=== PATIENT | male | born 1955 | race Caucasian/White ===

== ENCOUNTER 2021-06-12 08:31 | Outpatient (CLI) | payer OTHER, SELFPAY ==
--- NOTE | ~2021-06-12 | PE_ITS ---
EXAMINATION: PET skull to mid thigh DATE: 06/12/2021 13:13 INDICATION: Esophageal cancer TECHNIQUE: Blood glucose level was 117 mg/dL. 10.095 mCi of 18-fluorodeoxyglucose (18-FDG) was admini stered i.v. Low dose computed tomography (CT) images were acquired from the base of the brain to the proximal thighs for attenuation correction and anatomic localization. Positron emission tomography (P ET) images were acquired in the same distribution beginning 71 minutes after injection. Images includ ing fused PET/CT images were reconstructed in axial, coronal, and sagittal planes. Automated exposure control technique was employed. The dose-length product was 957.80mGy-cm. COMPARISON: None FINDINGS: Head/neck: There is symmetric increased activity in the oral cavity, laryngeal muscles and ocular muscles withou t CT correlate, likely physiologic. No pathologically enlarged cervical lymphadenopathy or suspicious foci of increased FDG uptake in the visualized head or neck. Chest: Dual lead pacemaker seen with tips at the right atrial appendage and at the apex of the right ventric le. 3 small nodules at the apical segment of the right upper lobe measuring up to 5 mm in maximal luis meter without discernible FDG activity. No other larger or FDG avid nodules identified. No pneumonia, poor edema or other pulmonary infiltrates. No pleural effusion. Heart size is normal. No pericardial effusion. Thoracic aorta is normal in caliber. FDG avid wall thickening at the distal esophagus with maximal SUV of 7.9 and extending into the cardia of the stomach with maximal SUV is 9.5. No patholog ically enlarged or FDG avid thoracic lymphadenopathy. Abdomen/pelvis/proximal thighs: There is a subtle approximately 2 cm hypodense mass at the posterior dome of the liver with increased FDG uptake with maximal SUV of 4.1 relative to the maximal SUV in the surrounding liver of 3.0. No o ther definitive hepatic lesions identified. In addition to the previous noted increased FDG uptake at the esophagus and cardia of the stomach, there is slightly more inferior conglomeration of likely me tastatic FDG avid lymph node which abut and are difficult to distinguish from the adjacent aorta and the cephalad margin of the pancreas. The conglomeration measures approximately 3.8 cm in diameter and which are 2 centers of increased FDG uptake with maximal SUV of 7.3 and 6.0. Physiologic renal accum ulation and excretion of FDG activity in the kidneys, bladder and along portions of ureters. The gal lbladder, pancreas, spleen and bilateral adrenal glands are normal. Moderate uptake scattered through out the bowels without radiologic correlate, also likely physiologic. There is an approximately 2.3 x 1.2 cm FDG avid aortocaval lymph node which abuts and is difficult to distinguish from the aorta jus t below level of the renal arteries with maximal SUV of 4.7. No other abnormal foci of increased FDG uptake or other pathologically enlarged lymphadenopathy in the abdomen, pelvis or proximal thighs. Musculoskeletal: Small amount of likely extravasated activity at the site of injection at the dorsum of the right hand . Increased uptake overlying the bilateral greater trochanters consistent with mild trochanteric burs itis. Mild diffuse likely physiologic increased uptake along some of the muscle at the bilateral fore arms. Severe lower lumbar spondylosis. Osteonecrosis at the bilateral femoral heads more advanced on the right where there is small region of collapse of the articular cortex. No suspicious lytic, blast ic or FDG avid bone lesions. IMPRESSION: 1. Prominent FDG avid wall thickening at the distal esophagus extending to the cardia of the stomach consistent with provided history of esophageal cancer. 2. Increased uptake in a conglomeration of lymph nodes anterior to the liberty of the diaphragm and more caudal aortocaval lymph node consistent with
[2021-06-12 09:46] LABS: Glucose Point of Care 117 mg/dl (65-105)
== END 2021-06-12 08:32 | disposition home or self-care (01) ==
PROVIDERS: PCP Internal Medicine; Visit Provider Internal Medicine Hematology & Oncology
DX: C15.5 Malignant neoplasm of lower third of esophagus (principal)
CPT/HCPCS: 78815; A9552

== ENCOUNTER 2021-07-04 08:27 | Outpatient (CLI) | payer OTHER, SELFPAY ==
--- NOTE | 2021-07-04 | ECHO_ITS ---
Patient Info Name: Jordi Segura Age: 65 years : 1955 Gender: Male Ht: 72 in Wt: 195 lbs BSA: 2.13 m2 HR: 73 bpm BP: 114 / 73 mmHg Technical Quality: Fair Exam Date: 07/04/2021 9:17 AM Exam Location: [facility] Patient Status: Outpatient Admit Date: 07/04/2021 Staff Ordering Physician: Dean Marx MD Supervisor [employer]: Bayron Aguayo RDCS, RT Attending Provider: Dean Marx MD Referring Physician: Francisco J WARNER; Exam Type: CA echo doppler color flow Study Info Indications C77.0 - Secondary and unspecified malignant neoplasm of lymph nodes of head, face and neck Complete two-dimensional, color flow and Doppler transthoracic echocardiogram is performed. Strain analysis performed. Summary 1. Complete two-dimensional, color flow and Doppler transthoracic echocardiogram is performed. 2. Left ventricular systolic function is preserved, estimated at 50-55%. 3. Left ventricular chamber dimension is normal. 4. The left ventricular diastolic function is grade I diastolic dysfunction. 5. E/e' 7 is not elevated. 6. Global longitudinal strain is slightly abnormal at -16.9%. 7. There is trace tricuspid valve regurgitation. 8. No pulmonary hypertension, estimated pulmonary arterial systolic pressure is 32 mmHg. 9. There is trace pulmonic regurgitation. 10. Normal inferior vena cava with >50% collapse upon inspiration consistent with elevated right atrial pressure, 10 mmHg. Left Ventricle E/e' 7 is not elevated. Global longitudinal strain is slightly abnormal at -16.9%. Left ventricular systolic function is preserved, estimated at 50-55%. Left ventricular chamber dimension is normal. The left ventricular diastolic function is grade I diastolic dysfunction. Right Ventricle Right ventricular systolic function is normal and with normal TAPSE 2.0 cm. Right ventricular chamber dimension is normal. Left Atria Left atrial chamber dimension is normal. Right Atria Right atrial chamber dimension is normal. Aortic Valve The aortic valve is trileaflet. There is no aortic valve stenosis. There is no aortic valve regurgitation. Pulmonic Valve There is trace pulmonic regurgitation. Mitral Valve There is no mitral valve stenosis. There is no mitral valve regurgitation. Tricuspid Valve There is trace tricuspid valve regurgitation. No pulmonary hypertension, estimated pulmonary arterial systolic pressure is 32 mmHg. Pericardium/Pleural There is no pericardial effusion. Inferior Vena Cava Normal inferior vena cava with >50% collapse upon inspiration consistent with elevated right atrial pressure, 10 mmHg. Aorta The aortic root size at the sinus of Valsalva is normal. Left Ventricular Outflow Tract Name Value Normal LVOT 2D LVOT Diameter 2.1 cm LVOT Doppler LVOT Peak Gradient 3 mmHg LVOT Mean Gradient 1 mmHg LVOT VTI 16 cm LVOT VTI/AV VTI Ratio 0.7 LVOT Stroke Volume 57 ml LVOT CO 3.8 l/min
== END 2021-07-04 08:28 | disposition home or self-care (01) ==
PROVIDERS: PCP Internal Medicine; Visit Provider Internal Medicine Hematology & Oncology
DX: C15.5 Malignant neoplasm of lower third of esophagus (principal); C77.0 Secondary and unspecified malignant neoplasm of lymph nodes of head, face and neck
CPT/HCPCS: 93306

== ENCOUNTER 2021-10-03 09:22 | Outpatient (CLI) | payer MEDICARE, OTHER, SELFPAY ==
--- NOTE | ~2021-10-03 | CT_ITS ---
EXAMINATION: CT chest abdomen pelvis w con DATE: 10/03/2021 09:47 INDICATION: Cancer of distal third of esophagus TECHNIQUE: Computed tomography (CT) of the chest, abdomen, and pelvis was performed with 100 CC Omnip aque 300 intravenous contrast. Automated exposure control and iterative reconstruction technique were employed. Exam dose: 678.92 mGy-cm total exam DLP. COMPARISON: None FINDINGS: CHEST CT: Right Port-A-Cath catheter Probable small scar in the posterior right upper lobe (series 4 image 30). Occasional scattered pulmonary nodular densities measuring approximately 2.5 mm or less, likely benig n. No pulmonary infiltrate or consolidation. Left-sided transvenous pacemaker device with leads in right atrium and right ventricle. Normal heart size. No pericardial effusion. No thoracic aortic aneurysm or dissection. No hilar or mediastinal mass lesion or lymphadenopathy. There is nonspecific circumferential soft tissue thickening of the distal esophagus. Residual or recu rrent esophageal neoplasm cannot be confirmed or excluded on this examination. Gastrostomy tube in the stomach. ABDOMEN/PELVIS CT: There are multiple scattered approximately 8 mm and smaller hypoattenuating lesions of the liver, too small to definitively characterize but most likely cysts and/or hemangiomas. There is edema of the gallbladder wall, measuring up to 7 mm thickness. This suggests possible acute cholecystitis. No bile duct dilatation. No pancreatic mass lesion, calcification or ductal dilatation. There is mild peripancreatic fat stran ding which may indicate acute uncomplicated pancreatitis. Normal morphology of the adrenal glands. No renal mass lesion or urinary tract calculus or hydroureteronephrosis. Normal caliber of the abdominal aorta. No intraperitoneal or retroperitoneal or pelvic mass lesion or adenopathy or ascites. There is high density or enhancing lobular mass along the right posterior bladder wall, suspicious fo r urothelial carcinoma of the urinary bladder or less likely prostate cancer. Cystoscopic correlation and biopsy are recommended. There is prostate enlargement. There is moderately prominent diffuse thickening of the urinary bladde r wall, which is likely due to bladder outlet obstruction associated with prostate enlargement. There is mild free fluid in the dependent lower pelvis. There is atherosclerotic calcification but normal caliber of the abdominal aorta and iliac arteries. No intraperitoneal or retroperitoneal or pelvic mass lesion or adenopathy. Normal appendix. There are scattered small bowel air-fluid levels but no abnormal dilatation of small or large bowel or apparent bowel obstruction. No bowel wall thickening is noted. Diffuse idiopathic skeletal stripe hyperostosis of the thoracic spine. Moderately severe degenerative disc disease and mild retrolisthesis at L5-S1 and moderate degenerativ e disease at L4-5. No suspicious osteolytic or osteoblastic lesions. IMPRESSION: Nonspecific circumferential soft tissue thickening of the distal esophagus; residual or recurrent esophageal neoplasm cannot be confirmed or excluded on this examination. Consider direct vi sualization and biopsy as clinically appropriate Probable small posterior right upper lobe scar Left-sided dual-lead pacemaker Multiple 8 mm or smaller hepatic lesions, too small to definitively characterize Prominent thickening/edema of the gallbladder wall, which may indicate acute cholecystitis Mild peripancreatic fat infiltration; cannot exclude mild acute interstitial pancreatitis Right posterior bladder wall 1.7 cm mass, suspicious for urothelial carcinoma; consider cystoscopy an d biopsy Minimal ascites Reviewed, dictated and finalized at [facility]. Reviewed, dictated and finalized
== END 2021-10-03 09:23 | disposition home or self-care (01) ==
PROVIDERS: PCP Internal Medicine; Visit Provider Internal Medicine Hematology & Oncology
DX: C15.5 Malignant neoplasm of lower third of esophagus (principal); Z95.0 Presence of cardiac pacemaker
CPT/HCPCS: 71260; 74177; Q9967

== ENCOUNTER 2021-10-08 09:35 | Outpatient (CLI) | payer MEDICARE, OTHER, SELFPAY ==
--- NOTE | 2021-10-08 | ECHO_ITS ---
Patient Info Name: Jordi Segura Age: 65 years : 1955 Gender: Male Ht: 72 in Wt: 187 lbs BSA: 2.08 m2 HR: 110 bpm BP: 171 / 79 mmHg Technical Quality: Fair Exam Date: 10/08/2021 10:28 AM Exam Location: [facility] Patient Status: Outpatient Admit Date: 10/08/2021 Staff Ordering Physician: Dean Marx MD [employer] Engineer: Bayron Aguayo RDCS, RT Attending Provider: Dean Marx MD Referring Physician: Francisco J WARNER; Exam Type: CA echo doppler color flow Study Info Indications C80.1 - Malignant (primary) neoplasm, unspecified Complete two-dimensional, color flow and Doppler transthoracic echocardiogram is performed. Strain analysis performed. Summary 1. Complete two-dimensional, color flow and Doppler transthoracic echocardiogram is performed. 2. Left ventricular chamber dimension is normal. 3. Left ventricular systolic function is normal, estimated at 50-55%. 4. Left ventricular septal wall motion is abnormal with septal motion related to bundle branch block. 5. The left ventricular diastolic function is normal. 6. E/e' 6 is not elevated. 7. Global longitudinal strain is abnormal at -9.6%. 8. There is mild mitral valve regurgitation. 9. No pulmonary hypertension, estimated pulmonary arterial systolic pressure is 22 mmHg. Left Ventricle E/e' 6 is not elevated. Global longitudinal strain is abnormal at -9.6%. Left ventricular chamber dimension is normal. Left ventricular systolic function is normal, estimated at 50-55%. Left ventricular septal wall motion is abnormal with septal motion related to bundle branch block. The left ventricular diastolic function is normal. Right Ventricle Right ventricular chamber dimension is normal. Right ventricular systolic function is normal. Left Atria Left atrial chamber dimension is normal. Right Atria Right atrial chamber dimension is normal. Aortic Valve The aortic valve is trileaflet. There is no aortic valve stenosis. There is no aortic valve regurgitation. Pulmonic Valve There is no pulmonic regurgitation. Mitral Valve There is no mitral valve stenosis. There is mild mitral valve regurgitation. Tricuspid Valve There is no tricuspid valve regurgitation. No pulmonary hypertension, estimated pulmonary arterial systolic pressure is 22 mmHg. Pericardium/Pleural There is no pericardial effusion. Inferior Vena Cava Normal inferior vena cava with >50% collapse upon inspiration consistent with normal right atrial pressure, 5 mmHg. Aorta The aortic root size at the sinus of Valsalva is normal. Left Ventricular Outflow Tract Name Value Normal LVOT 2D LVOT Diameter 2.2 cm LVOT Doppler LVOT Peak Gradient 2 mmHg LVOT Mean Gradient 1 mmHg LVOT VTI 11 cm LVOT VTI/AV VTI Ratio 0.8 LVOT Stroke Volume 42 ml LVOT CO 2.3 l/min LVOT CI 1.1 l/min/m2 Mitral Valve
== END 2021-10-08 09:36 | disposition home or self-care (01) ==
LOC: ANHCARD 09:37
PROVIDERS: PCP Internal Medicine; Visit Provider Internal Medicine Hematology & Oncology
DX: C15.5 Malignant neoplasm of lower third of esophagus (principal); Z51.11 Encounter for antineoplastic chemotherapy
CPT/HCPCS: 93306

== ENCOUNTER 2021-11-19 06:47 | Outpatient (RCR) | payer MEDICARE, OTHER, SELFPAY ==
[2021-11-19] MEDS: SODIUM CHLORIDE 0.9% IV 250 ML 30 ML IV CONT (07:35)
[2021-11-19 07:51] VITALS: BP 96/46; PULSE 74; RESP 20; TEMP 36.4; O2SAT 97
[2021-11-19 07:55] VITALS: TEMP 36.4
[2021-11-19] MEDS: ACETAMINOPHEN 325 MG TABLET 650 MG PO (07:55)
[2021-11-19] MEDS: diphenhydrAMINE HCl CAP 25 MG CAPSULE PO (07:57)
[2021-11-19 08:00] VITALS: BP 107/61; PULSE 74; RESP 22; TEMP 36.3; O2SAT 96
[2021-11-19 08:15] VITALS: BP 99/53; PULSE 71; RESP 20; TEMP 36.3; O2SAT 94
[2021-11-19 09:10] VITALS: BP 101/54; PULSE 70; RESP 22; TEMP 36.3; O2SAT 92
[2021-11-19 10:10] VITALS: BP 98/60; PULSE 72; RESP 22; TEMP 36.6; O2SAT 96
== END 2022-02-17 23:59 | disposition home or self-care (01) ==
LOC: ANHCPCTRAN 06:47
PROVIDERS: PCP Internal Medicine; Visit Provider Internal Medicine Hematology & Oncology
DX: C15.5 Malignant neoplasm of lower third of esophagus (principal); D64.9 Anemia, unspecified
CPT/HCPCS: 36430; 86850; 86900; 86901; 86920; A9270; J1642; J7050; P9016

== ENCOUNTER 2021-11-23 09:11 | Inpatient (IN) | payer MEDICARE, OTHER, SELFPAY ==
[2021-11-23] VITALS (13 sets, daily range): BP systolic 106–140; BP diastolic 49–68; PULSE 73–90; RESP 18–26; TEMP 36.4–38; O2SAT 91–98; BMI 23.1
--- NOTE | ~2021-11-23 | XR_ITS ---
EXAMINATION: XR chest 1V portable DATE: 12/04/2021 05:11 INDICATION: Shortness of breath. Desaturations. TECHNIQUE: frontal view of the chest was obtained. COMPARISON: Chest radiograph dated 12/02/21 FINDINGS: No significant change in diffuse bilateral airspace and interstitial opacities throughout both lungs relatively sparing the apices and subpleural lungs. No pleural effusion or pneumothorax. The cardiome diastinal silhouette is normal. Dual lead pacemaker seen with leads projecting over the expected loca tions of the right atrium and right ventricle. Right subclavian central venous port catheter with dis yane tip at the caudal superior vena cava. IMPRESSION: 1. Unchanged diffuse bilateral lung disease which could represent pulmonary edema or pneumonia. Reviewed, dictated and finalized at location [facility]. IMPRESSION: 1. Unchanged diffuse bilateral lung disease which could represent pulmonary graciela ma or pneumonia.
--- NOTE | ~2021-11-23 | US_ITS ---
EXAMINATION: US venous doppler [facility] DATE: 12/07/2021 12:19 INDICATION: Lower limb edema. TECHNIQUE: Grayscale ultrasound images without and with compression and Doppler ultrasound images of the bilateral lower extremity veins were obtained. COMPARISON: None. FINDINGS: The visualized portions of right common femoral vein, profunda (deep) femoral vein, femoral vein, pop liteal vein, peroneal veins, posterior tibial veins, and greater saphenous vein outflow are patent. The visualized portions of left common femoral vein, profunda femoral vein, femoral vein, popliteal v ein, peroneal veins, posterior tibial veins, and greater saphenous vein outflow are patent. IMPRESSION: 1. No deep venous thrombosis. Reviewed, dictated and finalized at location [facility].
--- NOTE | ~2021-11-23 | XR_ITS ---
EXAMINATION: XR chest 1V portable DATE: 11/24/2021 09:12 INDICATION: Hypoxia. TECHNIQUE: A single frontal view of the chest was obtained. COMPARISON: Chest single view 11/23/2021, chest CT 11/23/2021 FINDINGS: There are airspace and interstitial opacities involving all lung zones bilaterally and no p leural effusion or pneumothorax. The heart size is normal. There is a left chest wall pacer with lead s in the right atrium and right ventricle. There is a right subclavian port with tip at superior cavo atrial junction. A gastrostomy tube is noted. IMPRESSION: 1. Diffuse lung disease with mild improvement in right upper lobe, consistent with pulmonary edema ve rsus pneumonia. Reviewed, dictated and finalized at location A. IMPRESSION: 1. Diffuse lung disease with mild improvement in right upper lobe, consistent w ith pulmonary edema versus pneumonia.
--- NOTE | ~2021-11-23 | XR_ITS ---
XR chest 1V portable DATE: 11/29/2021 06:40 INDICATION: Respiratory failure TECHNIQUE: Portable AP chest on 11/29/2021 at 0518 hours COMPARISON: 11/28/2021 portable AP chest at 0520 hours FINDINGS: Diffuse bilateral pulmonary infiltrates persist relatively unchanged since 12/09/2019. There is prominence of minor fissure suggesting subpleural edema. Pippa B-lines are noted, consistent wit h interstitial edema. Heart size is within normal limits. Left-sided dual-lead pacemaker with leads overlying right atrium and right ventricle. Right Port-A-Cath catheter tip is situated near the superior cavoatrial junction. IMPRESSION: No change since 12/08/2021 Reviewed, dictated and finalized at location A. IMPRESSION: No change since 12/08/2021
--- NOTE | ~2021-11-23 | XR_ITS ---
EXAMINATION: XR chest 1V portable DATE: 11/28/2021 05:33 INDICATION: Respiratory failure. TECHNIQUE: A single frontal view of the chest was obtained. COMPARISON: Chest single view 11/27/2021 FINDINGS: There are airspace and interstitial opacities throughout the lungs bilaterally. No pleural effusion or pneumothorax. The heart size is normal. There is a left chest wall pacer with leads in th e right atrium and right ventricle. There is a right subclavian port with tip at superior cavoatrial junction. A gastrostomy tube is noted. IMPRESSION: 1. Stable diffuse lung disease, consistent with pulmonary edema versus pneumonia versus acute respira tory distress syndrome (ARDS). Reviewed, dictated and finalized at location A. IMPRESSION: 1. Stable diffuse lung disease, consistent with pulmonary edema versus pneumoni a versus acute respiratory distress syndrome (ARDS).
--- NOTE | ~2021-11-23 | XR_ITS ---
EXAMINATION: XR chest 1V portable DATE: 11/23/2021 10:23 INDICATION: Shortness of breath. TECHNIQUE: A single frontal view of the chest was obtained. COMPARISON: Chest CT 10/03/2021 FINDINGS: There are airspace opacities in all lung zones bilaterally. No pleural effusion or pneumoth orax. The heart size is normal. There is a left chest wall pacer with leads in the right atrium and r ight ventricle. There is a right subclavian port with tip at superior cavoatrial junction. IMPRESSION: 1. Diffuse lung disease, consistent with pulmonary edema versus pneumonia. Reviewed, dictated and finalized at location A.
--- NOTE | ~2021-11-23 | XR_ITS ---
EXAMINATION: XR chest 2V DATE: 11/25/2021 12:53 INDICATION: Shortness of breath. TECHNIQUE: Frontal and lateral views of the chest were obtained on 3 radiographs. COMPARISON: Chest single view 11/24/2021, chest CT 11/23/2021 FINDINGS: There are airspace opacities involving all lung zones bilaterally. There are small pleural effusions. No pneumothorax. The heart size is normal. There is a left chest wall pacer with leads in the right atrium and right ventricle. There is a right subclavian port with tip at superior cavoatria l junction. A gastrostomy tube is noted. IMPRESSION: 1. Diffuse lung disease with worsening in right lower lung zone, consistent with pulmonary edema vers us pneumonia. Reviewed, dictated and finalized at location A. IMPRESSION: 1. Diffuse lung disease with worsening in right lower lung zone, consistent wit h pulmonary edema versus pneumonia.
--- NOTE | ~2021-11-23 | XR_ITS ---
XR chest 1V portable DATE: 11/30/2021 05:53 INDICATION: Respiratory failure TECHNIQUE: Portable AP chest on 11/30/2021 at 0503 hours COMPARISON: Portable AP chest on 11/30/2019 04/26/2017 FINDINGS: Bilateral primarily central and lower lung zone infiltrates, mildly improved since 2. Heart size appears within normal range. Aortic arch calcification. No pleural effusion or pneumothora x is evident. Left-sided dual-lead pacemaker device with leads overlying right atrium and right ventricle. Right Port-A-Cath catheter, distal tip situated near superior cavoatrial junction. Gastrostomy tube b alloon overlies the left upper quadrant. IMPRESSION: Bilateral central and lower lung zone infiltrates, mildly improved since 11/30/1999 Reviewed, dictated and finalized at location A.
--- NOTE | ~2021-11-23 | XR_ITS ---
EXAMINATION: XR chest 1V portable DATE: 12/07/2021 05:53 INDICATION: Hypoxia. TECHNIQUE: A single frontal view of the chest was obtained. COMPARISON: Chest single view 12/04/2021, chest CT 11/23/2021 FINDINGS: There are airspace opacities in all right lung zones, worst in the mid and lower lung zones . There are airspace opacities in left mid and lower lung zones. No pleural effusion or pneumothorax. The heart size is normal. There is a left chest wall pacer with leads in the right atrium and right ventricle. There is a right subclavian port with tip at superior cavoatrial junction. A gastrostomy t ube is noted. IMPRESSION: 1. Unchanged diffuse lung disease, consistent with pneumonia versus drug reaction. Reviewed, dictated and finalized at location A. IMPRESSION: 1. Unchanged diffuse lung disease, consistent with pneumonia versus drug reacti on.
--- NOTE | ~2021-11-23 | CT_ITS ---
EXAMINATION: CTA chest PE protocol DATE: 11/23/2021 11:20 INDICATION: Shortness of breath. Esophageal cancer. TECHNIQUE: Computed tomography angiography (CTA) of the chest was performed with 100 mL Omnipaque-350 intravenous contrast timed to evaluate the pulmonary arteries. Coronal maximum intensity projection 3D-reconstructions were created by the technologist. Automated exposure control and iterative reconst ruction technique were employed. The dose-length product was 501.19 mGy-cm. COMPARISON: Chest CT 10/03/2021, PET/CT 06/12/21 FINDINGS: There is mild emphysema. There are groundglass opacities, septal thickening, and crazy pavi ng involving all lobes. There is a 4 mm nodule in right lower lobe without change from 06/12/21, likel y benign. There are small pleural effusions. The heart size is normal. No pericardial effusion. There is a left chest pacer with leads in right atrium and right ventricle. There is no pulmonary embolus. There is a gastrostomy tube in expected position. There is a right subclavian port with tip at super ior cavoatrial junction. There is mild thoracic spondylosis. IMPRESSION: 1. No pulmonary embolus. 2. Diffuse lung disease, consistent with moderate pulmonary edema without or with superimposed pneumo chuy. 3. Small pleural effusions. Reviewed, dictated and finalized at location A. IMPRESSION: 1. No pulmonary embolus. 2. Diffuse lung disease, consistent with moderate pulmonary edema without or wi th superimposed pneumonia. 3. Small pleural effusions.
--- NOTE | ~2021-11-23 | XR_ITS ---
EXAMINATION: XR chest 1V portable DATE: 11/27/2021 11:59 INDICATION: Lung disease status post bronchoscopy. TECHNIQUE: A single frontal view of the chest was obtained. COMPARISON: Chest single view at 8:42 AM FINDINGS: There are airspace and interstitial opacities throughout the lungs bilaterally. No pleural effusion or pneumothorax. The heart size is normal. There is a left chest wall pacer with leads in th e right atrium and right ventricle. There is a right subclavian port with tip at superior cavoatrial junction. IMPRESSION: 1. Diffuse lung disease with mild worsening in right lower lung zone, consistent with pulmonary edema versus pneumonia. Reviewed, dictated and finalized at location A. IMPRESSION: 1. Diffuse lung disease with mild worsening in right lower lung zone, consisten t with pulmonary edema versus pneumonia.
--- NOTE | ~2021-11-23 | XR_ITS ---
EXAMINATION: XR chest 1V portable DATE: 11/27/2021 09:07 INDICATION: Pneumonia. TECHNIQUE: A single frontal view of the chest was obtained. COMPARISON: Chest 2 views 11/25/2021, chest CT 11/23/2021 FINDINGS: There are diffuse airspace and interstitial opacities in all lung zones bilaterally. No ple ural effusion or pneumothorax. The heart size is normal. There is a left chest wall pacer with leads in the right atrium and right ventricle. A gastrostomy tube is noted. There is a right subclavian por t with tip at superior cavoatrial junction. IMPRESSION: 1. Stable diffuse lung disease, consistent with pulmonary edema versus pneumonia. Reviewed, dictated and finalized at location A. IMPRESSION: 1. Stable diffuse lung disease, consistent with pulmonary edema versus pneumoni a.
--- NOTE | ~2021-11-23 | XR_ITS ---
EXAMINATION: XR chest 1V portable DATE: 12/01/2021 05:54 INDICATION: Respiratory failure TECHNIQUE: frontal view of the chest was obtained. COMPARISON: 11/30/21 FINDINGS: Groundglass opacities and increased interstitial pattern in the bilateral mid and lower lung zones. N o pleural effusion or pneumothorax. The cardiomediastinal silhouette is normal. Right internal jugula r central venous port catheter with distal tip at the caudal superior vena cava. Dual lead pacemaker seen with leads projecting over the expected locations of the right atrium and right ventricle. Percu taneous gastrostomy tube in the right upper quadrant. IMPRESSION: 1. With unchanged interstitial and airspace opacities in the bilateral mid and lower lung zones which could represent mild pulmonary edema or pneumonia. Reviewed, dictated and finalized at location A.
--- NOTE | ~2021-11-23 | XR_ITS ---
EXAMINATION: XR chest 1V portable DATE: 12/02/2021 05:32 INDICATION: Respiratory failure TECHNIQUE: frontal view of the chest was obtained. COMPARISON: Chest radiograph dated 12/01/2021 FINDINGS: Right internal jugular central venous port catheter with distal tip at the caudal superior vena cava. Dual lead pacemaker seen with leads projecting over the expected locations of the right atrium and r ight ventricle. Percutaneous gastrostomy tube in the right upper quadrant. No significant change in diffuse opacities throughout both lungs relatively sparing the apices subple ural lungs. No pleural effusion or pneumothorax. The cardiomediastinal silhouette is normal. IMPRESSION: 1. Unchanged diffuse bilateral lung disease which could represent pulmonary edema or pneumonia. Reviewed, dictated and finalized at location A. IMPRESSION: 1. Unchanged diffuse bilateral lung disease which could represent pulmonary graciela ma or pneumonia.
--- NOTE | 2021-11-23 09:21 | ED.FEVER ---
HPI - Fever General Chief Complaint: Fever <MERLENE Carvajal Last Filed: 11/23/21 13:23> Stated Complaint: fever, cough <MERLENE Carvajal Last Filed: 11/23/21 13:23> Time Seen by Provider: 11/23/21 09:20 <MERLENE Carvajal Last Filed: 11/23/21 13:23> Source: patient and old records reviewed <MERLENE Carvajal Last Filed: 11/23/21 13:23> Mode of arrival: ambulatory <MERLENE Carvajal Filed: 11/23/21 13:23> Limitations: no limitations <MERLENE Carvajal Last Filed: 11/23/21 13:23> History of Present Illness HPI Narrative: Patient is a 66 y/o male who presents to the ED with c/o SOB. Patient is currently undergoing chemotherapy for esophageal adenocarcinoma. His oncologist is Dr. Marx. He states he has not received his last few chemotherapy treatments as his hemoglobin has been low. He received a blood transfusion here last Wednesday of 1 unit PRBC. He began to feel unwell on and complains of fever, up to 101 ?F at home, cough, myalgias, and difficulty breathing, worse with exertion. He complains of chest wall pain with coughing, but denies chest pain at rest. Denies any abdominal pain, nausea, vomiting, BLE pain. <MERLENE Carvajal Last Filed: 11/23/21 13:23> Related Data Home Medications: Home Medications Medication Instructions Recorded Confirmed aspirin 81 mg tablet 81 mg PO DAILY 06/04/21 11/19/21 magnesium 250 mg tablet 250 mg PO BID 06/04/21 11/19/21 pantoprazole 40 mg tablet,delayed 40 mg PO HS PRN Heartburn 06/04/21 11/19/21 release atenolol 100 mg tablet mg 11/23/21 diltiazem HCl 300 mg mg PO 11/23/21 capsule,extended release 24 hr gabapentin 300 mg capsule mg 11/23/21 hydrocodone 7.5 mg-acetaminophen tablet 11/23/21 11/23/21 325 mg tablet potassium chloride 20 mEq meq PO 11/23/21 tablet,extended release(part/cryst) trazodone 50 mg tablet mg 11/23/21 <Gavi Tan PA-C - Last Filed: 11/23/21 13:23> Allergies/Adverse Reactions: Allergies Allergy/AdvReac Type Severity Reaction Status Date / Time cyclobenzaprine AdvReac Mild Confusion Verified 11/23/21 09:59 [From Flexeril] <Gavi Tan PA-C - Last Filed: 11/23/21 13:23> Review of Systems Review of Systems: CONSTITUTIONAL: Reports fever. CARDIOVASCULAR: Reports chest wall pain with coughing, denies chest pain at rest. Denies edema. RESPIRATORY: Reports cough and dyspnea. GASTROINTESTINAL: Denies abdominal pain, nausea, vomiting. MUSCULOSKELETAL: Reports mylagias. <Gavi Tan PA-C - Last Filed: 11/23/21 13:23> All systems reviewed & are unremarkable except as noted in HPI and below <Gavi Tan PA-C - Last Filed: 11/23/21 13:23> [facility] Past Medical History Medical History: Medical History Anemia associated with chemotherapy Hyperlipidemia Hypertension Malignant neoplasm of lower third of esophagus <Gavi Tan PA-C - Last Filed: 11/23/21 13:23> Surgical History Surgical History: Surgical History History of esophagogastroduodenoscopy (EGD) History of pacemaker Port-A-Cath in place <Gavi Tan PA-C - Last Filed: 11/23/21 13:23> Social History Social History: Social History Smoking packs per day: 1 Smoking cigarettes per day: 20.0 Years smoked: 30 Smoking pack-years: 30.00 Smoking status: Former smoker Tobacco type: cigarettes Spiritual care concerns: No <Gavi Tan PA-C - Last Filed: 11/23/21 13:23> Exam Narrative: GENERAL: Mildly ill appearing, non-toxic, in mild acute distress. HEAD: Normocephalic, atraumatic. NECK: Supple. No adenopathy, no masses. RESPIRATORY: Airway patent, respirations m
--- NOTE | 2021-11-23 09:32 | ECG_ITS ---
Measurements Intervals [place] Rate: 85 P: 41 SC: 153 QRS: 4 QRSD: 89 T: 15 QT: 359 QTc: 429 Interpretive Statements SINUS RHYTHM DELAYED PRECORDIAL R/S TRANSITION BORDERLINE T WAVE ABNORMALITY- INFERIOR LEADS BASELINE ARTIFACT- I, II, AVR, AVL BORDERLINE ECG NO PREVIOUS ECG AVAILABLE FOR COMPARISON Electronically Signed On 11-23-2021 13:59:24 CDT by Douglas Diane D.O.
[2021-11-23 09:59] LABS: Base Excess ABG -1.9 mEq/l (+/-2.0); Fractional Inspired Oxygen 21 %; HCO3 ABG 21.2 mEq/l (22.0-26.0); Oxygen Content ABG 11.2 %vol (16.0-22.0); PO2 FiO2 Ratio Arterial Blood 2.28 %; Total Hemoglobin 9.5 g/dL (12.0-18.0); pH ABG 7.467 (7.350-7.450)
[2021-11-23 10:02] LABS: PO2 ABG 47.8 mmHg (80.0-100.0)
[2021-11-23 10:03] LABS: Oxygen Saturation ABG 86.7 % (95.0-100.0)
[2021-11-23 10:04] LABS: Basophils Percent Auto 0.2 % (0.2-1.2); Eosinophils Percent Auto 0.3 % (0-4.4); Hematocrit 28.4 % (42.0-52.0); Hemoglobin 8.8 g/dL (14.0-18.0); Immature Granulocyte Absolute 0.06 K/mm3 (0.00-0.031); Immature Granulocyte Percent A 0.5 % (0-0.5); Lymphocytes Absolute Auto 0.25 K/mm3 (0.9-3.2); Mean Corpuscular Hemoglobin 28.8 pg (26-34); Mean Corpuscular Volume 92.8 fl (80-100); Mean Platelet Volume 9.8 fl (7.4-10.4); Monocytes Percent Auto 8.1 % (2.6-8.5); Neutrophils Absolute Auto 11.2 K/mm3 (1.3-6.7); Neutrophils Percent Auto 88.9 % (45.5-73.1); Platelet Count Result 199 k/mm3 (150-375); Red Blood Count 3.06 M/mm3 (4.6-6.20); Red Cell Distribution Width 15.2 % (11.5-14.5); White Blood Count 12.5 K/mm3 (4.5-10.0)
[2021-11-23 10:04] LABS: Device ROOM AIR; Modified Allen's Test Pass; Oxyhemoglobin 83.7 % THb (90.0-100.0); Site Drawn RIGHT RADIAL
[2021-11-23 10:17] LABS: SARS-CoV-2 RNA PCR Negative
[2021-11-23 10:21] LABS: Alanine Aminotransferase 15 U/L (6-50); Albumin Level 3.6 g/dL (3.5-5.1); Alkaline Phosphatase 124 U/L (38-126); Anion Gap 10 mmol/L (8-16); Aspartate Amino Transferase 20 U/L (17-59); Bilirubin,Total 1.8 mg/dL (0.2-1.3); Blood Urea Nitrogen 7 mg/dL (9-20); Calcium 8.7 mg/dL (8.4-10.2); Carbon Dioxide 21 mmol/L (22-30); Chloride 104 mmol/L (98-107); Estimated CRCL calculation 99 ml/min; Estimated Glomerular Filt Rate > 60; Glucose 127 mg/dL (65-110); Potassium 3.9 mmol/L (3.4-5.0); Sodium 135 mmol/L (137-145)
[2021-11-23 10:32] LABS: Troponin I < 0.012 ng/mL (0.000-0.034)
[2021-11-23 10:41] LABS: Platelet Estimate Adequate (Adequate)
[2021-11-23 10:42] LABS: Poikilocytosis 1+ (NORMAL)
[2021-11-23 10:53] LABS: INR 1.3; Prothrombin Time 15.9 Seconds (11.1-14.7)
[2021-11-23 10:54] LABS: Partial Thromboplastin Time 36.8 SECONDS (22.3-36.8)
[2021-11-23 11:00] LABS: NT Pro B Type Natriuretic Pept 377 pg/mL (5-100)
[2021-11-23] MEDS: ONDANSETRON INJ 4 MG/2 ML VIAL IV PUSH (11:18)
[2021-11-23] MEDS: MORPHINE SULFATE (*CRX) 4 MG/ML INJ IV PUSH (11:19)
[2021-11-23 12:53] LABS: Lactate Dehydrogenase 221 U/L (120-246)
[2021-11-23 12:58] LABS: CRP 17.3 mg/dL (<1.0)
[2021-11-23 13:01] LABS: Reflex Lactic Acid Yes or No Add Lactic
--- NOTE | 2021-11-23 13:28 | PC.NURSE ---
This patient, Jordi Segura , was admitted to Medical Room 243-01. Patient/family oriented to hospital policies and general routines including ID bracelet, bed and alarms, visiting hours, pain management, procedures, bathroom and other care routines, personal items, smoking policy, room service/diet, and visiting hours. Information on how to activate the Rapid Response Team has been discussed. Patient/Family are encouraged to report perceived risks to care and to ask questions if they do not understand what they are told or what they should do.
[2021-11-23 13:43] LABS: Procalcitonin 0.2 ng/mL
--- NOTE | 2021-11-23 14:00 | PM.IMHP ---
H&P: HPI History of Present Illness Date/Time: 11/23/21 14:00 Chief Complaint: Fever, cough. Narrative: This is a 66-year-old male who is currently receiving palliative chemotherapy for esophageal adenocarcinoma per Dr. Marx who presented to the emergency department via private vehicle from home for evaluation of fever and cough. He has anemia related to chemotherapy and he received a blood transfusion last Wednesday. The following day he started to feel unwell with diffuse myalgias, nonproductive cough, dyspnea on exertion, and temperature to 101? F. He has also had some chest wall pain with coughing. A chest x-ray done on arrival showed diffuse lung disease consistent with pulmonary edema versus pneumonia and a subsequent CTA of the chest was negative for PE but once again did show diffuse lung disease, moderate edema with or without superimposed pneumonia. He has since been admitted to the medical floor for IV antibiotics. At the time of my evaluation he coughs quite frequently and he has not been able to rest well due to his chronic back pain and shortness of breath. With further questioning he endorses orthopnea for the past couple of days and he has had some mild lower extremity edema though that has improved over the last day. He has no history of heart disease or CHF and an echocardiogram done just several weeks ago prior to starting his chemotherapy treatment showed a normal EF of 50 to 55% and normal diastolic function. Despite having radiation for his cancer, he has not run into any issues with dysphagia and he denies concerns for aspiration. Review of Systems Review of Systems: Twelve systems were reviewed. No sinus congestion or sore throat. No sick contacts. He denies concerns for aspiration. No chest pain or pleuritic pain. No palpitations or sensations of racing heart. His appetite has been okay. No vomiting. No diarrhea. Except as documented, all other systems were reviewed and are negative. 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 Marx. Surgical History Surgical History (Updated 11/23/21 @ 13:21 by Leonela Marc PA-C) History of colon resection History of esophagogastroduodenoscopy (EGD) History of gastrostomy tube placement History of insertion of tunneled central venous catheter (CVC) with port History of permanent cardiac pacemaker placement Social History Social History (Updated 11/23/21 @ 13:25 by Leonela Marc PA-C) Social History: Surrogate medical decision maker: Lata Segura, spouse. Code status: Full code. Smoking packs per day: 1 Smoking cigarettes per day: 20.0 Years smoked: 30 Smoking pack-years: 30.00 Smoking status: Former smoker Tobacco type: cigarettes Alcohol intake: never Substance use: never Additional living arrangements comments: Lives with spouse in [place]. 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 Spiritual care concerns: No Meds Home Medications and Allergies Home Medications Medication Instructions Recorded Confirmed Type aspirin 81 mg tablet 81 mg PO DAILY 06/04/21 11/23/21 History magnesium 250 mg tablet 250 mg PO BID 06/04/21 11/23/21 History pantoprazole 40 mg tablet,delayed 40 mg PO HS PRN Heartburn 06/04/21 11/23/21 History release atenolol 100 mg tablet 50 mg BID 11/23/21 11/23/21 History diltiazem HCl 300 mg 300 mg PO DAILY 11/23/21 11/23/21 History capsule,extended release 24 hr gabapentin 300 mg capsule 300 mg PO BID 11/23/21 11/23/21 History hydrocodo
[2021-11-23 15:06] LABS: Lactic Acid 2.3 mmol/L (0.7-2.0)
[2021-11-23] MEDS: HYDROcodone/acetaminophen (*CRX) 7.5-325 MG TABLET 1 TAB PO (16:35)
[2021-11-23] MEDS: GABAPENTIN 300 MG CAPSULE PO (17:15)
[2021-11-23] MEDS: MAGNESIUM 13.5 MG TABLET (250 MG MAG GLUCONATE) PO (21:42)
[2021-11-23] MEDS: traZODone HCL 50 MG TABLET PO (21:42)
[2021-11-23] MEDS: atenoloL 50 MG TABLET BY MOUTH (21:42)
[2021-11-24] VITALS (16 sets, daily range): BP systolic 77–136; BP diastolic 35–71; PULSE 65–85; RESP 18–20; TEMP 36.7–37.9; O2SAT 56–96
[2021-11-24] MEDS: ACETAMINOPHEN 325 MG TABLET 650 MG PO ×2 (00:24→09:53)
[2021-11-24] MEDS: FUROSEMIDE INJ 40 MG/4 ML VIAL 20 MG IV PUSH (01:01)
[2021-11-24] MEDS: HYDROcodone/acetaminophen (*CRX) 7.5-325 MG TABLET 1 TAB PO ×3 (01:05→19:24)
[2021-11-24] MEDS: PROMETHAZINE/CODEINE (*CRX) 5 ML SYRUP PO ×4 (01:21→21:42)
[2021-11-24 05:30] LABS: Basophils Percent Auto 0.3 % (0.2-1.2); Eosinophils Absolute Auto 0.1 K/mm3 (0-0.3); Eosinophils Percent Auto 0.8 % (0-4.4); Hematocrit 26.6 % (42.0-52.0); Hemoglobin 8.1 g/dL (14.0-18.0); Immature Granulocyte Absolute 0.04 K/mm3 (0.00-0.031); Immature Granulocyte Percent A 0.4 % (0-0.5); Lymphocytes Absolute Auto 0.33 K/mm3 (0.9-3.2); Lymphocytes Percent Auto 3.5 % (18.3-44.2); Mean Corpuscular HGB Conc 30.5 g/dl (32-36); Mean Corpuscular Hemoglobin 28.1 pg (26-34); Mean Corpuscular Volume 92.4 fl (80-100); Mean Platelet Volume 9.4 fl (7.4-10.4); Monocytes Absolute Auto 1.1 K/mm3 (0.1-0.6); Monocytes Percent Auto 11.9 % (2.6-8.5); Neutrophils Absolute Auto 7.9 K/mm3 (1.3-6.7); Neutrophils Percent Auto 83.1 % (45.5-73.1); Platelet Count Result 168 k/mm3 (150-375); Red Blood Count 2.88 M/mm3 (4.6-6.20); White Blood Count 9.5 K/mm3 (4.5-10.0)
[2021-11-24 05:44] LABS: Alanine Aminotransferase 12 U/L (6-50); Albumin Level 3.2 g/dL (3.5-5.1); Alkaline Phosphatase 101 U/L (38-126); Anion Gap 5 mmol/L (8-16); Aspartate Amino Transferase 20 U/L (17-59); Bilirubin,Total 1.1 mg/dL (0.2-1.3); Blood Urea Nitrogen 10 mg/dL (9-20); Calcium 8.5 mg/dL (8.4-10.2); Carbon Dioxide 28 mmol/L (22-30); Chloride 104 mmol/L (98-107); Estimated CRCL calculation 99 ml/min; Estimated Glomerular Filt Rate > 60; Glucose 137 mg/dL (65-110); Magnesium 2.1 mg/dL (1.6-2.3); Potassium 3.8 mmol/L (3.4-5.0); Sodium 137 mmol/L (137-145)
[2021-11-24] MEDS: ALBUTEROL SULFATE (*SP) AEROSOL 1 PUFF 2 PUFF INHALATION (08:50)
[2021-11-24 09:22] LABS: Alveolar/Arterial O2 Gradient 233.8 mmHg; Base Excess ABG 1.1 mEq/l (+/-2.0); Fractional Inspired Oxygen 48 %; HCO3 ABG 24.3 mEq/l (22.0-26.0); Oxygen Content ABG 13.7 %vol (16.0-22.0); Oxygen Saturation ABG 95.4 % (95.0-100.0); Oxyhemoglobin 93.3 % THb (90.0-100.0); PCO2 ABG 33.5 mmHg (35.0-45.0); PO2 ABG 70.6 mmHg (80.0-100.0); PO2 FiO2 Ratio Arterial Blood 1.47 %; Total Hemoglobin 10.4 g/dL (12.0-18.0); pH ABG 7.479 (7.350-7.450)
[2021-11-24 09:23] LABS: Device HIGH FLOW NASAL CANN; Modified Allen's Test Pass; Site Drawn LEFT RADIAL
[2021-11-24] MEDS: PANTOPRAZOLE 40 MG TABLET PO (09:52)
[2021-11-24] MEDS: ENOXAPARIN 40 MG/0.4 ML SYRINGE SUB-Q (09:52)
[2021-11-24] MEDS: GABAPENTIN 300 MG CAPSULE PO ×2 (09:52→16:44)
[2021-11-24] MEDS: ASPIRIN 81 MG ENTERIC TABLET PO (09:52)
[2021-11-24] MEDS: POTASSIUM CHLORIDE 20 MEQ TABLET.ER PO (09:52)
[2021-11-24] MEDS: atenoloL 50 MG TABLET BY MOUTH (09:52)
[2021-11-24] MEDS: MAGNESIUM 13.5 MG TABLET (250 MG MAG GLUCONATE) PO ×2 (11:46→21:11)
[2021-11-24] MEDS: SODIUM CHLORIDE 0.9% IV 500 ML 999 ML IV CONT (14:34)
[2021-11-24] MEDS: BENZONATATE 100 MG CAPSULE 200 MG PO (16:44)
--- NOTE | 2021-11-24 18:00 | PM.IMPN ---
Progress Note: A&P Assessment and Plan (1) Sepsis: Qualifiers: Sepsis acute organ dysfunction status: unspecified Sepsis type: sepsis due to unspecified organism Qualified Code(s): A41.9 - Sepsis, unspecified organism Code(s): A41.9 - Sepsis, unspecified organism Status: Acute Assessment and Plan: Still with hypotension today, responsive to fluid administration, asymptomatic, rest of the vital signs were stable today, continue antibiotics for pneumonia (2) Multifocal pneumonia: Code(s): J18.9 - Pneumonia, unspecified organism Status: Acute Assessment and Plan: Continue broad-spectrum antibiotics, follow-up blood and urine cultures (3) Hypoxemia: Code(s): R09.02 - Hypoxemia Status: Acute Assessment and Plan: Echocardiogram done several weeks ago showed normal systolic and diastolic function Continue supplemental oxygen, anticipate this to improve as his pneumonia resolved with antibiotic therapy (4) Anemia associated with chemotherapy: Code(s): D64.81 - Anemia due to antineoplastic chemotherapy; T45.1X5A - Adverse effect of antineoplastic and immunosuppressive drugs, initial encounter Status: Acute Assessment and Plan: The patient had a blood transfusion last Wednesday due to symptomatic anemia and he is stable above 8.5 at this time. Monitor. (5) Gastroesophageal reflux disease: Code(s): K21.9 - Gastro-esophageal reflux disease without esophagitis Status: Acute Assessment and Plan: Continue pantoprazole. (6) Primary adenocarcinoma of esophagus with metastasis: Onset Date: 05/23/21 Code(s): C15.9 - Malignant neoplasm of esophagus, unspecified Status: Acute Assessment and Plan: Status post palliative radiation, now receiving palliative chemotherapy per Dr. Marx though he has not received treatment for several weeks due to ongoing anemia. (7) Hypertension: Code(s): I10 - Essential (primary) hypertension Status: Acute Assessment and Plan: Continue to hold antihypertensives, patient somewhat hypotensive (8) Paroxysmal supraventricular tachycardia: Code(s): I47.1 - Supraventricular tachycardia Status: Acute Assessment and Plan: In a sinus rhythm. Continue atenolol and diltiazem with parameters. Plan DVT prophylaxis with Lovenox GI prophylaxis not indicated Code status full code Subjective Date/time seen: 11/24/21 18:00 Interval history: Patient states he feels much better than when he came in. He would like to be able to get up and walk around more if possible. No overnight events noted. No chest pain or shortness of breath. No nausea, vomiting or diarrhea. No fevers or chills. Review of Systems Review of Systems: 12 point review of systems was assessed and was negative except as noted in the HPI Exam Narrative: General: No acute distress, alert and oriented per baseline HEENT: Atraumatic, normocephalic, mucous membranes moist CV: Regular rate and rhythm, S1, S2 Lungs: Poor air entry, crackles noted in right upper lobe, diminished at bases, no wheezes Abdomen: Soft, nontender, nondistended Extremities: Normal to inspection Skin: No rashes noted, no lesions or wounds seen Psych: Euthymic, normal affect Objective Data Vital Signs Vital Signs: Vital Signs - 24 hr 11/23/21 19:27 11/23/21 21:42 11/23/21 22:32 Temperature 97.7 F 100.2 F H Pulse Rate 77 77 Respiratory Rate 18 Blood Pressure 109/55 L Pulse Oximetry 94 Oxygen Delivery Oxygen Flow Rate 11/23/21 20:15 11/24/21 00:24 11/24/21 00:27 Temperature 100.2 F H Pulse Rate Respiratory Rate Blood Pressure 131/55 L Pulse Oximetry 94 Oxygen Delivery Nasal Cannula Oxygen Flow Rate 4 11/24/21 01:24 11/24/21 03:17 11/24/21 09:53 Temperature 100.1 F H 99.0 F 99.8 F H Pulse Rate 68 Respiratory Rate 18 Blood
[2021-11-24] MEDS: traZODone HCL 50 MG TABLET PO (21:12)
[2021-11-25] VITALS (11 sets, daily range): BP systolic 90–116; BP diastolic 49–55; PULSE 70–86; RESP 18–24; TEMP 36.5–38.3; O2SAT 83–100; BMI 23.2
[2021-11-25] MEDS: ACETAMINOPHEN 325 MG TABLET 650 MG PO (00:59)
[2021-11-25] MEDS: ALBUTEROL SULFATE (*SP) AEROSOL 1 PUFF 2 PUFF INHALATION ×2 (01:01→09:39)
--- NOTE | 2021-11-25 01:02 | PCRCNOTE ---
RT called to assess pt. RN informed RT that pt's 02 saturations were in the high 60's. RT administered PRN Albuterol inhaler and placed 15L NRB on pt. Pt's 02 saturations improved into the 90's.
--- NOTE | 2021-11-25 01:53 | PCRCNOTE ---
Per RN, due to pt being a mouth breather while sleeping, RT placed Venturi mask on pt at 12L 40%. Pt saturation at 96%.
[2021-11-25] MEDS: PROMETHAZINE/CODEINE (*CRX) 5 ML SYRUP PO ×3 (06:09→20:40)
--- NOTE | 2021-11-25 07:48 | PM.IMPN ---
Progress Note: A&P Assessment and Plan (1) Sepsis: Qualifiers: Sepsis acute organ dysfunction status: unspecified Sepsis type: sepsis due to unspecified organism Qualified Code(s): A41.9 - Sepsis, unspecified organism Code(s): A41.9 - Sepsis, unspecified organism Status: Acute Assessment and Plan: Hypotension appears resolved, hemodynamically stable today, cont vanc, cefepime and azithromycin for PNA, f/u mycoplasma, legionella, s pneumo ab, all pending. Blood and urine cx pending. 11/25: Due to increasing leuk and worsening clinical picture, cefepime d/c in favor of zosyn, azithromycin d/c in favor of levaquin, MRSA swab pending. Vanc trough was subtherapeutic, MRSA not suspected at this time, vanc d/c. Sputum cx showed normal hill. Blood cx NGTD. (2) Multifocal pneumonia: Code(s): J18.9 - Pneumonia, unspecified organism Status: Acute Assessment and Plan: Continue broad-spectrum antibiotics as above, follow-up blood and urine cultures (3) Hypoxemia: Code(s): R09.02 - Hypoxemia Status: Acute Assessment and Plan: Echocardiogram done several weeks ago showed normal systolic and diastolic function Continue supplemental oxygen, anticipate this to improve as his pneumonia resolved with antibiotic therapy (4) Anemia associated with chemotherapy: Code(s): D64.81 - Anemia due to antineoplastic chemotherapy; T45.1X5A - Adverse effect of antineoplastic and immunosuppressive drugs, initial encounter Status: Acute Assessment and Plan: The patient had a blood transfusion last Wednesday due to symptomatic anemia and he is stable above 8.5 at this time. Monitor. (5) Gastroesophageal reflux disease: Code(s): K21.9 - Gastro-esophageal reflux disease without esophagitis Status: Acute Assessment and Plan: Continue pantoprazole. (6) Primary adenocarcinoma of esophagus with metastasis: Onset Date: 05/23/21 Code(s): C15.9 - Malignant neoplasm of esophagus, unspecified Status: Acute Assessment and Plan: Status post palliative radiation, now receiving palliative chemotherapy per Dr. Marx though he has not received treatment for several weeks due to ongoing anemia. (7) Hypertension: Code(s): I10 - Essential (primary) hypertension Status: Acute Assessment and Plan: Continue to hold antihypertensives, patient somewhat hypotensive (8) Paroxysmal supraventricular tachycardia: Code(s): I47.1 - Supraventricular tachycardia Status: Acute Assessment and Plan: NSR, holding BP meds d/t hypotension, will restart when able Plan DVT prophylaxis with Lovenox GI prophylaxis not indicated Code status full code Subjective Date/time seen: 11/25/21 07:48 Interval history: Patient states he feels a little weaker, a little more short of breath today than yesterday. No overnight events noted. No chest pain or shortness of breath. No nausea, vomiting or diarrhea. No fevers or chills. Review of Systems Review of Systems: 12 point review of systems was assessed and was negative except as noted in the HPI Exam Narrative: General: No acute distress, alert and oriented per baseline HEENT: Atraumatic, normocephalic, mucous membranes moist CV: Regular rate and rhythm, S1, S2 Lungs: Moderate air entry, some crackles on the right Abdomen: Soft, nontender, nondistended Extremities: Normal to inspection Skin: No rashes noted, no lesions or wounds seen Psych: Euthymic, normal affect Objective Data Vital Signs Vital Signs: Vital Signs - 24 hr 11/24/21 09:53 11/24/21 10:53 11/24/21 12:15 Temperature 99.8 F H 98.1 F Pulse Rate Respiratory Rate Blood Pressure Pulse Oximetry 95 Oxygen Delivery High Flow Nasal Cannula Oxygen Flow Rate 5 Fraction of Inspired Oxygen 11/24/21 08:40 11/24/21 08:43 11/24/21 08:45 Temperature Pulse Ra
[2021-11-25] MEDS: GABAPENTIN 300 MG CAPSULE PO ×2 (08:41→17:20)
[2021-11-25] MEDS: ASPIRIN 81 MG ENTERIC TABLET PO (08:41)
[2021-11-25] MEDS: POTASSIUM CHLORIDE 20 MEQ TABLET.ER PO (08:41)
[2021-11-25] MEDS: PANTOPRAZOLE 40 MG TABLET PO (08:41)
[2021-11-25] MEDS: BENZONATATE 100 MG CAPSULE 200 MG PO ×3 (08:41→17:20)
[2021-11-25] MEDS: ENOXAPARIN 40 MG/0.4 ML SYRINGE SUB-Q (08:42)
[2021-11-25 08:43] LABS: Basophils Percent Auto 0.2 % (0.2-1.2); Eosinophils Absolute Auto 0.1 K/mm3 (0-0.3); Eosinophils Percent Auto 1.3 % (0-4.4); Hematocrit 28.8 % (42.0-52.0); Hemoglobin 8.8 g/dL (14.0-18.0); Immature Granulocyte Absolute 0.04 K/mm3 (0.00-0.031); Immature Granulocyte Percent A 0.4 % (0-0.5); Lymphocytes Absolute Auto 0.29 K/mm3 (0.9-3.2); Lymphocytes Percent Auto 2.6 % (18.3-44.2); Mean Corpuscular HGB Conc 30.6 g/dl (32-36); Mean Corpuscular Hemoglobin 28.2 pg (26-34); Mean Corpuscular Volume 92.3 fl (80-100); Mean Platelet Volume 9.7 fl (7.4-10.4); Monocytes Absolute Auto 0.9 K/mm3 (0.1-0.6); Monocytes Percent Auto 8.1 % (2.6-8.5); Neutrophils Absolute Auto 9.6 K/mm3 (1.3-6.7); Neutrophils Percent Auto 87.4 % (45.5-73.1); Platelet Count Result 204 k/mm3 (150-375); Red Blood Count 3.12 M/mm3 (4.6-6.20); Red Cell Distribution Width 15.1 % (11.5-14.5)
[2021-11-25 08:56] LABS: Alanine Aminotransferase 14 U/L (6-50); Albumin Level 3.4 g/dL (3.5-5.1); Alkaline Phosphatase 138 U/L (38-126); Anion Gap 7 mmol/L (8-16); Aspartate Amino Transferase 22 U/L (17-59); Bilirubin,Total 1.5 mg/dL (0.2-1.3); Blood Urea Nitrogen 10 mg/dL (9-20); Calcium 8.6 mg/dL (8.4-10.2); Carbon Dioxide 25 mmol/L (22-30); Chloride 103 mmol/L (98-107); Estimated CRCL calculation 99 ml/min; Estimated Glomerular Filt Rate > 60; Glucose 120 mg/dL (65-110); Potassium 3.9 mmol/L (3.4-5.0); Sodium 135 mmol/L (137-145)
[2021-11-25] MEDS: HYDROcodone/acetaminophen (*CRX) 7.5-325 MG TABLET 1 TAB PO ×2 (10:28→18:36)
[2021-11-25] MEDS: MAGNESIUM 13.5 MG TABLET (250 MG MAG GLUCONATE) PO ×2 (12:12→20:41)
[2021-11-25] MEDS: CENTRAL LINE FLUSH 10 ML IV PUSH ×2 (13:48→20:55)
[2021-11-25] MEDS: traZODone HCL 50 MG TABLET PO (20:41)
[2021-11-26] MEDS: PROMETHAZINE/CODEINE (*CRX) 5 ML SYRUP PO ×4 (00:33→20:14)
[2021-11-26] MEDS: HYDROcodone/acetaminophen (*CRX) 7.5-325 MG TABLET 1 TAB PO ×3 (03:37→20:13)
[2021-11-26] MEDS: PANTOPRAZOLE 40 MG TABLET PO (03:37)
[2021-11-26] MEDS: ALBUTEROL SULFATE (*SP) AEROSOL 1 PUFF 2 PUFF INHALATION (03:57)
[2021-11-26 04:23] VITALS: BP 112/60; PULSE 60; RESP 20; TEMP 37.7; O2SAT 92
[2021-11-26 05:33] LABS: Basophils Percent Auto 0.1 % (0.2-1.2); Eosinophils Absolute Auto 0.2 K/mm3 (0-0.3); Eosinophils Percent Auto 2.1 % (0-4.4); Hematocrit 24.4 % (42.0-52.0); Hemoglobin 7.3 g/dL (14.0-18.0); Immature Granulocyte Absolute 0.04 K/mm3 (0.00-0.031); Immature Granulocyte Percent A 0.5 % (0-0.5); Lymphocytes Absolute Auto 0.22 K/mm3 (0.9-3.2); Lymphocytes Percent Auto 2.6 % (18.3-44.2); Mean Corpuscular HGB Conc 29.9 g/dl (32-36); Mean Corpuscular Hemoglobin 27.5 pg (26-34); Mean Corpuscular Volume 92.1 fl (80-100); Mean Platelet Volume 9.7 fl (7.4-10.4); Monocytes Absolute Auto 0.7 K/mm3 (0.1-0.6); Monocytes Percent Auto 7.8 % (2.6-8.5); Neutrophils Absolute Auto 7.3 K/mm3 (1.3-6.7); Neutrophils Percent Auto 86.9 % (45.5-73.1); Platelet Count Result 181 k/mm3 (150-375); Red Blood Count 2.65 M/mm3 (4.6-6.20); Red Cell Distribution Width 15.3 % (11.5-14.5); White Blood Count 8.4 K/mm3 (4.5-10.0)
[2021-11-26 05:44] LABS: Alanine Aminotransferase 13 U/L (6-50); Albumin Level 2.7 g/dL (3.5-5.1); Alkaline Phosphatase 130 U/L (38-126); Anion Gap 8 mmol/L (8-16); Aspartate Amino Transferase 27 U/L (17-59); Bilirubin,Total 1.1 mg/dL (0.2-1.3); Blood Urea Nitrogen 11 mg/dL (9-20); Calcium 7.6 mg/dL (8.4-10.2); Carbon Dioxide 20 mmol/L (22-30); Chloride 106 mmol/L (98-107); Estimated CRCL calculation 114 ml/min; Estimated Glomerular Filt Rate > 60; Glucose 119 mg/dL (65-110); Potassium 3.6 mmol/L (3.4-5.0); Sodium 134 mmol/L (137-145)
[2021-11-26] MEDS: CENTRAL LINE FLUSH 10 ML IV PUSH ×3 (05:57→22:33)
[2021-11-26 08:00] VITALS: O2SAT 95
[2021-11-26 08:21] VITALS: O2SAT 96
[2021-11-26] MEDS: POTASSIUM CHLORIDE 20 MEQ TABLET.ER PO (08:47)
[2021-11-26] MEDS: BENZONATATE 100 MG CAPSULE 200 MG PO ×3 (08:47→17:57)
[2021-11-26] MEDS: GABAPENTIN 300 MG CAPSULE PO ×2 (08:47→17:58)
[2021-11-26] MEDS: ASPIRIN 81 MG ENTERIC TABLET PO (08:47)
[2021-11-26] MEDS: ENOXAPARIN 40 MG/0.4 ML SYRINGE SUB-Q (08:48)
[2021-11-26] MEDS: MAGNESIUM 13.5 MG TABLET (250 MG MAG GLUCONATE) PO ×2 (12:45→20:05)
[2021-11-26 14:11] VITALS: BP 123/60; PULSE 96; RESP 20; TEMP 38.6; O2SAT 90
--- NOTE | 2021-11-26 14:37 | PM.IMPN ---
Progress Note: A&P Assessment and Plan (1) Sepsis: Qualifiers: Sepsis acute organ dysfunction status: unspecified Sepsis type: sepsis due to unspecified organism Qualified Code(s): A41.9 - Sepsis, unspecified organism Code(s): A41.9 - Sepsis, unspecified organism Status: Acute (2) Multifocal pneumonia: Code(s): J18.9 - Pneumonia, unspecified organism Status: Acute (3) Hypoxemia: Code(s): R09.02 - Hypoxemia Status: Acute (4) Anemia associated with chemotherapy: Code(s): D64.81 - Anemia due to antineoplastic chemotherapy; T45.1X5A - Adverse effect of antineoplastic and immunosuppressive drugs, initial encounter Status: Acute (5) Gastroesophageal reflux disease: Code(s): K21.9 - Gastro-esophageal reflux disease without esophagitis Status: Acute (6) Primary adenocarcinoma of esophagus with metastasis: Onset Date: 05/23/21 Code(s): C15.9 - Malignant neoplasm of esophagus, unspecified Status: Acute (7) Hypertension: Code(s): I10 - Essential (primary) hypertension Status: Acute (8) Paroxysmal supraventricular tachycardia: Code(s): I47.1 - Supraventricular tachycardia Status: Acute Plan 11/25/21 Hypotension appears resolved, hemodynamically stable today, cont vanc, cefepime and azithromycin for PNA, f/u mycoplasma, legionella, s pneumo ab, all pending. Blood and urine cx pending. 11/25: Due to increasing leuk and worsening clinical picture, cefepime d/c in favor of zosyn, azithromycin d/c in favor of levaquin, MRSA swab pending. Vanc trough was subtherapeutic, MRSA not suspected at this time, vanc d/c. Sputum cx showed normal hill. Blood cx NGTD. Continue broad-spectrum antibiotics as above, follow-up blood and urine cultures Echocardiogram done several weeks ago showed normal systolic and diastolic function Continue supplemental oxygen, anticipate this to improve as his pneumonia resolved with antibiotic therapy The patient had a blood transfusion last Wednesday due to symptomatic anemia and he is stable above 8.5 at this time. Monitor. Continue pantoprazole. Status post palliative radiation, now receiving palliative chemotherapy per Dr. Marx though he has not received treatment for several weeks due to ongoing anemia. Continue to hold antihypertensives, patient somewhat hypotensive NSR, holding BP meds d/t hypotension, will restart when able 11/26/21 pt still febrile abx changed without improvement remains on Venti will consult pulm for expert consultation cont current care Tylenol for fever Subjective Date/time seen: 11/26/21 14:37 pt doing ok but still doesn't feel better, remains febrile since admission I inform him of need for pulm consult cough clear sputum abd pain w coughing Review of Systems Review of Systems: All systems reviewed & are unremarkable except as noted in HPI and below Exam Narrative: General: No acute distress, alert and oriented per baseline HEENT: Atraumatic, normocephalic, mucous membranes moist CV: Regular rate and rhythm, S1, S2 Lungs: Moderate air entry, some crackles on the right Abdomen: Soft, nontender, nondistended Extremities: Normal to inspection Skin: No rashes noted, no lesions or wounds seen Psych: Euthymic, normal affect Objective Data Vital Signs Vital Signs: Vital Signs - 24 hr 11/25/21 19:27 11/25/21 20:33 11/25/21 20:00 Temperature 98.8 F Pulse Rate 86 Respiratory Rate 18 Blood Pressure 90/55 L Pulse Oximetry 91 95 95 Oxygen Delivery Venturi Mask Venturi Mask Oxygen Flow Rate 15 15 Fraction of Inspired Oxygen 50 11/26/21 04:23 11/26/21 08:21 11/26/21 08:00 Temperature 99.9 F H Pulse Rate 60 Respiratory Rate 20 Blood Pressure 112/60 Pulse Oximetry 92 96 95 Oxygen Delivery Venturi Mask Venturi Mask Oxygen Flow Rate 15 15 Fraction of Inspired Oxygen 50 11/26/21 14:11 Temperature 101.5 F H Pulse Ra
--- NOTE | 2021-11-26 16:09 | PM.CNPUL ---
Assessment and Plan Assessment and plan (1) Acute respiratory failure with hypoxia: Code(s): J96.01 - Acute respiratory failure with hypoxia Status: Acute Assessment and Plan: this 66-year-old man presented with subacute illness that started approximately 2 weeks ago and is characterized by night sweats, dry cough, shortness of breath and low-grade fever. Patient has been on antibiotic for possible pneumonia with no improvement. He continues to have a dry cough shortness of breath and low-grade temperature. The patient's symptoms are not quite typical for acute pneumonia. The chest CT shows characteristic pattern bilaterally, with diffuse ground-glass opacities and some interlobular septal thickening. The patient's clinical picture in conjunction with the chest CT findings suggest possible chemotherapy-induced pneumonitis. Pneumocystis Jiroveci is less likely. The patient has received the PD-L1 inhibitor pembrolizumab and also trastuzumab which both can cause interstitial lung disease, especially pembrolizumab. Plan: continue with current antibiotics for now. Will schedule bronchoscopy with BAL within the next couple of days. (2) Pneumonitis: Code(s): J18.9 - Pneumonia, unspecified organism Status: Acute (3) History of pacemaker: Code(s): Z95.0 - Presence of cardiac pacemaker Status: Acute (4) Anemia associated with chemotherapy: Code(s): D64.81 - Anemia due to antineoplastic chemotherapy; T45.1X5A - Adverse effect of antineoplastic and immunosuppressive drugs, initial encounter Status: Acute (5) Primary adenocarcinoma of esophagus with metastasis: Onset Date: 05/23/21 Code(s): C15.9 - Malignant neoplasm of esophagus, unspecified Status: Acute History of Present Illness History of Present Illness Consult date: 11/26/21 Chief complaint: acute respiratory failure with hypoxia,multifocal Narrative: This 66-year-old man presented with shortness of breath, fever, and cough. The patient has history of esophageal carcinoma and has been treated with radiation therapy and currently has been on chemotherapy that started back in July. The patient's last chemotherapy was November 04. The chemotherapy regimen includes among other medications trastuzumab and pembrolizumab. Since July of this year the patient has received at least 3-4 doses of pembrolizumab and at trastuzumab. Patient was in his usual state of health until approximately 2 weeks ago when he noticed some swelling in his lower extremities, and started having sweats at night and shortness of breath. He also complained of fatigue and felt feverish. Since then the patient's shortness of breath has progressively increased. Around the same the time he also started having cough which was mostly dry. He had no chills hemoptysis chest pain or wheezing. on evaluation in the emergency room the chest CT showed bilateral infiltrates and small pleural effusions. The patient has been treated with antibiotics for possible pneumonia. He continues to have shortness of breath and dry cough. He also runs a low-grade temperature. His COVID test has been negative both at home when tested prior to coming to the hospital and also during this hospitalization. Review of Systems Review of Systems: Patient has poor appetite. He he reports some weight loss. He has no orthopnea. He has runny nose clear discharge. He has no dysphagia. He has had some constipation. He has had some urinary issues in the sense that he tries hard to initiate urinary stream. The remainder of the 12 point systems review is negative. [facility] Past Medical History Medical History (Updated 11/26/21 @ 16:20 by Gurmeet Cordoba MD) Anemia associated with chemotherapy Gastroesophageal reflux disease Hyperlipidemia Hypertension Paroxysmal supraventricular tachycardia Primary adenocarcinoma of esophagus with metastasis (05/23/21) Primary adenocarcinom
[2021-11-26 19:40] VITALS: PULSE 96; RESP 20; O2SAT 90
[2021-11-26] MEDS: traZODone HCL 50 MG TABLET PO (20:05)
[2021-11-26 20:21] VITALS: BP 104/53; PULSE 83; RESP 18; TEMP 36.8; O2SAT 92
[2021-11-27] VITALS (26 sets, daily range): BP systolic 92–128; BP diastolic 37–68; PULSE 64–106; RESP 21–44; TEMP 36.5–39.1; O2SAT 90–100
[2021-11-27 03:39] LABS: Pneumococcal Antigen Urine Not Detected (Not Detected)
[2021-11-27] MEDS: HYDROcodone/acetaminophen (*CRX) 7.5-325 MG TABLET 1 TAB PO (06:00)
[2021-11-27] MEDS: ACETAMINOPHEN 325 MG TABLET 650 MG PO (06:01)
[2021-11-27] MEDS: PROMETHAZINE/CODEINE (*CRX) 5 ML SYRUP PO (06:02)
--- NOTE | 2021-11-27 06:18 | PC.NURSE ---
labs collected via r chest port, sent to lab for analysis
[2021-11-27 06:21] LABS: Basophils Percent Auto 0.1 % (0.2-1.2); Eosinophils Absolute Auto 0.3 K/mm3 (0-0.3); Eosinophils Percent Auto 3.3 % (0-4.4); Hematocrit 27.2 % (42.0-52.0); Hemoglobin 8.2 g/dL (14.0-18.0); Immature Granulocyte Absolute 0.05 K/mm3 (0.00-0.031); Immature Granulocyte Percent A 0.5 % (0-0.5); Lymphocytes Absolute Auto 0.35 K/mm3 (0.9-3.2); Lymphocytes Percent Auto 3.4 % (18.3-44.2); Mean Corpuscular HGB Conc 30.1 g/dl (32-36); Mean Corpuscular Hemoglobin 27.5 pg (26-34); Mean Corpuscular Volume 91.3 fl (80-100); Mean Platelet Volume 10.1 fl (7.4-10.4); Monocytes Absolute Auto 0.7 K/mm3 (0.1-0.6); Monocytes Percent Auto 6.9 % (2.6-8.5); Neutrophils Absolute Auto 8.9 K/mm3 (1.3-6.7); Neutrophils Percent Auto 85.8 % (45.5-73.1); Platelet Count Result 220 k/mm3 (150-375); Red Blood Count 2.98 M/mm3 (4.6-6.20); Red Cell Distribution Width 15.6 % (11.5-14.5); White Blood Count 10.4 K/mm3 (4.5-10.0)
--- NOTE | 2021-11-27 06:23 | PC.NURSE ---
called MD Garibay to updated currently on non-breather, placed by respiratory r/t bronchospasms with coughing, tylenol given for fever 102.3, along with norco and promethazine/codiene cough medication. currently 98% on non-breather.
--- NOTE | 2021-11-27 06:29 | PC.NURSE ---
called respiratory therapist, respiratory stated would like to leave pt on non-breather at this time until spasms calm down.
[2021-11-27 06:31] LABS: INR 1.4; Prothrombin Time 16.4 Seconds (11.1-14.7)
[2021-11-27 06:34] LABS: Alanine Aminotransferase 21 U/L (6-50); Albumin Level 3.3 g/dL (3.5-5.1); Alkaline Phosphatase 164 U/L (38-126); Anion Gap 12 mmol/L (8-16); Aspartate Amino Transferase 36 U/L (17-59); Bilirubin,Total 1.1 mg/dL (0.2-1.3); Blood Urea Nitrogen 10 mg/dL (9-20); Calcium 8.4 mg/dL (8.4-10.2); Carbon Dioxide 25 mmol/L (22-30); Chloride 99 mmol/L (98-107); Estimated CRCL calculation 114 ml/min; Estimated Glomerular Filt Rate > 60; Glucose 135 mg/dL (65-110); Potassium 4.1 mmol/L (3.4-5.0); Sodium 136 mmol/L (137-145)
--- NOTE | 2021-11-27 07:06 | PC.NURSE ---
placed back on venti mask with 15 L NC
--- NOTE | 2021-11-27 07:07 | PC.NURSE ---
called gi lab to and reported pt condition to Elsie BAUGH, pt on 15 L NC and had temp this morning 102.3 tx with tylenol. Consent still needs signed.
--- NOTE | 2021-11-27 07:10 | PC.NURSE ---
Elsie BAUGH questioning if pt will have procedure today r/t condition, if pt goes for procedure possible around 1030-11am this morning.
--- NOTE | 2021-11-27 07:35 | PM.IMPN ---
Progress Note: A&P Assessment and Plan (1) Sepsis: Qualifiers: Sepsis acute organ dysfunction status: unspecified Sepsis type: sepsis due to unspecified organism Qualified Code(s): A41.9 - Sepsis, unspecified organism Code(s): A41.9 - Sepsis, unspecified organism Status: Acute (2) Multifocal pneumonia: Code(s): J18.9 - Pneumonia, unspecified organism Status: Acute (3) Hypoxemia: Code(s): R09.02 - Hypoxemia Status: Acute (4) Anemia associated with chemotherapy: Code(s): D64.81 - Anemia due to antineoplastic chemotherapy; T45.1X5A - Adverse effect of antineoplastic and immunosuppressive drugs, initial encounter Status: Acute (5) Gastroesophageal reflux disease: Code(s): K21.9 - Gastro-esophageal reflux disease without esophagitis Status: Acute (6) Primary adenocarcinoma of esophagus with metastasis: Onset Date: 05/23/21 Code(s): C15.9 - Malignant neoplasm of esophagus, unspecified Status: Acute (7) Hypertension: Code(s): I10 - Essential (primary) hypertension Status: Acute (8) Paroxysmal supraventricular tachycardia: Code(s): I47.1 - Supraventricular tachycardia Status: Acute Plan 11/25/21 Hypotension appears resolved, hemodynamically stable today, cont vanc, cefepime and azithromycin for PNA, f/u mycoplasma, legionella, s pneumo ab, all pending. Blood and urine cx pending. 11/25: Due to increasing leuk and worsening clinical picture, cefepime d/c in favor of zosyn, azithromycin d/c in favor of levaquin, MRSA swab pending. Vanc trough was subtherapeutic, MRSA not suspected at this time, vanc d/c. Sputum cx showed normal hill. Blood cx NGTD. Continue broad-spectrum antibiotics as above, follow-up blood and urine cultures Echocardiogram done several weeks ago showed normal systolic and diastolic function Continue supplemental oxygen, anticipate this to improve as his pneumonia resolved with antibiotic therapy The patient had a blood transfusion last Wednesday due to symptomatic anemia and he is stable above 8.5 at this time. Monitor. Continue pantoprazole. Status post palliative radiation, now receiving palliative chemotherapy per Dr. Marx though he has not received treatment for several weeks due to ongoing anemia. Continue to hold antihypertensives, patient somewhat hypotensive NSR, holding BP meds d/t hypotension, will restart when able 11/26/21 pt still febrile abx changed without improvement remains on Venti will consult pulm for expert consultation cont current care Tylenol for fever 11/27/21 pt for bronch today suspected chemo therapy related pneumonitis cont venti mask (overnight pt briefly placed on NRB mask) cont current care pulm recs appreciated Subjective Date/time seen: 11/27/21 07:35 pt seen before Bronch, we discuss that he has remained febrile despite appropriate care for PNA and that Pulm was consulted to evaluate current management. This includes bronchoscopy, pt and his acknowledge this would not be done if he was improving w current care. ROS + x SOB and dyspnea wspeaking Review of Systems Review of Systems: All systems reviewed & are unremarkable except as noted in HPI and below Exam Narrative: General: No acute distress, alert and oriented x3 HEENT: Atraumatic, normocephalic, mucous membranes moist CV: increased rate and rhythm, S1, S2 Lungs: Moderate air entry, some crackles on the right Abdomen: Soft, nontender, nondistended Extremities: Normal to inspection Skin: No rashes noted, no lesions or wounds seen Psych: mood and affect congruent anxoius Objective Data Vital Signs Vital Signs: Vital Signs - 24 hr 11/26/21 08:21 11/26/21 08:00 11/26/21 14:11 Temperature 101.5 F H Pulse Rate 96 Respiratory Rate 20 Blood Pressure 123/60 Pulse Oximetry 96 95 90 Oxygen Delivery Venturi Mask Venturi Mask Oxygen Flow Rate 15 15 Fraction of Inspi
--- NOTE | 2021-11-27 07:50 | SUR.PREOP ---
Spoke with Harper. States he is okay with proceeding despite patient fever. Anesthesia notified.
[2021-11-27] MEDS: ALBUTEROL SULFATE (*SP) AEROSOL 1 PUFF 2 PUFF INHALATION (07:52)
[2021-11-27] MEDS: LACTATED RINGERS 1,000 ML 150 ML IV CONT (09:50)
--- NOTE | 2021-11-27 10:11 | WPDANESEPPF ---
Anes - Initial Pre Proc Eval Procedure: Operation Date: 11/27/21 10:30 Proposed Procedures p Flexible Bronchoscopy Without Fluoro - Gurmeet James Cordoba MD Date/Time: 11/27/21 10:11 Surgeon: Blayne Willams MD Pre Op Diagnosis: acute respiratory failure with hypoxia,multifocal Patient Data Age: 66 Gender: M Height: 1.83 m Weight: 77.8 kg Last Vital Signs Temp 97.7 F 11/27/21 09:45 Pulse 75 11/27/21 09:45 Resp 22 H 11/27/21 09:45 BP 96/37 L 11/27/21 09:45 Pulse Ox 90 11/27/21 09:45 O2 Del Method Venturi Mask 11/27/21 09:45 O2 Flow Rate 15 11/27/21 09:45 FiO2 50 11/27/21 08:05 Allergies Allergy/AdvReac Type Severity Reaction Status Date / Time cyclobenzaprine AdvReac Mild Confusion Verified 11/23/21 09:59 [facility] Home Medications Medication Instructions Recorded Confirmed Type aspirin 81 mg tablet 81 mg PO DAILY 06/04/21 11/27/21 History magnesium 250 mg tablet 250 mg PO BID 06/04/21 11/27/21 History pantoprazole 40 mg tablet,delayed 40 mg PO HS PRN Heartburn 06/04/21 11/27/21 History release atenolol 100 mg tablet 50 mg BID 11/23/21 11/27/21 History diltiazem HCl 300 mg 300 mg PO DAILY 11/23/21 11/27/21 History capsule,extended release 24 hr gabapentin 300 mg capsule 300 mg PO BID 11/23/21 11/27/21 History hydrocodone 7.5 mg-acetaminophen 7.5 - 325 tablet PO TID 11/23/21 11/27/21 History 325 mg tablet ondansetron 8 mg disintegrating 4 mg PO Q8H PRN nausea 11/23/21 11/27/21 History tablet potassium chloride 20 mEq 20 meq PO DAILY 11/23/21 11/27/21 History tablet,extended release(part/cryst) trazodone 50 mg tablet 50 mg PO HS 11/23/21 11/27/21 History Laboratory Tests 11/23/21 11/27/21 11/27/21 14:22 06:14 06:14 WBC 10.4 K/mm3 H K/mm3 (4.5-10.0) RBC 2.98 M/mm3 L M/mm3 (4.6-6.20) Hgb 8.2 g/dL L g/dL (14.0-18.0) Hct 27.2 % L % (42.0-52.0) MCV 91.3 fl fl (80-100) MCH 27.5 pg pg (26-34) MCHC 30.1 g/dl L g/dl (32-36) RDW 15.6 % H % (11.5-14.5) Plt Count 220 k/mm3 k/mm3 (150-375) MPV 10.1 fl fl (7.4-10.4) Immature Gran % (Auto) 0.5 % % (0-0.5) Neut % (Auto) 85.8 % H % (45.5-73.1) Lymph % (Auto) 3.4 % L % (18.3-44.2) [place] % (Auto) 6.9 % % (2.6-8.5) Eos % (Auto) 3.3 % % (0-4.4) Baso % (Auto) 0.1 % L % (0.2-1.2) Lymph # (Auto) 0.35 K/mm3 L K/mm3 (0.9-3.2) [place] # (Auto) 0.7 K/mm3 H K/mm3 (0.1-0.6) Eos # (Auto) 0.3 K/mm3 K/mm3 (0-0.3) Baso # (Auto) 0.0 K/mm3 K/mm3 (0.0-0.1) Abs Immat Gran (auto) 0.05 K/mm3 H K/mm3 (0.00-0.031) Absolute Neuts (auto) 8.9 K/mm3 H K/mm3 (1.3-6.7) Absolute Nucleated RBC 0.0 K/mm3 K/mm3 (0.0-0.012) Nucleated RBC % 0.0 % % (0.0-0.2) PT INR Sodium 136 mmol/L L mmol/L (137-145) Potassium 4.1 mmol/L mmol/L (3.4-5.0) Chloride 99 mmol/L mmol/L (98-107) Carbon Dioxide 25 mmol/L mmol/L (22-30) Anion Gap 12 mmol/L mmol/L (8-16) BUN 10 mg/dL mg/dL (9-20) Creatinine 0.60 mg/dL L mg/dL (0.7-1.3) Estim Creat Clear Calc 114 ml/min ml/min Estimated GFR > 60 (59 - ) Glucose 135 mg/dL H mg/dL (65-110) Calcium 8.4 mg/dL mg/dL (8.4-10.2) Total Bilirubin 1.1 mg/dL mg/dL (0.2-1.3) AST 36 U/L U/L (17-59) ALT 21 U/L U/L (6-50) Alkaline Phosphatase 164 U/L H U/L (38-126) Total Protein 6.0 g/dL L g/dL (6.3-8.2) Albumin 3.3 g/dL L g/dL (3.5-5.1) Urine Pneumococcal Ag Not detected (Not Detected) 11/27/21 06:14 WBC RBC Hgb Hct MCV MCH MCHC RDW Plt Count MPV
--- NOTE | 2021-11-27 10:30 | PCPTNOTE ---
The patient treatment was not able to be completed on 11/27/2021 due to patient having bronchoscopy this date. Will plan to continue treatment per plan of care.
[2021-11-27] MEDS: SODIUM CHLORIDE 0.9% IV 500 ML BAG 170 ML IRRIGATION (11:11)
[2021-11-27] MEDS: LIDOCAINE HCL 2% LOCAL INJ 20 ML VIAL 8 ML INFILTRATE (11:12)
--- NOTE | 2021-11-27 11:15 | SUR.OPER ---
REGULAR SIZE OF DISPOSABLE BRONCHOSCOPE USED FOR PROCEDURE. [employer] ([employer]) AT BEDSIDE.
[2021-11-27 12:43] LABS: Appearance Bronchial Fluid Cloudy; Color Bronchial Fluid Red; Source Bronchial Fluid Bronchial Lavage
[2021-11-27 12:44] LABS: Lymphocytes Bronchial Fluid 3 %; Macrophages Bronchial Fluid 3; Monocytes Bronchial Fluid 4 %; Neutrophils Bronchial Fluid 70 %; Other Cells Bronchial Fluid 20 %
--- NOTE | 2021-11-27 12:57 | PCOTNOTE ---
Attempted to see patient this pm, however patient was transferred to IMU on continuous bi-pap per RN. Pt not seen for this reason.
[2021-11-27 13:05] LABS: Eosinophils Bronchial Fluid 0 %
--- NOTE | 2021-11-27 13:06 | SUR.PHASEII ---
PT TRANSFERRED TO RM 207 WITH RESPIRATORY AT SIDE BI PAP INTACT, REPORT GIVEN TO JANET BAUGH
--- NOTE | 2021-11-27 13:13 | PC.NURSE ---
This patient, Jordi Damon Segura Sr., was received from 243/Endoscopy on 11/27/21 at 1250. Patient/family oriented to unit policies and routines
[2021-11-27 13:27] LABS: Base Excess ABG -3.6 mEq/l (+/-2.0); HCO3 ABG 21.8 mEq/l (22.0-26.0); PCO2 ABG 40.4 mmHg (35.0-45.0); PO2 ABG 53.7 mmHg (80.0-100.0); pH ABG 7.349 (7.350-7.450)
[2021-11-27 13:28] LABS: Oxygen Saturation ABG 86.4 % (95.0-100.0); Total Hemoglobin 9.4 g/dL (12.0-18.0)
[2021-11-27 13:29] LABS: Alveolar/Arterial O2 Gradient 257.4 mmHg; Oxygen Content ABG 11.2 %vol (16.0-22.0)
[2021-11-27 13:30] LABS: Device BIPAP; Fractional Inspired Oxygen 50 %; Modified Allen's Test Pass; Oxyhemoglobin 84.2 % THb (90.0-100.0); PO2 FiO2 Ratio Arterial Blood 1.07 %; Site Drawn LEFT RADIAL
[2021-11-27 13:31] LABS: Expiratory Pressure 8 cmH2O; Inspiratory Pressure 12 cmH2O
[2021-11-27] MEDS: methylPREDNISolone SOD SUCC 125 MG VIAL 80 MG IV PUSH (13:36)
[2021-11-27] MEDS: MORPHINE SULFATE (*CRX) 4 MG/ML INJ IV PUSH ×4 (13:36→21:42)
--- NOTE | 2021-11-27 13:43 | WPDCNINT ---
Assessment and Plan Assessment and plan (1) Acute respiratory failure with hypoxia: Code(s): J96.01 - Acute respiratory failure with hypoxia Status: Acute Assessment and Plan: Acute hypoxic respiratory failure secondary to pneumonitis in an immunocompromised patient who is on chemotherapy and has received radiation therapy early this year CTA chest showed - Diffuse lung disease, consistent with moderate pulmonary edema without or with superimposed pneumonia. Chest x-ray shows diffuse bilateral infiltrate Differential includes radiation induced pneumonitis versus chemotherapy-induced pneumonitis versus infectious etiology versus ARDS Although patient is febrile, his WBC is normal. Procalcitonin level was low suggesting against infection Blood sputum and BAL cultures are pending Urine pneumococcal antigen was negative COVID PCR was negative Urine Legionella, mycoplasma IgM, pneumocystis antigen, CMV PCR pending Bronchoscopy done today showed normal-appearing bronchial system no rhythm, masses or secretion. BAL was performed and is pending Postprocedure patient became more hypoxic and in respiratory distress. Initiated BiPAP 12/8 and 60% FiO2 Transferred to ICU for closer monitoring. IV morphine given for pain and IV Precedex infusion started for anxiety and agitation Continue broad-spectrum antibiotics in the form of vancomycin Levaquin Zosyn and Bactrim Pulmonary is following Patient received a dose of Solu-Medrol. Will discuss with Pulmonary regarding continuation of Solu-Medrol May need intubation and mechanical ventilation Check echocardiogram Will give a dose of Lasix Continue bronchodilators (2) Pneumonitis: Code(s): J18.9 - Pneumonia, unspecified organism Status: Acute (3) Gastroesophageal reflux disease: Code(s): K21.9 - Gastro-esophageal reflux disease without esophagitis Status: Acute Assessment and Plan: IV PPI (4) Primary adenocarcinoma of esophagus with metastasis: Onset Date: 05/23/21 Code(s): C15.9 - Malignant neoplasm of esophagus, unspecified Status: Acute (5) Anxiety: Code(s): F41.9 - Anxiety disorder, unspecified Status: Acute Assessment and Plan: With start Precedex infusion to allow safe noninvasive positive pressure ventilation (6) Back pain: Code(s): M54.9 - Dorsalgia, unspecified Status: Acute Assessment and Plan: P.r.n. morphine (7) Anemia associated with chemotherapy: Code(s): D64.81 - Anemia due to antineoplastic chemotherapy; T45.1X5A - Adverse effect of antineoplastic and immunosuppressive drugs, initial encounter Status: Acute Assessment and Plan: Patient has been anemic chronically and has been requiring blood transfusion as an outpatient. Hold Lovenox Continue to monitor hemoglobin Continue PPI Plan DVT prophylaxis -SCDs, not on Lovenox due to symptomatic anemia. Start if hemoglobin remains stable Stress ulcer prophylaxis -PPI Nutrition -NPO Code Status -patient wishes to be Full Code at this time but does not want to stay on a ventilator for a long period of time Case discussed with Pulmonary Total Critical Care Time - 35 minutes Due to a high probability of clinically significant, life threatening deterioration, the patient required my highest level of preparedness to intervene emergently and I personally spent this critical care time directly and personally managing the patient. This critical care time included obtaining a history; examining the patient; pulse oximetry; ordering and review of studies; arranging urgent treatment with development of a management plan; evaluation of patient's response to treatment; frequent reassessment; and discussions with other providers. It was exclusive of separately billable procedures and treating other patients and teaching time. Please see Assessment and Plan section and the rest of the note for further information on patient assessmen
[2021-11-27] MEDS: dexmedeTOMIDine 400 MCG/100 ML 400 MCG/100 ML BAG IV CONT (13:53)
--- NOTE | 2021-11-27 13:53 | PC.NURSE ---
This patient, Jordi Segura Sr., was transferred to ICU-2 on 11/27/21 at 1340. Personal belongings sent with patient. Report given to Randi BAUGH. Appropriate documentation sent with patient.
--- NOTE | 2021-11-27 13:55 | PC.NURSE ---
This patient, Jordi Segura Sr., was received from [207] on 11/27/21 at 1355. Patient/family oriented to unit policies and routines bedside report received from Yudi Goldstein RN. pt A&O x4 on bipap;
[2021-11-27 13:59] LABS: Mycoplasma IgM Antibody Titer 78 U/mL (<770)
[2021-11-27] MEDS: FUROSEMIDE INJ 40 MG/4 ML VIAL 20 MG IV PUSH (15:16)
[2021-11-27] MEDS: CENTRAL LINE FLUSH 10 ML IV PUSH ×2 (15:17→21:40)
[2021-11-28] VITALS (23 sets, daily range): BP systolic 96–144; BP diastolic 46–70; PULSE 60–77; RESP 17–30; TEMP 36.3–36.6; O2SAT 91–98
[2021-11-28] MEDS: MORPHINE SULFATE (*CRX) 4 MG/ML INJ IV PUSH ×6 (00:25→22:23)
[2021-11-28 05:07] LABS: Alveolar/Arterial O2 Gradient 244.7 mmHg; Base Excess ABG -0.7 mEq/l (+/-2.0); Carboxyhemoglobin 0.3 % THb (0-2.0); Device NON-INVASIVE VENT; Fractional Inspired Oxygen 50 %; HCO3 ABG 23.7 mEq/l (22.0-26.0); Methemoglobin ABG 0.5 %THb (0-1.5); Modified Allen's Test Unable to perform; Oxyhemoglobin 92.3 % THb (90.0-100.0); PCO2 ABG 38.3 mmHg (35.0-45.0); PO2 ABG 68.7 mmHg (80.0-100.0); PO2 FiO2 Ratio Arterial Blood 1.37 %; Reduced Hemoglobin 6.9 %THb (0-5.0); Site Drawn RIGHT RADIAL; Total Hemoglobin 9.2 g/dL (12.0-18.0)
[2021-11-28 05:08] LABS: Non-Invasive Expiratory Pressure 8 CMH2O; Non-Invasive Inspiratory Pressure 12 CMH2O; Non-Invasive Vent Rate 14 /MIN
[2021-11-28 05:12] LABS: Hemoglobin 8.1 g/dL (14.0-18.0); Immature Granulocyte Absolute 0.01 K/mm3 (0.00-0.031); Immature Granulocyte Percent A 0.2 % (0-0.5); Lymphocytes Absolute Auto 0.13 K/mm3 (0.9-3.2); Lymphocytes Percent Auto 2.3 % (18.3-44.2); Mean Corpuscular HGB Conc 31.2 g/dl (32-36); Mean Platelet Volume 10.5 fl (7.4-10.4); Monocytes Absolute Auto 0.2 K/mm3 (0.1-0.6); Neutrophils Absolute Auto 5.2 K/mm3 (1.3-6.7); Neutrophils Percent Auto 93.5 % (45.5-73.1); Platelet Count Result 169 k/mm3 (150-375); Red Blood Count 2.89 M/mm3 (4.6-6.20); Red Cell Distribution Width 15.3 % (11.5-14.5); White Blood Count 5.6 K/mm3 (4.5-10.0)
[2021-11-28 05:24] LABS: Alanine Aminotransferase 20 U/L (6-50); Albumin Level 3.2 g/dL (3.5-5.1); Alkaline Phosphatase 134 U/L (38-126); Anion Gap 12 mmol/L (8-16); Aspartate Amino Transferase 26 U/L (17-59); Bilirubin,Total 0.9 mg/dL (0.2-1.3); Blood Urea Nitrogen 12 mg/dL (9-20); Calcium 8.7 mg/dL (8.4-10.2); Carbon Dioxide 29 mmol/L (22-30); Chloride 98 mmol/L (98-107); Estimated CRCL calculation 114 ml/min; Estimated Glomerular Filt Rate > 60; Glucose 195 mg/dL (65-110); Magnesium 2.1 mg/dL (1.6-2.3); Potassium 4.5 mmol/L (3.4-5.0); Sodium 139 mmol/L (137-145)
[2021-11-28] MEDS: dexmedeTOMIDine 400 MCG/100 ML 400 MCG/100 ML BAG 6.59 MCG IV CONT (05:43)
[2021-11-28] MEDS: CENTRAL LINE FLUSH 10 ML IV PUSH ×3 (05:44→22:27)
[2021-11-28 07:25] LABS: Legionella pneumophila Ag Ur Not Detected (Not Detected)
[2021-11-28] MEDS: BENZONATATE 100 MG CAPSULE 200 MG PO ×3 (08:04→16:46)
[2021-11-28] MEDS: GABAPENTIN 300 MG CAPSULE PO ×2 (08:07→16:46)
[2021-11-28] MEDS: PANTOPRAZOLE SODIUM IV 40 MG VIAL IV PUSH (08:08)
[2021-11-28] MEDS: methylPREDNISolone SOD SUCC 125 MG VIAL 80 MG IV PUSH (08:08)
--- NOTE | 2021-11-28 08:22 | WPDINTPN ---
Progress Note: A&P Assessment and Plan (1) Acute respiratory failure with hypoxia: Code(s): J96.01 - Acute respiratory failure with hypoxia Status: Acute Assessment and Plan: Acute hypoxic respiratory failure secondary to pneumonitis in an immunocompromised patient who is on chemotherapy and has received radiation therapy early this year CTA chest showed - Diffuse lung disease, consistent with moderate pulmonary edema without or with superimposed pneumonia. Chest x-ray today shows persistent diffuse bilateral infiltrate Differential includes radiation induced pneumonitis versus chemotherapy-induced pneumonitis versus infectious etiology versus ARDS Although patient is febrile, his WBC is normal. Procalcitonin level was low suggesting against infection Blood sputum and BAL cultures are pending Urine pneumococcal and Legionella antigen was negative COVID PCR was negative Mycoplasma IgM is low Pneumocystis antigen, CMV PCR pending Bronchoscopy done 11/27 showed normal-appearing bronchial system no rhythm, masses or secretion. BAL was performed and is pending Postprocedure patient became more hypoxic and in respiratory distress. And was started BiPAP 02/26 and 60% FiO2 and transferred to ICU Patient appears to be clinically better though still hypoxic. Will transition to Airvo and see if he tolerates Continue IV morphine given for pain and IV Precedex infusion started for anxiety and agitation Discontinue vancomycin and Zosyn Continue Levaquin and Bactrim for now Pulmonary is following and case discussed with Pulmonary Continue Solu-Medrol He May still need intubation and mechanical ventilation Echocardiogram reviewed He was given a dose of Lasix 11/27 Continue bronchodilators (2) Pneumonitis: Code(s): J18.9 - Pneumonia, unspecified organism Status: Acute Assessment and Plan: See above (3) Gastroesophageal reflux disease: Code(s): K21.9 - Gastro-esophageal reflux disease without esophagitis Status: Acute Assessment and Plan: IV PPI (4) Primary adenocarcinoma of esophagus with metastasis: Onset Date: 05/23/21 Code(s): C15.9 - Malignant neoplasm of esophagus, unspecified Status: Acute (5) Anxiety: Code(s): F41.9 - Anxiety disorder, unspecified Status: Acute Assessment and Plan: Continue low-dose Precedex infusion which has helped significantly as patient is much more calm this morning. Will try to wean down to the day (6) Back pain: Code(s): M54.9 - Dorsalgia, unspecified Status: Acute Assessment and Plan: Continue P.r.n. morphine (7) Anemia associated with chemotherapy: Code(s): D64.81 - Anemia due to antineoplastic chemotherapy; T45.1X5A - Adverse effect of antineoplastic and immunosuppressive drugs, initial encounter Status: Acute Assessment and Plan: Patient has been anemic chronically and has been requiring blood transfusion as an outpatient. Resume Lovenox Continue to monitor hemoglobin Continue PPI Plan DVT prophylaxis -SCDs, not on Lovenox due to symptomatic anemia. Start if hemoglobin remains stable Stress ulcer prophylaxis -PPI Nutrition -NPO Code Status -patient wishes to be Full Code at this time but does not want to stay on a ventilator for a long period of time Case discussed with Pulmonary Total Critical Care Time - 30 minutes Due to a high probability of clinically significant, life threatening deterioration, the patient required my highest level of preparedness to intervene emergently and I personally spent this critical care time directly and personally managing the patient. This critical care time included obtaining a history; examining the patient; pulse oximetry; ordering and review of studies; arranging urgent treatment with development of a management plan; evaluation of patient's response to treatment; frequent reassessment; and discussions with other providers. It was exclusive of sep
[2021-11-28] MEDS: ENOXAPARIN 40 MG/0.4 ML SYRINGE SUB-Q (09:29)
--- NOTE | 2021-11-28 10:37 | PM.PNPUL ---
Progress Note: A&P Assessment and Plan (1) Pneumonitis: Code(s): J18.9 - Pneumonia, unspecified organism Status: Acute Assessment and Plan: this 66-year-old man presented with subacute illness that started approximately 2 weeks ago and is characterized by night sweats, dry cough, shortness of breath and low-grade fever.? Patient has been on antibiotic for possible pneumonia with no improvement.? He continues to have a dry cough shortness of breath and low-grade temperature.? The patient's symptoms are not quite typical for acute pneumonia.? The chest CT shows characteristic pattern bilaterally, with diffuse ground-glass opacities and some interlobular septal thickening.? The patient's clinical picture in conjunction with the chest CT findings suggest possible? chemotherapy-induced pneumonitis. ? Pneumocystis? Jiroveci? is less likely. The patient? has received? the PD-L1 inhibitor pembrolizumab and also trastuzumab which both can cause interstitial lung disease,? especially pembrolizumab.? the patient underwent bronchoscopy with BAL last p.m.. On bronchoscopy his bronchial tubes appear normal with no evidence of erythema edema or bronchial secretions. BAL was obtained for from the right upper lobe and right middle lobe. Cell count analysis showed mostly neutrophilic lavage. Plan: Vancomycin and Zosyn were discontinued. Will continue with just levofloxacin. BAL cultures pending pneumocystis smear also pending will continue with current Solu-Medrol dose of 80 mg daily. Monitor respiratory status in the unit; continue with DVT prophylaxis. (2) Hypoxemia: Code(s): R09.02 - Hypoxemia Status: Acute (3) Primary adenocarcinoma of esophagus with metastasis: Onset Date: 05/23/21 Code(s): C15.9 - Malignant neoplasm of esophagus, unspecified Status: Acute (4) Acute respiratory failure with hypoxia: Code(s): J96.01 - Acute respiratory failure with hypoxia Status: Acute Subjective Date/time seen: 11/28/21 10:37 Patient was transferred to intensive care unit following bronchoscopy last p.m.. Remained on BiPAP support overnight. Currently on high-flow nasal cannula. He has less shortness of breath. No coughing no fever. Review of Systems Review of Systems: All system review is negative except as noted in HPI and below Exam Narrative: GENERAL APPEARANCE: Well developed, well nourished, alert and cooperative, and appears to be in mild respiratory distress while on supplemental oxygen SKIN: Inspection of the skin reveals no rashes, ulcerations or petechiae. HEENT: Sclerae anicteric and conjunctivae pink and moist. Extraocular movements were intact and pupils were equal, round, and reactive to light. The oral mucosa, hard and soft palate, tongue and posterior pharynx were normal. NECK: Supple. There was no thyroid enlargement, and no tenderness, or masses were felt. CHEST: Normal AP diameter and normal contour without any kyphoscoliosis. LUNGS: Auscultation of the lungs showed clear breath sounds bilaterally no wheezing. CARDIAC: There was a regular rate and rhythm without any murmurs, gallops, rubs. ABDOMEN: Soft and nontender with normal bowel sounds. There was no organomegaly. LYMPH NODES: No lymphadenopathy was appreciated in the neck. EXTREMITIES: No cyanosis, clubbing; Trace edema NEUROLOGIC: Alert and oriented x 3. Normal affect. Objective Data Vital Signs Vital Signs: Vital Signs - 24 hr 11/27/21 11:32 11/27/21 11:42 11/27/21 11:52 Temperature 37.3 C Pulse Rate 75 83 70 Respiratory Rate 33 H 27 H 32 H Blood Pressure 117/41 L 99/42 L 98/47 L Pulse Oximetry 100 98 100 Oxygen Delivery BiPAP BiPAP BiPAP Oxygen Flow Rate Fraction of Inspired Oxygen 11/27/21 12:02 11/27/21 12:12 11/27/21 12:22 Temperature 36.8 C Pulse Rate 76 72 74 Respiratory Rate 33 H 29 H 33 H Blood Pressure 92/53 L 106/54 L 102/55 L Pulse Oximetry 99 100 100 Oxygen Delivery BiP
--- NOTE | 2021-11-28 10:49 | PCFNICU ---
ICU Rounding Note: Pt current nutrition is NPO. Last recorded weight is 90.8 kg. Bowel Motility:No Bm reported. Labs Reviewed:Glu 195, Cr 0.6,Alb 3.2,Hct 26.0,Hgb 8.1 Meds Noted:Precedex, Heparin,Solu Medrol, Protonix, Morphine Sulfate Skin: WNL Additional Notes: Patient seen today for nutrition follow up. Patient currently on Airvo. If patient remains NPO greater than 5 days recommend nutritional support. Following daily in ICU rounds and reassessing every Wednesday and Wednesday.
[2021-11-28] MEDS: MAGNESIUM 13.5 MG TABLET (250 MG MAG GLUCONATE) PO ×2 (11:29→20:11)
--- NOTE | 2021-11-28 11:47 | WPDCDIQUERY2 ---
CDI Query Clarification Request 11/23 ER physician documented: -Clinical Impression: ? Acute respiratory failure with hypoxia, Malignant neoplasm of lower third of esophagus, Multifocal pneumonia -Sepsis Qualifiers: ?Sepsis type:?sepsis due to unspecified organism?Sepsis acute organ dysfunction status:?unspecified?Qualified Code(s):?A41.9 - Sepsis, unspecified organism 11/23 Hospitalist documented: The patient meets criteria for sepsis with fever, leukocytosis, hyperbilirubinemia, and lactic acidosis in the setting of multifocal pneumonia. His vital signs have been stable and they will be monitor closely. Blood and sputum cultures ordered. 11/26 Pulmonary documented: The patient's symptoms are not quite typical for acute pneumonia.? The chest CT shows characteristic pattern bilaterally, with diffuse ground-glass opacities and some interlobular septal thickening.? The patient's clinical picture in conjunction with the chest CT findings suggest possible? chemotherapy-induced pneumonitis. ? Pneumocystis? Jiroveci? is less likely. As of 11/27 no documentation/diagnosis for Sepsis. Please clarify if Sepsis has been ruled in or ruled out. If ruled in, please add to problem list. if ruled in. Please clarify if Sepsis was present on admission <Nohemy Her - Last Filed: 11/28/21 12:01> 11/23 ER physician documented: -Clinical Impression: ? Acute respiratory failure with hypoxia, Malignant neoplasm of lower third of esophagus, Multifocal pneumonia -Sepsis Qualifiers: ?Sepsis type:?sepsis due to unspecified organism?Sepsis acute organ dysfunction status:?unspecified?Qualified Code(s):?A41.9 - Sepsis, unspecified organism 11/23 Hospitalist documented: The patient meets criteria for sepsis with fever, leukocytosis, hyperbilirubinemia, and lactic acidosis in the setting of multifocal pneumonia. His vital signs have been stable and they will be monitor closely. Blood and sputum cultures ordered. 11/26 Pulmonary documented: The patient's symptoms are not quite typical for acute pneumonia.? The chest CT shows characteristic pattern bilaterally, with diffuse ground-glass opacities and some interlobular septal thickening.? The patient's clinical picture in conjunction with the chest CT findings suggest possible? chemotherapy-induced pneumonitis. ? Pneumocystis? Jiroveci? is less likely. As of 11/27 no documentation/diagnosis for Sepsis. Please clarify if Sepsis has been ruled in or ruled out. If ruled in, please add to problem list. if ruled in. Please clarify if Sepsis was present on admission SEPSIS; CLINICALLY UNABLE TO DETERMINE AT THIS TIME <Daisy Sterling MD - Last Filed: 11/28/21 17:02>
[2021-11-28 11:53] LABS: CRP 35.5 mg/dL (<1.0)
--- NOTE | 2021-11-28 12:10 | PM.IMPN ---
Progress Note: A&P Assessment and Plan (1) Sepsis: Qualifiers: Sepsis acute organ dysfunction status: unspecified Sepsis type: sepsis due to unspecified organism Qualified Code(s): A41.9 - Sepsis, unspecified organism Code(s): A41.9 - Sepsis, unspecified organism Status: Acute (2) Multifocal pneumonia: Code(s): J18.9 - Pneumonia, unspecified organism Status: Acute (3) Hypoxemia: Code(s): R09.02 - Hypoxemia Status: Acute (4) Anemia associated with chemotherapy: Code(s): D64.81 - Anemia due to antineoplastic chemotherapy; T45.1X5A - Adverse effect of antineoplastic and immunosuppressive drugs, initial encounter Status: Acute (5) Gastroesophageal reflux disease: Code(s): K21.9 - Gastro-esophageal reflux disease without esophagitis Status: Acute (6) Primary adenocarcinoma of esophagus with metastasis: Onset Date: 05/23/21 Code(s): C15.9 - Malignant neoplasm of esophagus, unspecified Status: Acute (7) Hypertension: Code(s): I10 - Essential (primary) hypertension Status: Acute (8) Paroxysmal supraventricular tachycardia: Code(s): I47.1 - Supraventricular tachycardia Status: Acute Plan 11/25/21 Hypotension appears resolved, hemodynamically stable today, cont vanc, cefepime and azithromycin for PNA, f/u mycoplasma, legionella, s pneumo ab, all pending. Blood and urine cx pending. 11/25: Due to increasing leuk and worsening clinical picture, cefepime d/c in favor of zosyn, azithromycin d/c in favor of levaquin, MRSA swab pending. Vanc trough was subtherapeutic, MRSA not suspected at this time, vanc d/c. Sputum cx showed normal hill. Blood cx NGTD. Continue broad-spectrum antibiotics as above, follow-up blood and urine cultures Echocardiogram done several weeks ago showed normal systolic and diastolic function Continue supplemental oxygen, anticipate this to improve as his pneumonia resolved with antibiotic therapy The patient had a blood transfusion last Wednesday due to symptomatic anemia and he is stable above 8.5 at this time. Monitor. Continue pantoprazole. Status post palliative radiation, now receiving palliative chemotherapy per Dr. Marx though he has not received treatment for several weeks due to ongoing anemia. Continue to hold antihypertensives, patient somewhat hypotensive NSR, holding BP meds d/t hypotension, will restart when able 11/26/21 pt still febrile abx changed without improvement remains on Venti will consult pulm for expert consultation cont current care Tylenol for fever 11/27/21 pt for bronch today suspected chemo therapy related pneumonitis cont venti mask (overnight pt briefly placed on NRB mask) cont current care pulm recs appreciated 11/28/21 pt fair condition may require intubation cont abx cont steroids atypical infections workup pending cont resp support w HFNC 50L/60% pulm and cc managing Subjective Date/time seen: 11/28/21 12:10 bipap now on HFNC but still tachypneic and sats 88% pt seems to understand what differential dx are at this time, no family present Review of Systems Review of Systems: All systems reviewed & are unremarkable except as noted in HPI and below Exam Narrative: General: No acute distress, alert and oriented x3 HEENT: Atraumatic, normocephalic, mucous membranes moist CV: increased rate and rhythm, S1, S2 Lungs: Moderate air entry, crackles on HFNC 50L 40% Abdomen: Soft, nontender, nondistended Extremities: Normal to inspection Skin: No rashes noted, no lesions or wounds seen Psych: mood and affect congruent anxoius Objective Data Vital Signs Vital Signs: Vital Signs - 24 hr 11/27/21 12:12 11/27/21 12:22 11/27/21 12:32 Temperature 98.7 F Pulse Rate 72 74 77 Respiratory Rate 29 H 33 H 31 H Blood Pressure 106/54 L 102/55 L 102/55 L Pulse Oximetry 100 100 100 Oxygen Delivery BiPAP BiPAP BiPAP Oxygen Flow Rate
--- NOTE | 2021-11-28 12:33 | PCOTNOTE ---
Per nursing, pt. not medically appropriate to participate in therapy today, should be attempted again after today.
[2021-11-28] MEDS: HYDROcodone/acetaminophen (*CRX) 7.5-325 MG TABLET 1 TAB PO ×2 (15:00→20:10)
--- NOTE | 2021-11-28 19:19 | PDONCCN ---
HPI - Date of Consult Date/Time: 11/28/21 19:19 Requesting Physician: Blayne Willams MD Primary Care Provider: Myron Ward, - Consult Narrative Reason for consult: Metastatic esophageal cancer Narrative: Jordi Segura Sr. is a 66 year old male with metastatic esophageal cancer with liver involvement. Patient is currently on chemotherapy. He was seen about a week ago and chemotherapy was held due to anemia. Patient hemoglobin was 7.7 and received 1 unit of packed red blood cell on November 19 in preparation for continuation of chemotherapy. He was admitted to the hospital with diffuse myalgias nonproductive cough and shortness of breath. He has fever of 101 degree. Chest x-ray was performed that showed diffuse lung disease consistent with pulmonary edema versus pneumonia. CT chest was negative for pulmonary embolism. Patient received Zosyn. Now he is on Levaquin and Bactrim. Labs showed persistent anemia with hemoglobin of 8.1. He remains quite tired and fatigued with some shortness of breath and dyspnea on exertion. 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 Marx. Surgical History: Surgical History (Last Reviewed 11/27/21 @ 13:43 by Lucas Marte MD) History of colon resection History of esophagogastroduodenoscopy (EGD) History of gastrostomy tube placement History of insertion of tunneled central venous catheter (CVC) with port History of permanent cardiac pacemaker placement - Social History Social History: Social History (Last Reviewed 11/27/21 @ 13:43 by Lucas Marte MD) Alcohol Use: Alcohol intake: never Substance Use: Substance use: never Others: Spiritual care concerns: No Smoking Status: Smoking status: Former smoker Tobacco type: cigarettes Approximate Smoking End Date: 2012 Smoking Pack-years: Smoking packs per day: 1 Smoking cigarettes per day: 20.0 Years smoked: 30 Smoking pack-years: 30.00 Exam - Vital Signs Vital Signs - 24 hr 11/27/21 20:00 11/27/21 20:15 11/27/21 20:00 Temperature 37.3 C Pulse Rate 72 71 Respiratory Rate 33 H 29 H Blood Pressure 109/55 L Pulse Oximetry 92 96 95 Oxygen Delivery BiPAP BiPAP Oxygen Flow Rate Fraction of Inspired Oxygen 55 11/27/21 20:00 11/27/21 20:00 11/27/21 22:00 Temperature Pulse Rate 64 64 64 Respiratory Rate 30 H Blood Pressure Pulse Oximetry Oxygen Delivery Oxygen Flow Rate Fraction of Inspired Oxygen 11/27/21 22:00 11/27/21 22:00 11/27/21 22:42 Temperature Pulse Rate 64 74 82 Respiratory Rate 30 H 33 H 21 H Blood Pressure 128/68 Pulse Oximetry 97 97 Oxygen Delivery BiPAP Oxygen Flow Rate Fraction of Inspired Oxygen 11/28/21 00:00 11/28/21 00:22 11/28/21 00:00 Temperature 36.3 C L Pulse Rate 65 65 Respiratory Rate 22 H 22 H Blood Pressure 133/63 Pulse Oximetry 95 96 Oxygen Delivery BiPAP Oxygen Flow Rate Fraction of Inspired Oxygen 50 11/28/21 00:00 11/28/21 01:47 11/28/21 02:00 Temperature Pulse Rate 63 77 65 Respiratory Rate 28 H Blood Pressure Pulse Oximetry 97 Oxygen Delivery BiPAP Oxygen Flow Rate Fraction of Inspired Oxygen 11/28/21 02:00 11/28/21 02:00 11/28/21 04:48 Temperature Pulse Rate 65 63 64 Respiratory Rate 19 20 24 H Blood Pressure 138/68 Pulse Oximetry 97 95 Oxyge
[2021-11-28] MEDS: traZODone HCL 50 MG TABLET PO (20:11)
[2021-11-29] VITALS (20 sets, daily range): BP systolic 86–119; BP diastolic 42–65; PULSE 62–84; RESP 15–29; TEMP 36.3–36.9; O2SAT 89–100
[2021-11-29 02:07] LABS: Iron 19 ug/dL (49-181)
[2021-11-29 02:16] LABS: Percent Iron Saturation 6 % (20-50)
[2021-11-29 05:31] LABS: Alveolar/Arterial O2 Gradient 236.7 mmHg; Base Excess ABG 3.3 mEq/l (+/-2.0); Carboxyhemoglobin 0.3 % THb (0-2.0); Fractional Inspired Oxygen 50 %; HCO3 ABG 27.1 mEq/l (22.0-26.0); Methemoglobin ABG 0.5 %THb (0-1.5); Oxygen Content ABG 16.3 %vol (16.0-22.0); Oxyhemoglobin 94.5 % THb (90.0-100.0); PCO2 ABG 38.6 mmHg (35.0-45.0); PO2 ABG 76.4 mmHg (80.0-100.0); PO2 FiO2 Ratio Arterial Blood 1.53 %; Reduced Hemoglobin 4.7 %THb (0-5.0); Total Hemoglobin 12.2 g/dL (12.0-18.0); pH ABG 7.465 (7.350-7.450)
[2021-11-29 05:34] LABS: Device NON-INVASIVE VENT; Modified Allen's Test Pass; Site Drawn LEFT RADIAL
[2021-11-29 05:35] LABS: Non-Invasive Expiratory Pressure 8 CMH2O; Non-Invasive Inspiratory Pressure 12 CMH2O; Non-Invasive Vent Rate 14 /MIN
[2021-11-29] MEDS: MORPHINE SULFATE (*CRX) 4 MG/ML INJ IV PUSH ×2 (05:51→14:30)
[2021-11-29] MEDS: CENTRAL LINE FLUSH 10 ML IV PUSH ×3 (05:56→19:59)
[2021-11-29 06:06] LABS: Basophils Percent Auto 0.1 % (0.2-1.2); Hematocrit 24.8 % (42.0-52.0); Hemoglobin 7.7 g/dL (14.0-18.0); Immature Granulocyte Absolute 0.04 K/mm3 (0.00-0.031); Immature Granulocyte Percent A 0.4 % (0-0.5); Lymphocytes Percent Auto 1.9 % (18.3-44.2); Mean Corpuscular Hemoglobin 27.4 pg (26-34); Mean Corpuscular Volume 88.3 fl (80-100); Mean Platelet Volume 10.5 fl (7.4-10.4); Monocytes Absolute Auto 0.4 K/mm3 (0.1-0.6); Monocytes Percent Auto 3.8 % (2.6-8.5); Neutrophils Absolute Auto 9.8 K/mm3 (1.3-6.7); Neutrophils Percent Auto 93.8 % (45.5-73.1); Platelet Count Result 247 k/mm3 (150-375); Red Blood Count 2.81 M/mm3 (4.6-6.20); Red Cell Distribution Width 16.1 % (11.5-14.5); White Blood Count 10.5 K/mm3 (4.5-10.0)
[2021-11-29 06:16] LABS: Alanine Aminotransferase 21 U/L (6-50); Albumin Level 2.9 g/dL (3.5-5.1); Alkaline Phosphatase 123 U/L (38-126); Anion Gap 8 mmol/L (8-16); Aspartate Amino Transferase 29 U/L (17-59); Bilirubin,Total 0.5 mg/dL (0.2-1.3); Blood Urea Nitrogen 21 mg/dL (9-20); Calcium 8.9 mg/dL (8.4-10.2); Carbon Dioxide 27 mmol/L (22-30); Chloride 99 mmol/L (98-107); Estimated CRCL calculation 114 ml/min; Estimated Glomerular Filt Rate > 60; Glucose 126 mg/dL (65-110); Magnesium 2.4 mg/dL (1.6-2.3); Potassium 4.1 mmol/L (3.4-5.0); Sodium 134 mmol/L (137-145)
[2021-11-29] MEDS: HYDROcodone/acetaminophen (*CRX) 7.5-325 MG TABLET 1 TAB PO ×3 (08:03→22:08)
[2021-11-29] MEDS: methylPREDNISolone SOD SUCC 125 MG VIAL 80 MG IV PUSH (08:12)
[2021-11-29] MEDS: PANTOPRAZOLE SODIUM IV 40 MG VIAL IV PUSH (08:13)
[2021-11-29] MEDS: ENOXAPARIN 40 MG/0.4 ML SYRINGE SUB-Q (08:16)
[2021-11-29] MEDS: GABAPENTIN 300 MG CAPSULE PO ×2 (08:16→16:57)
[2021-11-29] MEDS: BENZONATATE 100 MG CAPSULE 200 MG PO ×3 (08:17→16:58)
--- NOTE | 2021-11-29 08:58 | WPDINTPN ---
Progress Note: A&P Assessment and Plan (1) Acute respiratory failure with hypoxia: Code(s): J96.01 - Acute respiratory failure with hypoxia Status: Acute Assessment and Plan: Acute hypoxic respiratory failure secondary to pneumonitis in an immunocompromised patient who is on chemotherapy and has received radiation therapy early this year CTA chest showed - Diffuse lung disease, consistent with moderate pulmonary edema without or with superimposed pneumonia. Chest x-ray today shows persistent diffuse bilateral infiltrate Differential includes radiation induced pneumonitis versus chemotherapy-induced pneumonitis versus infectious etiology versus ARDS Although patient is febrile, his WBC were normal. Procalcitonin level was low suggesting against infection Blood sputum and BAL cultures are negative till now Urine pneumococcal and Legionella antigen was negative COVID PCR was negative Mycoplasma IgM is low Pneumocystis antigen, CMV PCR pending Bronchoscopy done 11/27 showed normal-appearing bronchial system no rhythm, masses or secretion. BAL was performed and is pending Postprocedure patient became more hypoxic and in respiratory distress. And was started BiPAP 02/26 and 60% FiO2 and transferred to ICU 11/28 patient was transitioned Airvo and has been tolerating Continue Airvo during the day and BiPAP at night provide positive pressure ventilation to minimize atelectasis Continue IV morphine given for pain Off IV Precedex infusion now Vancomycin and Zosyn have been discontinue Continue Levaquin for bacterial coverage and Bactrim for PJP coverage. Discussed with pharmacy and they will adjust Bactrim dose. Pulmonary is following Continue Solu-Medrol Although he is clinically improved he still remains at risk of respiratory deterioration and requiring intubation and mechanical ventilation Echocardiogram reviewed He was given a dose of Lasix 11/27 and his overall balance is negative. Repeat BNP level Continue bronchodilators (2) Pneumonitis: Code(s): J18.9 - Pneumonia, unspecified organism Status: Acute Assessment and Plan: See above (3) Gastroesophageal reflux disease: Code(s): K21.9 - Gastro-esophageal reflux disease without esophagitis Status: Acute Assessment and Plan: IV PPI (4) Primary adenocarcinoma of esophagus with metastasis: Onset Date: 05/23/21 Code(s): C15.9 - Malignant neoplasm of esophagus, unspecified Status: Acute (5) Anxiety: Code(s): F41.9 - Anxiety disorder, unspecified Status: Acute Assessment and Plan: Off Precedex infusion now and doing better (6) Back pain: Code(s): M54.9 - Dorsalgia, unspecified Status: Acute Assessment and Plan: Continue P.r.n. morphine (7) Anemia associated with chemotherapy: Code(s): D64.81 - Anemia due to antineoplastic chemotherapy; T45.1X5A - Adverse effect of antineoplastic and immunosuppressive drugs, initial encounter Status: Acute Assessment and Plan: Patient has been anemic chronically and has been requiring blood transfusion as an outpatient. Continue Lovenox Continue to monitor hemoglobin Continue PPI Plan DVT prophylaxis -SCDs, Lovenox Stress ulcer prophylaxis -PPI Nutrition -advance diet Code Status -patient wishes to be Full Code at this time but does not want to stay on a ventilator for a long period of time Case discussed with Pulmonary Total Critical Care Time - 31 minutes Due to a high probability of clinically significant, life threatening deterioration, the patient required my highest level of preparedness to intervene emergently and I personally spent this critical care time directly and personally managing the patient. This critical care time included obtaining a history; examining the patient; pulse oximetry; ordering and review of studies; arranging urgent treatment with development of a management plan; evaluation of patient's response to treat
[2021-11-29] MEDS: polyethylene glycoL 3350 17 GM POWD.PACK PO (09:28)
--- NOTE | 2021-11-29 11:10 | PM.PNPUL ---
Progress Note: A&P Assessment and Plan (1) Pneumonitis: Code(s): J18.9 - Pneumonia, unspecified organism Status: Acute Assessment and Plan: this 66-year-old man presented with subacute illness that started approximately 2 weeks ago and is characterized by night sweats, dry cough, shortness of breath and low-grade fever.? Patient has been on antibiotic for possible pneumonia with no improvement.? He continues to have a dry cough shortness of breath and low-grade temperature.? The patient's symptoms are not quite typical for acute pneumonia.? The chest CT shows characteristic pattern bilaterally, with diffuse ground-glass opacities and some interlobular septal thickening.? The patient's clinical picture in conjunction with the chest CT findings suggest possible? chemotherapy-induced pneumonitis. ? Pneumocystis? Jiroveci? is less likely. The patient? has received? the PD-L1 inhibitor pembrolizumab and also trastuzumab which both can cause interstitial lung disease,? especially pembrolizumab.? the patient underwent bronchoscopy with BAL. On bronchoscopy his bronchial tubes appearred normal with no evidence of erythema, edema or bronchial secretions. BAL was obtained from the right upper lobe and right middle lobe. Cell count analysis showed mostly neutrophilic lavage. Plan: Will continue with levofloxacin and Bactrim for now. pneumocystis Jirovesi smear pending. BAL cultures negative so far. Solu-Medrol decreased to 60 mg IV daily. Continue to monitor respiratory status. chest x-ray stable over the last 2 days. continue with DVT prophylaxis. (2) Hypoxemia: Code(s): R09.02 - Hypoxemia Status: Acute (3) Primary adenocarcinoma of esophagus with metastasis: Onset Date: 05/23/21 Code(s): C15.9 - Malignant neoplasm of esophagus, unspecified Status: Acute (4) Acute respiratory failure with hypoxia: Code(s): J96.01 - Acute respiratory failure with hypoxia Status: Acute Subjective Date/time seen: 11/29/21 11:10 Patient continues to have shortness of breath with any movement out of bed. Has been afebrile still on high FiO2. No cough or sputum production. hemodynamically stable. BAL cultures negative so far. Remains on antibiotic levofloxacin and Bactrim. Review of Systems Review of Systems: All systems reviewed & are unremarkable except as noted in HPI and below Exam Narrative: GENERAL APPEARANCE: Well developed, well nourished, alert and cooperative, and appears to be in mild respiratory distress while on supplemental oxygen SKIN: Inspection of the skin reveals no rashes, ulcerations or petechiae. HEENT: Sclerae anicteric and conjunctivae pink and moist. Extraocular movements were intact and pupils were equal, round, and reactive to light. The oral mucosa, hard and soft palate, tongue and posterior pharynx were normal. NECK: Supple. There was no thyroid enlargement, and no tenderness, or masses were felt. CHEST: Normal AP diameter and normal contour without any kyphoscoliosis. LUNGS: Auscultation of the lungs showed clear breath sounds bilaterally no wheezing. CARDIAC: There was a regular rate and rhythm without any murmurs, gallops, rubs. ABDOMEN: Soft and nontender with normal bowel sounds. There was no organomegaly. LYMPH NODES: No lymphadenopathy was appreciated in the neck. EXTREMITIES: No cyanosis, clubbing; Trace edema NEUROLOGIC: Alert and oriented x 3. Normal affect. Objective Data Vital Signs Vital Signs: Vital Signs - 24 hr 11/28/21 12:19 11/28/21 12:00 11/28/21 14:00 Temperature Pulse Rate 67 64 67 Respiratory Rate 18 Blood Pressure Pulse Oximetry 94 Oxygen Delivery High Flow Therapy with Na Oxygen Flow Rate 60 Fraction of Inspired Oxygen 70 11/28/21 12:00 11/28/21 14:00 11/28/21 12:00 Temperature 36.3 C L Pulse Rate 64 66 64 Respiratory Rate 19 21 H 19 Blood Pressure 109/57 L 108/59 L Pulse Oximetry 93 95 93 Ox
[2021-11-29 11:47] LABS: Glucose Point of Care 153 mg/dl (65-105)
--- NOTE | 2021-11-29 13:09 | PCPTNOTE ---
Attempted to see for physical therapy re-evaluation, in order to be placed on the therapy treatment list. Attempted in AM and pt was fatigued from seeing OT. Attempted in afternoon and pt was eating and visiting with family. Will continue to follow.
--- NOTE | 2021-11-29 13:25 | PM.IMPN ---
Progress Note: A&P Assessment and Plan (1) Sepsis: Qualifiers: Sepsis acute organ dysfunction status: unspecified Sepsis type: sepsis due to unspecified organism Qualified Code(s): A41.9 - Sepsis, unspecified organism Code(s): A41.9 - Sepsis, unspecified organism Status: Acute (2) Multifocal pneumonia: Code(s): J18.9 - Pneumonia, unspecified organism Status: Acute (3) Hypoxemia: Code(s): R09.02 - Hypoxemia Status: Acute (4) Anemia associated with chemotherapy: Code(s): D64.81 - Anemia due to antineoplastic chemotherapy; T45.1X5A - Adverse effect of antineoplastic and immunosuppressive drugs, initial encounter Status: Acute (5) Gastroesophageal reflux disease: Code(s): K21.9 - Gastro-esophageal reflux disease without esophagitis Status: Acute (6) Primary adenocarcinoma of esophagus with metastasis: Onset Date: 05/23/21 Code(s): C15.9 - Malignant neoplasm of esophagus, unspecified Status: Acute (7) Hypertension: Code(s): I10 - Essential (primary) hypertension Status: Acute (8) Paroxysmal supraventricular tachycardia: Code(s): I47.1 - Supraventricular tachycardia Status: Acute Plan 11/25/21 Hypotension appears resolved, hemodynamically stable today, cont vanc, cefepime and azithromycin for PNA, f/u mycoplasma, legionella, s pneumo ab, all pending. Blood and urine cx pending. 11/25: Due to increasing leuk and worsening clinical picture, cefepime d/c in favor of zosyn, azithromycin d/c in favor of levaquin, MRSA swab pending. Vanc trough was subtherapeutic, MRSA not suspected at this time, vanc d/c. Sputum cx showed normal hill. Blood cx NGTD. Continue broad-spectrum antibiotics as above, follow-up blood and urine cultures Echocardiogram done several weeks ago showed normal systolic and diastolic function Continue supplemental oxygen, anticipate this to improve as his pneumonia resolved with antibiotic therapy The patient had a blood transfusion last Wednesday due to symptomatic anemia and he is stable above 8.5 at this time. Monitor. Continue pantoprazole. Status post palliative radiation, now receiving palliative chemotherapy per Dr. Marx though he has not received treatment for several weeks due to ongoing anemia. Continue to hold antihypertensives, patient somewhat hypotensive NSR, holding BP meds d/t hypotension, will restart when able 11/26/21 pt still febrile abx changed without improvement remains on Venti will consult pulm for expert consultation cont current care Tylenol for fever 11/27/21 pt for bronch today suspected chemo therapy related pneumonitis cont venti mask (overnight pt briefly placed on NRB mask) cont current care pulm recs appreciated 11/28/21 pt fair condition may require intubation cont abx cont steroids atypical infections workup pending cont resp support w HFNC 50L/60% pulm and cc managing 11/29/21 stable to return to IMU cont on 60L /60% cont steroids cont levaquin and bactrim dc bactrim when P carini negative anticipate slow recovery Subjective Date/time seen: 11/29/21 13:25 doing ok no new new complaints remains on AirVo 60L 60% Review of Systems Review of Systems: All systems reviewed & are unremarkable except as noted in HPI and below Exam Narrative: General: No acute distress, alert and oriented x3 HEENT: Atraumatic, normocephalic, mucous membranes moist CV: increased rate and rhythm, S1, S2 Lungs: Moderate air entry, crackles on HFNC 60L 60% Abdomen: Soft, nontender, nondistended Extremities: Normal to inspection Skin: No rashes noted, no lesions or wounds seen Psych: mood and affect congruent Objective Data Vital Signs Vital Signs: Vital Signs - 24 hr 11/28/21 14:00 11/28/21 14:00 11/28/21 16:00 Temperature Pulse Rate 67 66 68 Respiratory Rate 21 H 21 H Blood Pressure 108/59 L Pulse Oximetry 95 95 Oxygen Delive
[2021-11-29 13:29] LABS: CRP 19.6 mg/dL (<1.0)
[2021-11-29 13:53] LABS: NT Pro B Type Natriuretic Pept 203 pg/mL (5-100)
[2021-11-29] MEDS: MAGNESIUM 13.5 MG TABLET (250 MG MAG GLUCONATE) PO ×2 (14:29→19:59)
[2021-11-29 17:48] LABS: CMV DNA Quant PCR IU/mL Not Detected; Cytomegalovirus DNA Quant PCR Not Detected log IU/mL; Cytomegalovirus DNA Source Plasma
[2021-11-29 18:13] LABS: Glucose Point of Care 170 mg/dl (65-105)
[2021-11-29] MEDS: traZODone HCL 50 MG TABLET PO (21:06)
[2021-11-30] VITALS (21 sets, daily range): BP systolic 100–121; BP diastolic 48–68; PULSE 61–79; RESP 14–29; TEMP 36.6–36.9; O2SAT 93–100
[2021-11-30 04:46] LABS: Alveolar/Arterial O2 Gradient 142.1 mmHg; Base Excess ABG 0.5 mEq/l (+/-2.0); Carboxyhemoglobin 0.3 % THb (0-2.0); Fractional Inspired Oxygen 40 %; HCO3 ABG 24.1 mEq/l (22.0-26.0); Methemoglobin ABG 0.7 %THb (0-1.5); Oxygen Content ABG 11.3 %vol (16.0-22.0); Oxygen Saturation ABG 98.1 % (95.0-100.0); PCO2 ABG 33.9 mmHg (35.0-45.0); PO2 ABG 104.1 mmHg (80.0-100.0); Total Hemoglobin 8.2 g/dL (12.0-18.0); pH ABG 7.469 (7.350-7.450)
[2021-11-30 04:48] LABS: Device BIPAP; Modified Allen's Test Pass; Site Drawn RIGHT RADIAL
[2021-11-30 04:49] LABS: Expiratory Pressure 8 cmH2O; Inspiratory Pressure 12 cmH2O
[2021-11-30] MEDS: HYDROcodone/acetaminophen (*CRX) 7.5-325 MG TABLET 1 TAB PO ×3 (05:11→16:11)
[2021-11-30] MEDS: CENTRAL LINE FLUSH 10 ML IV PUSH ×3 (05:12→20:10)
[2021-11-30 05:46] LABS: Hematocrit 24.8 % (42.0-52.0); Hemoglobin 7.7 g/dL (14.0-18.0); Immature Granulocyte Absolute 0.03 K/mm3 (0.00-0.031); Immature Granulocyte Percent A 0.3 % (0-0.5); Lymphocytes Absolute Auto 0.26 K/mm3 (0.9-3.2); Lymphocytes Percent Auto 2.6 % (18.3-44.2); Mean Corpuscular Hemoglobin 26.5 pg (26-34); Mean Corpuscular Volume 85.2 fl (80-100); Mean Platelet Volume 10.6 fl (7.4-10.4); Monocytes Absolute Auto 0.5 K/mm3 (0.1-0.6); Monocytes Percent Auto 5.3 % (2.6-8.5); Neutrophils Absolute Auto 9.2 K/mm3 (1.3-6.7); Neutrophils Percent Auto 91.8 % (45.5-73.1); Platelet Count Result 289 k/mm3 (150-375); Red Blood Count 2.91 M/mm3 (4.6-6.20); Red Cell Distribution Width 16.6 % (11.5-14.5)
[2021-11-30 06:00] LABS: Alanine Aminotransferase 34 U/L (6-50); Alkaline Phosphatase 128 U/L (38-126); Anion Gap 10 mmol/L (8-16); Aspartate Amino Transferase 54 U/L (17-59); Bilirubin,Total 0.4 mg/dL (0.2-1.3); Blood Urea Nitrogen 20 mg/dL (9-20); Calcium 8.7 mg/dL (8.4-10.2); Carbon Dioxide 25 mmol/L (22-30); Chloride 97 mmol/L (98-107); Estimated CRCL calculation 114 ml/min; Estimated Glomerular Filt Rate > 60; Glucose 126 mg/dL (65-110); Magnesium 2.6 mg/dL (1.6-2.3); Potassium 4.2 mmol/L (3.4-5.0); Sodium 132 mmol/L (137-145)
[2021-11-30 06:06] LABS: Anisocytosis 1+ (NORMAL); Platelet Estimate Adequate (Adequate)
[2021-11-30] MEDS: BENZONATATE 100 MG CAPSULE 200 MG PO ×3 (08:51→16:12)
[2021-11-30] MEDS: GABAPENTIN 300 MG CAPSULE PO ×2 (08:52→16:13)
[2021-11-30] MEDS: ENOXAPARIN 40 MG/0.4 ML SYRINGE SUB-Q (08:52)
[2021-11-30] MEDS: methylPREDNISolone SOD SUCC 125 MG VIAL 60 MG IV PUSH (08:53)
[2021-11-30] MEDS: PANTOPRAZOLE SODIUM IV 40 MG VIAL IV PUSH (08:53)
[2021-11-30] MEDS: MORPHINE SULFATE (*CRX) 2 MG/ML INJ IV PUSH ×2 (09:02→21:34)
--- NOTE | 2021-11-30 09:31 | PM.PNPUL ---
Progress Note: A&P Assessment and Plan (1) Pneumonitis: Code(s): J18.9 - Pneumonia, unspecified organism Status: Acute Assessment and Plan: this 66-year-old man presented with subacute illness that started approximately 2 weeks [employer] and was characterized by night sweats, dry cough, shortness of breath and low-grade fever.? Patient has been on antibiotic for possible pneumonia with no improvement.? ? The patient's symptoms are not quite typical for acute pneumonia.? The chest CT shows characteristic pattern bilaterally, with diffuse ground-glass opacities and some interlobular septal thickening.? The patient's clinical picture in conjunction with the chest CT findings suggest possible? chemotherapy-induced pneumonitis. ? Pneumocystis? Jiroveci? is less likely. The patient? has received? the PD-L1 inhibitor pembrolizumab and also trastuzumab which both can cause interstitial lung disease,? especially pembrolizumab.? the patient underwent bronchoscopy with BAL. On bronchoscopy his bronchial tubes appeared normal with no evidence of erythema, edema or bronchial secretions. BAL was obtained from the right upper lobe and right middle lobe. Cell count analysis showed mostly neutrophilic lavage. Pneumocystis jiroveci C negative by DFA. BAL cultures negative so far. Bactrim has been discontinued. Today's chest x-ray showed partial clearing of bilateral infiltrates. Plan: Will continue with supportive care supplemental oxygen, BiPAP support at night. Continue with levofloxacin for now. Will start patient on oral steroids starting in a.m. okay to transfer patient to [facility]. (2) Hypoxemia: Code(s): R09.02 - Hypoxemia Status: Acute (3) Primary adenocarcinoma of esophagus with metastasis: Onset Date: 05/23/21 Code(s): C15.9 - Malignant neoplasm of esophagus, unspecified Status: Acute (4) Acute respiratory failure with hypoxia: Code(s): J96.01 - Acute respiratory failure with hypoxia Status: Acute Subjective Date/time seen: 11/30/21 09:31 patient still having shortness of breath when moving out of bed. no longer has cough. Afebrile. Still on high-flow nasal cannula during the day, goes on BiPAP support at night. Started to take more calories orally. Review of Systems Review of Systems: All systems reviewed & are unremarkable except as noted in HPI and below Exam Narrative: GENERAL APPEARANCE: Well developed, well nourished, alert and cooperative, and appears to be in mild respiratory distress while on supplemental oxygen SKIN: Inspection of the skin reveals no rashes, ulcerations or petechiae. HEENT: Sclerae anicteric and conjunctivae pink and moist. Extraocular movements were intact and pupils were equal, round, and reactive to light. The oral mucosa, hard and soft palate, tongue and posterior pharynx were normal. NECK: Supple. There was no thyroid enlargement, and no tenderness, or masses were felt. CHEST: Normal AP diameter and normal contour without any kyphoscoliosis. LUNGS: Auscultation of the lungs showed clear breath sounds bilaterally no wheezing. CARDIAC: There was a regular rate and rhythm without any murmurs, gallops, rubs. ABDOMEN: Soft and nontender with normal bowel sounds. There was no organomegaly. LYMPH NODES: No lymphadenopathy was appreciated in the neck. EXTREMITIES: No cyanosis, clubbing; Trace edema NEUROLOGIC: Alert and oriented x 3. Normal affect. Objective Data Vital Signs Vital Signs: Vital Signs - 24 hr 11/29/21 10:00 11/29/21 11:04 11/29/21 10:00 Temperature 36.6 C Pulse Rate 65 66 Respiratory Rate 19 Blood Pressure 94/52 L Pulse Oximetry 97 Oxygen Delivery High Flow Nasal Cannula Oxygen Flow Rate 14 Fraction of Inspired Oxygen 11/29/21 11:49 11/29/21 12:00 11/29/21 14:00 Temperature 36.3 C L 36.9 C Pulse Rate 66 67 70 Respiratory Rate 23 H 23 H 24 H Blood Pressure 108/65 102/52 L Pulse Oxime
[2021-11-30] MEDS: MAGNESIUM 13.5 MG TABLET (250 MG MAG GLUCONATE) PO ×2 (11:52→20:10)
--- NOTE | 2021-11-30 18:40 | PM.IMPN ---
Progress Note: A&P Assessment and Plan (1) Sepsis: Qualifiers: Sepsis acute organ dysfunction status: unspecified Sepsis type: sepsis due to unspecified organism Qualified Code(s): A41.9 - Sepsis, unspecified organism Code(s): A41.9 - Sepsis, unspecified organism Status: Acute (2) Multifocal pneumonia: Code(s): J18.9 - Pneumonia, unspecified organism Status: Acute (3) Hypoxemia: Code(s): R09.02 - Hypoxemia Status: Acute (4) Anemia associated with chemotherapy: Code(s): D64.81 - Anemia due to antineoplastic chemotherapy; T45.1X5A - Adverse effect of antineoplastic and immunosuppressive drugs, initial encounter Status: Acute (5) Gastroesophageal reflux disease: Code(s): K21.9 - Gastro-esophageal reflux disease without esophagitis Status: Acute (6) Primary adenocarcinoma of esophagus with metastasis: Onset Date: 05/23/21 Code(s): C15.9 - Malignant neoplasm of esophagus, unspecified Status: Acute (7) Hypertension: Code(s): I10 - Essential (primary) hypertension Status: Acute (8) Paroxysmal supraventricular tachycardia: Code(s): I47.1 - Supraventricular tachycardia Status: Acute Plan 11/25/21 Hypotension appears resolved, hemodynamically stable today, cont vanc, cefepime and azithromycin for PNA, f/u mycoplasma, legionella, s pneumo ab, all pending. Blood and urine cx pending. 11/25: Due to increasing leuk and worsening clinical picture, cefepime d/c in favor of zosyn, azithromycin d/c in favor of levaquin, MRSA swab pending. Vanc trough was subtherapeutic, MRSA not suspected at this time, vanc d/c. Sputum cx showed normal hill. Blood cx NGTD. Continue broad-spectrum antibiotics as above, follow-up blood and urine cultures Echocardiogram done several weeks ago showed normal systolic and diastolic function Continue supplemental oxygen, anticipate this to improve as his pneumonia resolved with antibiotic therapy The patient had a blood transfusion last Wednesday due to symptomatic anemia and he is stable above 8.5 at this time. Monitor. Continue pantoprazole. Status post palliative radiation, now receiving palliative chemotherapy per Dr. Marx though he has not received treatment for several weeks due to ongoing anemia. Continue to hold antihypertensives, patient somewhat hypotensive NSR, holding BP meds d/t hypotension, will restart when able 11/26/21 pt still febrile abx changed without improvement remains on Venti will consult pulm for expert consultation cont current care Tylenol for fever 11/27/21 pt for bronch today suspected chemo therapy related pneumonitis cont venti mask (overnight pt briefly placed on NRB mask) cont current care pulm recs appreciated 11/28/21 pt fair condition may require intubation cont abx cont steroids atypical infections workup pending cont resp support w HFNC 50L/60% pulm and cc managing 11/29/21 stable to return to IMU cont on 60L /60% cont steroids cont levaquin and bactrim dc bactrim when P carini negative anticipate slow recovery 11/30/21 pt in IMU status pending bed availability remains stable on HFNC 60L/50% cxr slightly improved today cont steroids cont Levaquin Bactrim discontinued P carini negative appears to be pneumonitis associated w chemothrapy Subjective Date/time seen: 11/30/21 18:40 pt doing better still on airvo HFNC 60L /50% Review of Systems Review of Systems: All systems reviewed & are unremarkable except as noted in HPI and below Exam Narrative: General: No acute distress, alert and oriented x3 HEENT: Atraumatic, normocephalic, mucous membranes moist CV: increased rate and rhythm, S1, S2 Lungs: Moderate air entry, crackles on HFNC 60L 60% Abdomen: Soft, nontender, nondistended Extremities: Normal to inspection Skin: No rashes noted, no lesions or wounds seen Psych: mood and affect congruent Objective Da
[2021-11-30] MEDS: traZODone HCL 50 MG TABLET PO (20:10)
--- NOTE | 2021-11-30 21:46 | PC.NURSE ---
Patient placed back in bed, now bipap for tonight, no complaints.
[2021-12-01] VITALS (17 sets, daily range): BP systolic 101–121; BP diastolic 48–81; PULSE 63–81; RESP 14–24; TEMP 36.6–37; O2SAT 93–99
--- NOTE | 2021-12-01 02:38 | PC.NURSE ---
Patient placed back on AIRVO at 40L, 45% per patient request
[2021-12-01] MEDS: HYDROcodone/acetaminophen (*CRX) 7.5-325 MG TABLET 1 TAB PO ×3 (04:36→18:33)
[2021-12-01] MEDS: CENTRAL LINE FLUSH 10 ML IV PUSH ×3 (04:37→20:22)
[2021-12-01 04:40] LABS: Hematocrit 23.8 % (42.0-52.0); Hemoglobin 7.4 g/dL (14.0-18.0); Immature Granulocyte Absolute 0.05 K/mm3 (0.00-0.031); Immature Granulocyte Percent A 0.5 % (0-0.5); Lymphocytes Absolute Auto 0.23 K/mm3 (0.9-3.2); Lymphocytes Percent Auto 2.5 % (18.3-44.2); Mean Corpuscular HGB Conc 31.1 g/dl (32-36); Mean Corpuscular Hemoglobin 26.6 pg (26-34); Mean Corpuscular Volume 85.6 fl (80-100); Mean Platelet Volume 10.2 fl (7.4-10.4); Monocytes Absolute Auto 0.6 K/mm3 (0.1-0.6); Monocytes Percent Auto 6.1 % (2.6-8.5); Neutrophils Absolute Auto 8.5 K/mm3 (1.3-6.7); Neutrophils Percent Auto 90.9 % (45.5-73.1); Platelet Count Result 252 k/mm3 (150-375); Red Blood Count 2.78 M/mm3 (4.6-6.20); Red Cell Distribution Width 16.5 % (11.5-14.5); White Blood Count 9.3 K/mm3 (4.5-10.0)
[2021-12-01 04:54] LABS: Alanine Aminotransferase 42 U/L (6-50); Albumin Level 2.9 g/dL (3.5-5.1); Alkaline Phosphatase 126 U/L (38-126); Anion Gap 10 mmol/L (8-16); Aspartate Amino Transferase 56 U/L (17-59); Bilirubin,Total 0.5 mg/dL (0.2-1.3); Blood Urea Nitrogen 19 mg/dL (9-20); Calcium 8.3 mg/dL (8.4-10.2); Carbon Dioxide 27 mmol/L (22-30); Chloride 96 mmol/L (98-107); Estimated CRCL calculation 114 ml/min; Estimated Glomerular Filt Rate > 60; Glucose 154 mg/dL (65-110); Magnesium 2.5 mg/dL (1.6-2.3); Potassium 4.6 mmol/L (3.4-5.0); Sodium 133 mmol/L (137-145)
[2021-12-01 05:37] LABS: Alveolar/Arterial O2 Gradient 225.6 mmHg; Base Excess ABG 1.6 mEq/l (+/-2.0); Device HIGH FLOW THERAPY; Fractional Inspired Oxygen 45 %; Methemoglobin ABG 0.4 %THb (0-1.5); Oxygen Content ABG 10.9 %vol (16.0-22.0); Oxygen Saturation ABG 91.7 % (95.0-100.0); Oxyhemoglobin 88.7 % THb (90.0-100.0); PCO2 ABG 34.1 mmHg (35.0-45.0); PO2 ABG 56.5 mmHg (80.0-100.0); PO2 FiO2 Ratio Arterial Blood 1.26 %; Reduced Hemoglobin 10.9 %THb (0-5.0); Site Drawn RIGHT BRACHIAL; Total Hemoglobin 8.7 g/dL (12.0-18.0); pH ABG 7.483 (7.350-7.450)
--- NOTE | 2021-12-01 08:13 | PM.IMPN ---
Progress Note: A&P Assessment and Plan (1) Sepsis: Qualifiers: Sepsis acute organ dysfunction status: unspecified Sepsis type: sepsis due to unspecified organism Qualified Code(s): A41.9 - Sepsis, unspecified organism Code(s): A41.9 - Sepsis, unspecified organism Status: Acute (2) Multifocal pneumonia: Code(s): J18.9 - Pneumonia, unspecified organism Status: Acute (3) Hypoxemia: Code(s): R09.02 - Hypoxemia Status: Acute (4) Anemia associated with chemotherapy: Code(s): D64.81 - Anemia due to antineoplastic chemotherapy; T45.1X5A - Adverse effect of antineoplastic and immunosuppressive drugs, initial encounter Status: Acute (5) Gastroesophageal reflux disease: Code(s): K21.9 - Gastro-esophageal reflux disease without esophagitis Status: Acute (6) Primary adenocarcinoma of esophagus with metastasis: Onset Date: 05/23/21 Code(s): C15.9 - Malignant neoplasm of esophagus, unspecified Status: Acute (7) Hypertension: Code(s): I10 - Essential (primary) hypertension Status: Acute (8) Paroxysmal supraventricular tachycardia: Code(s): I47.1 - Supraventricular tachycardia Status: Acute Plan 11/25/21 Hypotension appears resolved, hemodynamically stable today, cont vanc, cefepime and azithromycin for PNA, f/u mycoplasma, legionella, s pneumo ab, all pending. Blood and urine cx pending. 11/25: Due to increasing leuk and worsening clinical picture, cefepime d/c in favor of zosyn, azithromycin d/c in favor of levaquin, MRSA swab pending. Vanc trough was subtherapeutic, MRSA not suspected at this time, vanc d/c. Sputum cx showed normal hill. Blood cx NGTD. Continue broad-spectrum antibiotics as above, follow-up blood and urine cultures Echocardiogram done several weeks ago showed normal systolic and diastolic function Continue supplemental oxygen, anticipate this to improve as his pneumonia resolved with antibiotic therapy The patient had a blood transfusion last Wednesday due to symptomatic anemia and he is stable above 8.5 at this time. Monitor. Continue pantoprazole. Status post palliative radiation, now receiving palliative chemotherapy per Dr. Marx though he has not received treatment for several weeks due to ongoing anemia. Continue to hold antihypertensives, patient somewhat hypotensive NSR, holding BP meds d/t hypotension, will restart when able 11/26/21 pt still febrile abx changed without improvement remains on Venti will consult pulm for expert consultation cont current care Tylenol for fever 11/27/21 pt for bronch today suspected chemo therapy related pneumonitis cont venti mask (overnight pt briefly placed on NRB mask) cont current care pulm recs appreciated 11/28/21 pt fair condition may require intubation cont abx cont steroids atypical infections workup pending cont resp support w HFNC 50L/60% pulm and cc managing 11/29/21 stable to return to IMU cont on 60L /60% cont steroids cont levaquin and bactrim dc bactrim when P carini negative anticipate slow recovery 11/30/21 pt in IMU status pending bed availability remains stable on HFNC 60L/50% cxr slightly improved today cont steroids cont Levaquin Bactrim discontinued P carini negative appears to be pneumonitis associated w chemotherapy 12/01/21 pt improving O2 down to 40/45% remains on steroids cont Levaquin today pulm following recs appreciated Subjective Date/time seen: 12/01/21 08:13 pt doing better O2 requirements decreasing, tolerating PO, unable to tolerate bipap Review of Systems Review of Systems: All systems reviewed & are unremarkable except as noted in HPI and below Exam Narrative: General: No acute distress, alert and oriented x3 HEENT: Atraumatic, normocephalic, mucous membranes moist CV: increased rate and rhythm, S1, S2 Lungs: Moderate air entry, crackles on HFNC 60L 60% Abdomen: Soft, nonte
[2021-12-01] MEDS: MORPHINE SULFATE (*CRX) 2 MG/ML INJ IV PUSH ×3 (08:15→22:15)
[2021-12-01] MEDS: BENZONATATE 100 MG CAPSULE 200 MG PO ×3 (08:17→16:16)
[2021-12-01] MEDS: ENOXAPARIN 40 MG/0.4 ML SYRINGE SUB-Q (08:17)
[2021-12-01] MEDS: GABAPENTIN 300 MG CAPSULE PO ×2 (08:18→16:16)
[2021-12-01] MEDS: predniSONE 20 MG TABLET 40 MG PO (08:19)
[2021-12-01] MEDS: PANTOPRAZOLE SODIUM IV 40 MG VIAL IV PUSH (08:20)
--- NOTE | 2021-12-01 11:16 | PCNFU ---
Nutrition Follow-Up Complete: Unintended weight loss as related to cancer as evidenced by 16 ibs weight loss on the past 3 months. Goal; Meet estimated nutritional needs Patient is progressing towards goal. We will continue current goal. Pt current nutrition is Regular with Ensure compact BID. Last recorded weight is 89.9 kg, up from 77.8 kg on admit. Bowel Motility:+BM reported 11/30 Labs Reviewed:Cr 0.6,Glu 154, Na 133, Hgb 7.4,Hct 23.8 Meds Noted:Lovenox, Prednisone,Levaquin,[place]. Skin: WNL Additional Notes: Patient diet order has advanced to regular. Oral Intake has been 50-90% of meals. Agree with diet orders. Monitoring: Will monitor every 7 days.
[2021-12-01] MEDS: MAGNESIUM 13.5 MG TABLET (250 MG MAG GLUCONATE) PO ×2 (11:20→20:22)
--- NOTE | 2021-12-01 13:29 | PM.PNPUL ---
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 This 66-year-old man presented with subacute illness that started approximately 2 weeks [employer] and was characterized by night sweats, dry cough, shortness of breath and low-grade fever.? Patient has been on antibiotic for possible pneumonia with no improvement.? ? The patient's symptoms are not quite typical for acute pneumonia.? The chest CT shows characteristic pattern bilaterally, with diffuse ground-glass opacities and some interlobular septal thickening.? The patient's clinical picture in conjunction with the chest CT findings suggest possible? chemotherapy-induced pneumonitis. ? Pneumocystis? Jiroveci? is less likely. The patient? has received? the PD-L1 inhibitor pembrolizumab and also trastuzumab which both can cause interstitial lung disease,? especially pembrolizumab.? the patient underwent bronchoscopy with BAL. On bronchoscopy his bronchial tubes appeared normal with no evidence of erythema, edema or bronchial secretions.? BAL was obtained from the right upper lobe and right middle lobe.? Cell count analysis showed mostly neutrophilic lavage.? Pneumocystis jiroveci C negative by DFA.? BAL cultures negative so far.? Bactrim has been discontinued. ? Today's chest x-ray showed partial clearing of bilateral infiltrates. 11/30 Plan: ? ? ? Will continue with supportive care supplemental oxygen, BiPAP support at night.? Continue with levofloxacin for now.? Will start patient on oral steroids starting in a.m. okay to transfer patient to [facility]. Was on 60 L and 45% and goes on BiPAP support at night.? Medrol 60 mg IV q.day. 12/01 Patient tells me that he continues to improve. His dry cough is 80% better. His chest tightness is better. He is on high-flow nasal cannula oxygen at 40 L and 45% FiO2 with saturations 93%. He tolerated BiPAP last night poorly. chest x-ray today demonstrates no change in his bilateral interstitial And alveolar infiltrates. Slow improvement in his oxygenation. Prednisone 40 mg p.o. q.day. Continue Levaquin, started 11 25. Patient has been afebrile since 11/27. The patient tolerated the tolerated BiPAP poorly last night and I would only use BiPAP if he fails high-flow nasal cannula. Discussed with Dr. Sterling Subjective Date/time seen: 12/01/21 13:29 Interval history: Consult date: 11/26/21 Chief complaint: acute respiratory failure with hypoxia,multifocal Narrative: This 66-year-old man presented with shortness of breath, fever, and cough.? The patient has history of esophageal carcinoma and has been treated with radiation therapy and currently has been on chemotherapy that started back in July.? The patient's last chemotherapy was November 04. The chemotherapy regimen includes among other medications trastuzumab and? pembrolizumab. Since July of this year the patient has received at least 3-4 doses of pembrolizumab and at trastuzumab.? Patient was in his usual state of health until approximately 2 weeks ago when he noticed some swelling in his lower extremities, and started having sweats at night and shortness of breath.? He also complained of fatigue and felt feverish.? Since then the patient's shortness of breath has progressively increased. Around the same the time he also started having? cough which was mostly dry.? He had no chills hemoptysis chest pain or wheezing. ? on evaluation in the emergency room the chest CT? showed bilateral infiltrates and small pleural effusions.? The patient has been treated with antibiotics for possible pneumonia.? He continues to have shortness of breath and dry cough.? He also runs a low-grade temperature.? His COVID test has been negative both at home when tested prior to coming to the hospital and also during this hospitalization.
[2021-12-01] MEDS: traZODone HCL 50 MG TABLET PO (20:22)
[2021-12-02] VITALS (16 sets, daily range): BP systolic 97–124; BP diastolic 48–79; PULSE 63–102; RESP 14–22; TEMP 36.2–36.9; O2SAT 91–100
[2021-12-02] MEDS: MORPHINE SULFATE (*CRX) 2 MG/ML INJ IV PUSH ×2 (03:15→11:38)
[2021-12-02] MEDS: CENTRAL LINE FLUSH 10 ML IV PUSH ×3 (03:16→21:43)
[2021-12-02 03:20] LABS: Eosinophils Percent Auto 0.3 % (0-4.4); Hematocrit 23.7 % (42.0-52.0); Hemoglobin 7.4 g/dL (14.0-18.0); Immature Granulocyte Absolute 0.04 K/mm3 (0.00-0.031); Immature Granulocyte Percent A 0.4 % (0-0.5); Lymphocytes Absolute Auto 0.46 K/mm3 (0.9-3.2); Lymphocytes Percent Auto 4.3 % (18.3-44.2); Mean Corpuscular HGB Conc 31.2 g/dl (32-36); Mean Corpuscular Hemoglobin 27.3 pg (26-34); Mean Corpuscular Volume 87.5 fl (80-100); Mean Platelet Volume 10.1 fl (7.4-10.4); Monocytes Absolute Auto 0.6 K/mm3 (0.1-0.6); Monocytes Percent Auto 5.7 % (2.6-8.5); Neutrophils Absolute Auto 9.6 K/mm3 (1.3-6.7); Neutrophils Percent Auto 89.3 % (45.5-73.1); Platelet Count Result 234 k/mm3 (150-375); Red Blood Count 2.71 M/mm3 (4.6-6.20); Red Cell Distribution Width 16.5 % (11.5-14.5); White Blood Count 10.8 K/mm3 (4.5-10.0)
[2021-12-02 03:31] LABS: Alanine Aminotransferase 42 U/L (6-50); Albumin Level 2.7 g/dL (3.5-5.1); Alkaline Phosphatase 126 U/L (38-126); Anion Gap 8 mmol/L (8-16); Aspartate Amino Transferase 45 U/L (17-59); Bilirubin,Total 0.6 mg/dL (0.2-1.3); Blood Urea Nitrogen 17 mg/dL (9-20); Calcium 8.3 mg/dL (8.4-10.2); Carbon Dioxide 26 mmol/L (22-30); Chloride 98 mmol/L (98-107); Estimated CRCL calculation 114 ml/min; Estimated Glomerular Filt Rate > 60; Glucose 126 mg/dL (65-110); Magnesium 2.3 mg/dL (1.6-2.3); Sodium 132 mmol/L (137-145)
[2021-12-02] MEDS: HYDROcodone/acetaminophen (*CRX) 7.5-325 MG TABLET 1 TAB PO ×2 (08:07→14:20)
--- NOTE | 2021-12-02 08:51 | PM.PNPUL ---
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 This 66-year-old man presented with subacute illness that started approximately 2 weeks [employer] and was characterized by night sweats, dry cough, shortness of breath and low-grade fever.? Patient has been on antibiotic for possible pneumonia with no improvement.? ? The patient's symptoms are not quite typical for acute pneumonia.? The chest CT shows characteristic pattern bilaterally, with diffuse ground-glass opacities and some interlobular septal thickening.? The patient's clinical picture in conjunction with the chest CT findings suggest possible? chemotherapy-induced pneumonitis. ? Pneumocystis? Jiroveci? is less likely. The patient? has received? the PD-L1 inhibitor pembrolizumab and also trastuzumab which both can cause interstitial lung disease,? especially pembrolizumab.? the patient underwent bronchoscopy with BAL. On bronchoscopy his bronchial tubes appeared normal with no evidence of erythema, edema or bronchial secretions.? BAL was obtained from the right upper lobe and right middle lobe.? Cell count analysis showed mostly neutrophilic lavage.? Pneumocystis jiroveci C negative by DFA.? BAL cultures negative so far.? Bactrim has been discontinued. ? Today's chest x-ray showed partial clearing of bilateral infiltrates. 11/30 Plan: ? ? ? Will continue with supportive care supplemental oxygen, BiPAP support at night.? Continue with levofloxacin for now.? Will start patient on oral steroids starting in a.m. okay to transfer patient to [facility]. Was on 60 L and 45% and goes on BiPAP support at night.? Medrol 60 mg IV q.day. 12/01 Patient tells me that he continues to improve. His dry cough is 80% better. His chest tightness is better. He is on high-flow nasal cannula oxygen at 40 L and 45% FiO2 with saturations 93%. He tolerated BiPAP last night poorly. chest x-ray today demonstrates no change in his bilateral interstitial And alveolar infiltrates. Slow improvement in his oxygenation. Prednisone 40 mg p.o. q.day. Continue Levaquin, started 11 25. Patient has been afebrile since 11/27. The patient tolerated the tolerated BiPAP poorly last night and I would only use BiPAP if he fails high-flow nasal cannula. 12/02 Patient went without BiPAP last night. Continues to slowly improve. Currently is on high-flow nasal cannula 35 L and 40% FiO2 with saturations 90%. White blood cell count 10.8, creatinine 0.6, chest x-ray with unchanged diffuse interstitial alveolar infiltrates bilaterally. Prednisone 40 today. Levaquin day 8 and will DC. slow improvement in his oxygenation. Will continue prednisone 40 mg q.day while monitoring for improvement. the literature suggests that the patient will likely require weeks to months of prednisone. Subjective Date/time seen: 12/02/21 08:51 Interval history: Consult date: 11/26/21 Chief complaint: acute respiratory failure with hypoxia,multifocal Narrative: This 66-year-old man presented with shortness of breath, fever, and cough.? The patient has history of esophageal carcinoma and has been treated with radiation therapy and currently has been on chemotherapy that started back in July.? The patient's last chemotherapy was November 04. The chemotherapy regimen includes among other medications trastuzumab and? pembrolizumab. Since July of this year the patient has received at least 3-4 doses of pembrolizumab and at trastuzumab.? Patient was in his usual state of health until approximately 2 weeks ago when he noticed some swelling in his lower extremities, and started having sweats at night and shortness of breath.? He also complained of fatigue and felt feverish.? Since then the patient's shortness of breath has progressively increased. Around the same t
[2021-12-02] MEDS: PANTOPRAZOLE SODIUM IV 40 MG VIAL IV PUSH (09:27)
[2021-12-02] MEDS: predniSONE 20 MG TABLET 40 MG PO (09:27)
[2021-12-02] MEDS: GABAPENTIN 300 MG CAPSULE PO ×2 (09:27→18:30)
[2021-12-02] MEDS: BENZONATATE 100 MG CAPSULE 200 MG PO ×3 (09:28→18:30)
[2021-12-02] MEDS: ENOXAPARIN 40 MG/0.4 ML SYRINGE SUB-Q (09:29)
--- NOTE | 2021-12-02 11:05 | PM.IMPN ---
Progress Note: A&P Assessment and Plan (1) Sepsis: Qualifiers: Sepsis acute organ dysfunction status: unspecified Sepsis type: sepsis due to unspecified organism Qualified Code(s): A41.9 - Sepsis, unspecified organism Code(s): A41.9 - Sepsis, unspecified organism Status: Acute (2) Multifocal pneumonia: Code(s): J18.9 - Pneumonia, unspecified organism Status: Acute (3) Hypoxemia: Code(s): R09.02 - Hypoxemia Status: Acute (4) Anemia associated with chemotherapy: Code(s): D64.81 - Anemia due to antineoplastic chemotherapy; T45.1X5A - Adverse effect of antineoplastic and immunosuppressive drugs, initial encounter Status: Acute (5) Gastroesophageal reflux disease: Code(s): K21.9 - Gastro-esophageal reflux disease without esophagitis Status: Acute (6) Primary adenocarcinoma of esophagus with metastasis: Onset Date: 05/23/21 Code(s): C15.9 - Malignant neoplasm of esophagus, unspecified Status: Acute (7) Hypertension: Code(s): I10 - Essential (primary) hypertension Status: Acute (8) Paroxysmal supraventricular tachycardia: Code(s): I47.1 - Supraventricular tachycardia Status: Acute Plan 11/25/21 Hypotension appears resolved, hemodynamically stable today, cont vanc, cefepime and azithromycin for PNA, f/u mycoplasma, legionella, s pneumo ab, all pending. Blood and urine cx pending. 11/25: Due to increasing leuk and worsening clinical picture, cefepime d/c in favor of zosyn, azithromycin d/c in favor of levaquin, MRSA swab pending. Vanc trough was subtherapeutic, MRSA not suspected at this time, vanc d/c. Sputum cx showed normal hill. Blood cx NGTD. Continue broad-spectrum antibiotics as above, follow-up blood and urine cultures Echocardiogram done several weeks ago showed normal systolic and diastolic function Continue supplemental oxygen, anticipate this to improve as his pneumonia resolved with antibiotic therapy The patient had a blood transfusion last Wednesday due to symptomatic anemia and he is stable above 8.5 at this time. Monitor. Continue pantoprazole. Status post palliative radiation, now receiving palliative chemotherapy per Dr. Marx though he has not received treatment for several weeks due to ongoing anemia. Continue to hold antihypertensives, patient somewhat hypotensive NSR, holding BP meds d/t hypotension, will restart when able 11/26/21 pt still febrile abx changed without improvement remains on Venti will consult pulm for expert consultation cont current care Tylenol for fever 11/27/21 pt for bronch today suspected chemo therapy related pneumonitis cont venti mask (overnight pt briefly placed on NRB mask) cont current care pulm recs appreciated 11/28/21 pt fair condition may require intubation cont abx cont steroids atypical infections workup pending cont resp support w HFNC 50L/60% pulm and cc managing 11/29/21 stable to return to IMU cont on 60L /60% cont steroids cont levaquin and bactrim dc bactrim when P carini negative anticipate slow recovery 11/30/21 pt in IMU status pending bed availability remains stable on HFNC 60L/50% cxr slightly improved today cont steroids cont Levaquin Bactrim discontinued P carini negative appears to be pneumonitis associated w chemotherapy 12/01/21 pt improving O2 down to 40/45% remains on steroids cont Levaquin today pulm following recs appreciated 12/02/21 dc morphine [place] -> Percocet q 6 hrs 5 / 10 regimen lidocaine patch to back O2 requirements improving on steroids PT/OT pt is in IMU status pulm following Subjective Date/time seen: 12/02/21 11:05 pt sitting up in chair at side of bed, +productive cough, reports back pain poorly controlled on morphine Review of Systems Review of Systems: All systems reviewed & are unremarkable except as noted in HPI and below Exam Narrative: General: No acute distre
[2021-12-02] MEDS: MAGNESIUM 13.5 MG TABLET (250 MG MAG GLUCONATE) PO ×2 (11:11→21:43)
[2021-12-02] MEDS: SODIUM CHLORIDE 0.9% IV 500 ML 100 ML IV CONT (14:21)
[2021-12-02] MEDS: oxyCODONE/ACETAMINOPHEN (*CRX) 10-325 MG TABLET 1 TAB PO (19:28)
[2021-12-02] MEDS: traZODone HCL 50 MG TABLET PO (21:43)
[2021-12-03] VITALS (23 sets, daily range): BP systolic 98–117; BP diastolic 43–60; PULSE 63–89; RESP 14–26; TEMP 35.7–36.7; O2SAT 83–100
[2021-12-03] MEDS: oxyCODONE/ACETAMINOPHEN (*CRX) 10-325 MG TABLET 1 TAB PO ×4 (01:19→21:17)
[2021-12-03 04:47] LABS: Hematocrit 23.9 % (42.0-52.0); Hemoglobin 7.3 g/dL (14.0-18.0); Mean Corpuscular HGB Conc 30.5 g/dl (32-36); Mean Corpuscular Hemoglobin 26.7 pg (26-34); Mean Corpuscular Volume 87.5 fl (80-100); Mean Platelet Volume 10.1 fl (7.4-10.4); Platelet Count Result 208 k/mm3 (150-375); Red Blood Count 2.73 M/mm3 (4.6-6.20); Red Cell Distribution Width 16.6 % (11.5-14.5); White Blood Count 11.4 K/mm3 (4.5-10.0)
[2021-12-03 05:02] LABS: Alanine Aminotransferase 36 U/L (6-50); Albumin Level 2.7 g/dL (3.5-5.1); Alkaline Phosphatase 151 U/L (38-126); Anion Gap 8 mmol/L (8-16); Aspartate Amino Transferase 34 U/L (17-59); Bilirubin,Total 0.6 mg/dL (0.2-1.3); Blood Urea Nitrogen 13 mg/dL (9-20); Carbon Dioxide 26 mmol/L (22-30); Chloride 99 mmol/L (98-107); Estimated CRCL calculation 135 ml/min; Estimated Glomerular Filt Rate > 60; Glucose 194 mg/dL (65-110); Sodium 133 mmol/L (137-145)
[2021-12-03 05:39] LABS: Acanthocytes 1+ (NORMAL); Anisocytosis 2+ (NORMAL); Band Neutrophils Percent 5 % (0-6); Hypochromasia 2+ (NORMAL); Lymphocytes Absolute Manual 0.22 K/mm3 (1.1-4.5); Macrocytosis 1+ (NORMAL); Microcytosis 1+ (NORMAL); Neutrophils Absolute Manual 11.17 K/mm3 (1.3-6.7); Neutrophils Percent Manual 93 % (46-73); Ovalocytes 1+ (NORMAL); Platelet Estimate Adequate (Adequate); Spherocytes 1+ (NORMAL); Total Cells Counted 100
[2021-12-03 05:40] LABS: Burr Cells 1+ (NORMAL); Smudge Cells FEW
[2021-12-03] MEDS: CENTRAL LINE FLUSH 10 ML IV PUSH ×3 (06:16→20:52)
[2021-12-03] MEDS: LIDOCAINE 5% PATCH 1 PATCH TRANSDERM (08:35)
[2021-12-03] MEDS: PANTOPRAZOLE SODIUM IV 40 MG VIAL IV PUSH (08:37)
[2021-12-03] MEDS: BENZONATATE 100 MG CAPSULE 200 MG PO ×3 (08:37→17:17)
[2021-12-03] MEDS: predniSONE 20 MG TABLET 40 MG PO (08:38)
[2021-12-03] MEDS: GABAPENTIN 300 MG CAPSULE PO ×2 (08:38→17:17)
[2021-12-03] MEDS: ENOXAPARIN 40 MG/0.4 ML SYRINGE SUB-Q (08:38)
--- NOTE | 2021-12-03 08:59 | PCOTNOTE ---
Per RN, patient having difficulty breathing/maintaining O2 sats. Patient and RN requested therapist try again later to see patient for OT.
--- NOTE | 2021-12-03 09:48 | PM.PNPUL ---
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 This 66-year-old man presented with subacute illness that started approximately 2 weeks [employer]IP[employer] and was characterized by night sweats, dry cough, shortness of breath and low-grade fever.? Patient has been on antibiotic for possible pneumonia with no improvement.? ? The patient's symptoms are not quite typical for acute pneumonia.? The chest CT shows characteristic pattern bilaterally, with diffuse ground-glass opacities and some interlobular septal thickening.? The patient's clinical picture in conjunction with the chest CT findings suggest possible? chemotherapy-induced pneumonitis. ? Pneumocystis? Jiroveci? is less likely. The patient? has received? the PD-L1 inhibitor pembrolizumab and also trastuzumab which both can cause interstitial lung disease,? especially pembrolizumab.? the patient underwent bronchoscopy with BAL. On bronchoscopy his bronchial tubes appeared normal with no evidence of erythema, edema or bronchial secretions.? BAL was obtained from the right upper lobe and right middle lobe.? Cell count analysis showed mostly neutrophilic lavage.? Pneumocystis jiroveci C negative by DFA.? BAL cultures negative so far.? Bactrim has been discontinued. ? Today's chest x-ray showed partial clearing of bilateral infiltrates. 11/30 Plan: ? ? ? Will continue with supportive care supplemental oxygen, BiPAP support at night.? Continue with levofloxacin for now.? Will start patient on oral steroids starting in a.m. okay to transfer patient to [facility]. Was on 60 L and 45% and goes on BiPAP support at night.? Medrol 60 mg IV q.day. 12/01 Patient tells me that he continues to improve. His dry cough is 80% better. His chest tightness is better. He is on high-flow nasal cannula oxygen at 40 L and 45% FiO2 with saturations 93%. He tolerated BiPAP last night poorly. chest x-ray today demonstrates no change in his bilateral interstitial And alveolar infiltrates. Slow improvement in his oxygenation. Prednisone 40 mg p.o. q.day. Continue Levaquin, started 11 25. Patient has been afebrile since 11/27. The patient tolerated the tolerated BiPAP poorly last night and I would only use BiPAP if he fails high-flow nasal cannula. Prednisone 40 given. 12/02 Patient went without BiPAP last night. Continues to slowly improve. Currently is on high-flow nasal cannula 35 L and 40% FiO2 with saturations 90%. White blood cell count 10.8, creatinine 0.6, chest x-ray with unchanged diffuse interstitial alveolar infiltrates bilaterally. Prednisone 40 today. . slow improvement in his oxygenation. Will continue prednisone 40 mg q.day while monitoring for improvement. the literature suggests that the patient will likely require weeks to months of prednisone. 12/03 Patient went without BiPAP last night. was stable until 2:00 a.m. this morning when his high-flow nasal cannula settings were increased to 45 L and 60%. This morning he had a coughing paroxysm and on 40 L and 50% his saturations were in the mid to high 80s. Overall clinically there is no change from yesterday. White blood cell count is 11.4, creatinine is 0.5. CMV, urine Legionella, and urine pneumococcal antigen tests are negative. Levaquin day 9 and will DC Continue prednisone 40 mg p.o. today. Will monitor his clinical response to oral steroids. Will follow with you. Subjective Date/time seen: 12/03/21 09:48 Interval history: Consult date: 11/26/21 Chief complaint: acute respiratory failure with hypoxia,multifocal Narrative: This 66-year-old man presented with shortness of breath, fever, and cough.? The patient has history of esophageal carcinoma and has been treated with radiation therapy and currently has been on chemotherapy that star
--- NOTE | 2021-12-03 10:47 | PCFNICU ---
ICU Rounding Note: Pt current nutrition is Regular diet. Nutrition recommendation: Discontinue supplement as patient is eating 75-100% meals and is not drinking Ensure. Last recorded weight is 90.2 kg. Bowel Motility: +1 BM 11/30/21 Labs Reviewed: Hgb 7.3, Hct 23.9, Alb 2.7, Na 133, creat 0.6, Gluc 194 Meds Noted: Levaquin, Ceptra, Lovenox Skin: WNL Additional Notes: Agree with regular diet. Discontinue Ensure. Patient is agreeable. Encourage intakes. Following daily in ICU rounds. Will monitor every 5 days. .
[2021-12-03] MEDS: MAGNESIUM 13.5 MG TABLET (250 MG MAG GLUCONATE) PO ×2 (10:55→20:52)
[2021-12-03] MEDS: oxyCODONE/ACETAMINOPHEN (*CRX) 5-325 MG TABLET 1 TABLET PO ×2 (12:19→17:57)
--- NOTE | 2021-12-03 13:05 | PM.IMPN ---
Progress Note: A&P Assessment and Plan (1) Sepsis: Qualifiers: Sepsis acute organ dysfunction status: unspecified Sepsis type: sepsis due to unspecified organism Qualified Code(s): A41.9 - Sepsis, unspecified organism Code(s): A41.9 - Sepsis, unspecified organism Status: Acute (2) Multifocal pneumonia: Code(s): J18.9 - Pneumonia, unspecified organism Status: Acute (3) Hypoxemia: Code(s): R09.02 - Hypoxemia Status: Acute (4) Anemia associated with chemotherapy: Code(s): D64.81 - Anemia due to antineoplastic chemotherapy; T45.1X5A - Adverse effect of antineoplastic and immunosuppressive drugs, initial encounter Status: Acute (5) Gastroesophageal reflux disease: Code(s): K21.9 - Gastro-esophageal reflux disease without esophagitis Status: Acute (6) Primary adenocarcinoma of esophagus with metastasis: Onset Date: 05/23/21 Code(s): C15.9 - Malignant neoplasm of esophagus, unspecified Status: Acute (7) Hypertension: Code(s): I10 - Essential (primary) hypertension Status: Acute (8) Paroxysmal supraventricular tachycardia: Code(s): I47.1 - Supraventricular tachycardia Status: Acute Plan 11/25/21 Hypotension appears resolved, hemodynamically stable today, cont vanc, cefepime and azithromycin for PNA, f/u mycoplasma, legionella, s pneumo ab, all pending. Blood and urine cx pending. Due to increasing leuk and worsening clinical picture, cefepime d/c in favor of zosyn, azithromycin d/c in favor of levaquin, MRSA swab pending. Vanc trough was subtherapeutic, MRSA not suspected at this time, vanc d/c. Sputum cx showed normal hill. Blood cx NGTD. Continue broad-spectrum antibiotics as above, follow-up blood and urine cultures Echocardiogram done several weeks ago showed normal systolic and diastolic function Continue supplemental oxygen, anticipate this to improve as his pneumonia resolved with antibiotic therapy The patient had a blood transfusion last Wednesday due to symptomatic anemia and he is stable above 8.5 at this time. Monitor. Continue pantoprazole. Status post palliative radiation, now receiving palliative chemotherapy per Dr. Marx though he has not received treatment for several weeks due to ongoing anemia. Continue to hold antihypertensives, patient somewhat hypotensive NSR, holding BP meds d/t hypotension, will restart when able 11/26/21 pt still febrile abx changed without improvement remains on Venti will consult pulm for expert consultation cont current care Tylenol for fever 11/27/21 pt for bronch today suspected chemo therapy related pneumonitis cont venti mask (overnight pt briefly placed on NRB mask) cont current care pulm recs appreciated 11/28/21 pt fair condition Bronch showing no erythema in the trachea or bronchial tree may require intubation cont abx cont steroids atypical infections workup pending cont resp support w HFNC 50L/60% pulm and cc managing 11/29/21 stable to return to IMU cont on 60L /60% cont steroids cont levaquin and bactrim dc bactrim when P carini negative anticipate slow recovery 11/30/21 pt in IMU status pending bed availability remains stable on HFNC 60L/50% cxr slightly improved today cont steroids cont Levaquin Bactrim discontinued P carini negative appears to be pneumonitis associated w chemotherapy 12/01/21 pt improving O2 down to 40/45% remains on steroids cont Levaquin today pulm following recs appreciated 12/02/21 Patient went without BiPAP last night. Continues to slowly improve. Currently is on high-flow nasal cannula 35 L and 40% FiO2 with saturations 90%. CXR with unchanged diffuse interstitial alveolar infiltrates bilaterally. dc morphine [place] -> Percocet q 6 hrs 5 / 10 regimen lidocaine patch to back O2 requirements improving on steroids PT/OT pt is in IMU status pulm following 12/03/21 Patient went without BiPAP
[2021-12-03] MEDS: IRON SUCROSE COMPLEX 100 MG in SODIUM CHLORIDE 0.9% IV 50 ML 220 MG IVPB (15:20)
--- NOTE | 2021-12-03 15:31 | PC.NURSE ---
This patient, Jordi Segura Sr., was transferred to [facility] on 12/03/21 at 1512. Personal belongings sent with patient. Report given to Danae BAUGH. Appropriate documentation sent with patient.
[2021-12-03 15:58] LABS: Glucose Point of Care 237 mg/dl (65-105)
[2021-12-03] MEDS: INSULIN ASPART (*BKC) 100 UNITS/ML SUB-Q (17:20)
[2021-12-03 20:22] LABS: Glucose Point of Care 197 mg/dl (65-105)
[2021-12-03] MEDS: traZODone HCL 50 MG TABLET PO (21:18)
[2021-12-04] VITALS (22 sets, daily range): BP systolic 106–121; BP diastolic 43–54; PULSE 67–100; RESP 20–28; TEMP 36.3–36.7; O2SAT 74–100
--- NOTE | 2021-12-04 04:30 | PC.NURSE ---
Patient's oxygen saturation dropped to 69% on tele monitor. This RN went into room and found patient had pulled airvo off and was on room air. Airvo quickly placed on patient. Patient's saturations increased to 74%. FIO2 increased to 60% and patient instructed to take deep breaths. Patient stating he is short of breath. RT called and arrived in room. Dr. Kent called and made aware of situation. CXR ordered. Patient's FIO2 increased to 80%. Dr. Kent in room to see patient. Duo neb, solumedrol IVP and Lasix ordered. Patient's oxygen increased to 60L and 100% FIO2. Bipap ordered and placed.
[2021-12-04 04:46] LABS: Basophils Percent Auto 0.1 % (0.2-1.2); Eosinophils Absolute Auto 0.3 K/mm3 (0-0.3); Eosinophils Percent Auto 1.7 % (0-4.4); Hematocrit 27.1 % (42.0-52.0); Hemoglobin 8.3 g/dL (14.0-18.0); Immature Granulocyte Absolute 0.27 K/mm3 (0.00-0.031); Immature Granulocyte Percent A 1.7 % (0-0.5); Lymphocytes Absolute Auto 0.64 K/mm3 (0.9-3.2); Lymphocytes Percent Auto 3.9 % (18.3-44.2); Mean Corpuscular HGB Conc 30.6 g/dl (32-36); Mean Corpuscular Hemoglobin 26.6 pg (26-34); Mean Corpuscular Volume 86.9 fl (80-100); Mean Platelet Volume 10.2 fl (7.4-10.4); Monocytes Absolute Auto 0.5 K/mm3 (0.1-0.6); Monocytes Percent Auto 3.3 % (2.6-8.5); Neutrophils Absolute Auto 14.6 K/mm3 (1.3-6.7); Neutrophils Percent Auto 89.3 % (45.5-73.1); Nucleated Red Blood Cells Perc 0.1 % (0.0-0.2); Platelet Count Result 268 k/mm3 (150-375); Red Blood Count 3.12 M/mm3 (4.6-6.20); Red Cell Distribution Width 16.6 % (11.5-14.5); White Blood Count 16.3 K/mm3 (4.5-10.0)
[2021-12-04] MEDS: FUROSEMIDE INJ 40 MG/4 ML VIAL IV PUSH (04:46)
[2021-12-04] MEDS: methylPREDNISolone SOD SUCC 125 MG VIAL 80 MG IV PUSH (04:46)
[2021-12-04] MEDS: ALBUTEROL SULFATE NEB 2.5 MG/3 ML INH 1.25 MG INHALATION (04:58)
[2021-12-04] MEDS: IPRATROPIUM BR 0.02% INH SOLN 0.5 MG/2.5 ML VIAL INHALATION (04:58)
[2021-12-04 05:00] LABS: Hemoglobin A1C 5.1 % (<5.7)
[2021-12-04 05:03] LABS: Alanine Aminotransferase 31 U/L (6-50); Alkaline Phosphatase 140 U/L (38-126); Anion Gap 11 mmol/L (8-16); Aspartate Amino Transferase 24 U/L (17-59); Bilirubin,Total 0.6 mg/dL (0.2-1.3); Blood Urea Nitrogen 9 mg/dL (9-20); Calcium 8.1 mg/dL (8.4-10.2); Carbon Dioxide 29 mmol/L (22-30); Chloride 98 mmol/L (98-107); Estimated CRCL calculation 135 ml/min; Estimated Glomerular Filt Rate > 60; Glucose 101 mg/dL (65-110); Magnesium 2.2 mg/dL (1.6-2.3); Phosphorus 2.7 mg/dL (2.5-4.5); Potassium 3.7 mmol/L (3.4-5.0); Sodium 138 mmol/L (137-145)
[2021-12-04] MEDS: CENTRAL LINE FLUSH 10 ML IV PUSH ×2 (05:24→21:47)
[2021-12-04] MEDS: oxyCODONE/ACETAMINOPHEN (*CRX) 10-325 MG TABLET 1 TAB PO ×3 (06:40→20:31)
[2021-12-04 07:11] LABS: Anisocytosis 1+ (NORMAL); Hypochromasia 2+ (NORMAL); Ovalocytes 1+ (NORMAL); Platelet Estimate Adequate (Adequate); Poikilocytosis 1+ (NORMAL)
[2021-12-04 07:20] LABS: Glucose Point of Care 152 mg/dl (65-105)
[2021-12-04] MEDS: LIDOCAINE 5% PATCH 1 PATCH TRANSDERM (08:21)
[2021-12-04] MEDS: ENOXAPARIN 40 MG/0.4 ML SYRINGE SUB-Q (08:22)
[2021-12-04] MEDS: IRON SUCROSE COMPLEX 100 MG in SODIUM CHLORIDE 0.9% IV 50 ML 220 MG IVPB (08:22)
[2021-12-04] MEDS: predniSONE 20 MG TABLET 40 MG PO (08:23)
[2021-12-04] MEDS: BENZONATATE 100 MG CAPSULE 200 MG PO ×3 (08:23→18:08)
[2021-12-04] MEDS: GABAPENTIN 300 MG CAPSULE PO ×2 (08:24→18:08)
[2021-12-04] MEDS: PANTOPRAZOLE 40 MG TABLET PO (08:24)
[2021-12-04] MEDS: oxyCODONE/ACETAMINOPHEN (*CRX) 5-325 MG TABLET 1 TABLET PO (09:51)
[2021-12-04] MEDS: MAGNESIUM 13.5 MG TABLET (250 MG MAG GLUCONATE) PO ×2 (11:43→20:31)
--- NOTE | 2021-12-04 12:04 | P.PNIM_ITS ---
Progress Note: A&P Assessment and Plan (1) Acute respiratory failure with hypoxia: Code(s): J96.01 - Acute respiratory failure with hypoxia Status: Acute (2) Sepsis: Qualifiers: Sepsis acute organ dysfunction status: unspecified Sepsis type: sepsis due to unspecified organism Qualified Code(s): A41.9 - Sepsis, unspecified o rganism Code(s): A41.9 - Sepsis, unspecified organism Status: Acute (3) Multifocal pneumonia: Code(s): J18.9 - Pneumonia, unspecified organism Status: Acute (4) Pneumonitis: Code(s): J18.9 - Pneumonia, unspecified organism Status: Acute (5) Anemia associated with chemotherapy: Code(s): D64.81 - Anemia due to antineoplastic chemotherapy; T45.1X5A - Adverse effect of antineoplastic and immunosuppressive drugs, initial encounter Status: Acute (6) Primary adenocarcinoma of esophagus with metastasis: Onset Date: 05/23/21 Code(s): C15.9 - Malignant neoplasm of esophagus, unspecified Status: Acute (7) Hypertension: Code(s): I10 - Essential (primary) hypertension Status: Acute (8) Paroxysmal supraventricular tachycardia: Code(s): I47.1 - Supraventricular tachycardia Status: Acute (9) Gastroesophageal reflux disease: Code(s): K21.9 - Gastro-esophageal reflux disease without esophagitis Status: Acute Plan 11/25/21 Hypotension appears resolved, hemodynamically stable today, cont vanc, cefepime and azithromycin for PNA, f/u mycoplasma, legionella, s pneumo ab, all pending. Blood and urine cx pending. Due to increasing leuk and worsening clinical picture, cefepime d/c in favor of zosyn, azithromycin d/c in favor of levaquin, MRSA swab pending. Vanc trough was subtherapeutic, MRSA not suspected at this time, vanc d/c. Sputum cx showed normal hill. Blood cx NGTD. Continue broad-spectrum antibiotics as above, follow-up blood and urine cultures Echocardiogram done several weeks ago showed normal systolic and diastolic function Continue supplemental oxygen, anticipate this to improve as his pneumonia resolved with antibiotic therapy The patient had a blood transfusion last Wednesday due to symptomatic anemia and he is stable above 8.5 at this time. Monitor. Continue pantoprazole. Status post palliative radiation, now receiving palliative chemotherapy per Dr. Marx though he has not received treatment for several weeks due to ongoing anemia. Continue to hold antihypertensives, patient somewhat hypotensive NSR, holding BP meds d/t hypotension, will restart when able 11/26/21 pt still febrile abx changed without improvement remains on Venti will consult pulm for expert consultation cont current care Tylenol for fever 11/27/21 pt for bronch today suspected chemo therapy related pneumonitis cont venti mask (overnight pt briefly placed on NRB mask) cont current care pulm recs appreciated 11/28/21 pt fair condition Bronch showing no erythema in the trachea or bronchial tree may require intubation cont abx cont steroids atypical infections workup pending cont resp support w HFNC 50L/60% pulm and cc managing 11/29/21 stable to return to IMU cont on 60L /60% cont steroids cont levaquin and bactrim dc bactrim when P carini negative anticipate slow recovery 11/30/21 pt in IMU status pending bed availability remains stable on HFNC 60L/50% cxr slightly improved today cont steroids cont Levaquin Bactrim discontinued P carini negative appears to be pneumonitis associated w chemot
[2021-12-04 12:50] LABS: Glucose Point of Care 419 mg/dl (65-105)
[2021-12-04 12:50] LABS: Glucose Point of Care 400 mg/dl (65-105)
[2021-12-04] MEDS: INSULIN ASPART (*BKC) 100 UNITS/ML SUB-Q ×2 (12:55→18:08)
--- NOTE | 2021-12-04 13:59 | PCPTNOTE ---
Attempted to see patient for PT this afternoon, however patient declined. Patient reported he feels today is not a good day for therapy and that he had a rough night last night. Patient requested therapy come back tomorrow.
--- NOTE | 2021-12-04 14:13 | PC.NURSE ---
On 12/04/21, the student, [Venita Ron], provided care and completed [facility] documentation on this patient. I have reviewed the student's documentation and agree with the findings.
[2021-12-04 17:01] LABS: Glucose Point of Care 313 mg/dl (65-105)
[2021-12-04] MEDS: traMADol HCL (*CRX) 25 MG TABLET PO (18:10)
[2021-12-04 20:11] LABS: Glucose Point of Care 291 mg/dl (65-105)
[2021-12-04] MEDS: traZODone HCL 50 MG TABLET PO (21:38)
[2021-12-05] VITALS (17 sets, daily range): BP systolic 100–124; BP diastolic 40–50; PULSE 61–87; RESP 18–26; TEMP 36–36.8; O2SAT 92–100
[2021-12-05] MEDS: oxyCODONE/ACETAMINOPHEN (*CRX) 10-325 MG TABLET 1 TAB PO ×4 (02:10→20:16)
[2021-12-05] MEDS: CENTRAL LINE FLUSH 10 ML IV PUSH ×2 (05:51→22:34)
[2021-12-05] MEDS: traMADol HCL (*CRX) 25 MG TABLET PO (06:08)
[2021-12-05 06:12] LABS: Basophils Percent Auto 0.1 % (0.2-1.2); Eosinophils Absolute Auto 0.1 K/mm3 (0-0.3); Eosinophils Percent Auto 0.4 % (0-4.4); Hematocrit 24.1 % (42.0-52.0); Hemoglobin 7.2 g/dL (14.0-18.0); Immature Granulocyte Absolute 0.29 K/mm3 (0.00-0.031); Immature Granulocyte Percent A 1.5 % (0-0.5); Lymphocytes Percent Auto 2.1 % (18.3-44.2); Mean Corpuscular HGB Conc 29.9 g/dl (32-36); Mean Corpuscular Hemoglobin 26.7 pg (26-34); Mean Corpuscular Volume 89.3 fl (80-100); Mean Platelet Volume 10.3 fl (7.4-10.4); Monocytes Absolute Auto 0.8 K/mm3 (0.1-0.6); Neutrophils Absolute Auto 17.3 K/mm3 (1.3-6.7); Neutrophils Percent Auto 91.9 % (45.5-73.1); Platelet Count Result 239 k/mm3 (150-375); Red Cell Distribution Width 16.8 % (11.5-14.5); White Blood Count 18.8 K/mm3 (4.5-10.0)
[2021-12-05 06:17] LABS: Alanine Aminotransferase 25 U/L (6-50); Albumin Level 2.7 g/dL (3.5-5.1); Alkaline Phosphatase 128 U/L (38-126); Anion Gap 9 mmol/L (8-16); Aspartate Amino Transferase 19 U/L (17-59); Bilirubin,Total 0.6 mg/dL (0.2-1.3); Blood Urea Nitrogen 14 mg/dL (9-20); Calcium 8.1 mg/dL (8.4-10.2); Carbon Dioxide 31 mmol/L (22-30); Chloride 97 mmol/L (98-107); Estimated CRCL calculation 135 ml/min; Estimated Glomerular Filt Rate > 60; Glucose 128 mg/dL (65-110); Potassium 4.1 mmol/L (3.4-5.0); Sodium 137 mmol/L (137-145)
[2021-12-05 07:34] LABS: Anisocytosis 1+ (NORMAL); Platelet Estimate Adequate (Adequate)
[2021-12-05] MEDS: predniSONE 20 MG TABLET 40 MG PO (08:19)
[2021-12-05] MEDS: BENZONATATE 100 MG CAPSULE 200 MG PO ×3 (08:21→18:13)
[2021-12-05] MEDS: GABAPENTIN 300 MG CAPSULE PO ×2 (08:22→18:13)
[2021-12-05] MEDS: ENOXAPARIN 40 MG/0.4 ML SYRINGE SUB-Q (08:22)
[2021-12-05] MEDS: PANTOPRAZOLE 40 MG TABLET PO (08:23)
[2021-12-05] MEDS: LIDOCAINE 5% PATCH 1 PATCH TRANSDERM (08:23)
[2021-12-05 08:42] LABS: Glucose Point of Care 149 mg/dl (65-105)
[2021-12-05 12:29] LABS: Glucose Point of Care 255 mg/dl (65-105)
[2021-12-05] MEDS: MAGNESIUM 13.5 MG TABLET (250 MG MAG GLUCONATE) PO ×2 (13:53→20:16)
[2021-12-05] MEDS: INSULIN ASPART (*BKC) 100 UNITS/ML SUB-Q ×2 (13:53→18:13)
--- NOTE | 2021-12-05 14:49 | P.PNPL_ITS ---
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 Patient has been on antibiotic for possible pneumonia with no improvement.? ? The patient's symptoms are not quite typical for acute pneumonia.? The chest CT shows characteristic pattern bilaterally, with diffuse ground-glass opacities and some interlobular septal thickening.? The patient's clinical picture in conjunction with the chest CT findings suggest possible? chemotherapy-induced pneumonitis. ? Pneumocystis? Jiroveci? is less likely. The patient? has received? the PD-L1 inhibitor pembrolizumab and also trastuzumab which both can cause interstitial lung disease,? especially pembroli zumab.? the patient underwent bronchoscopy with BAL. On bronchoscopy his bronchial tubes appeared normal with no evidence of erythema, edema or bronchial secretions.? BAL was obtained from the right upper lobe and right middle lobe.? Cell count analysis showed mostly neutrophilic lavage.? Pneumocystis jiroveci C negative by DFA.? BAL cultures negative so far.? Bactrim has been discontinued. ? Today's chest x-ray showed partial clearing of bilateral infiltrates. 11/30 Plan: ? ? ? Will continue with supportive care supplemental oxygen, BiPAP support at night.? Continue with levofloxacin for now.? Will start patient on oral steroids starting in a.m. okay to transfer patient to [facility]. Was on 60 L and 45% and goes on BiPAP support at night.? Medrol 60 mg IV q.day. 12/01 Patient tells me that he continues to improve. His dry cough is 80% better. His chest tightness is better. He is on high-flow nasal cannula oxygen at 40 L and 45% FiO2 with saturations 93%. He tolerated BiPAP last night poorly. chest x-ray today demonstrates no change in his bilateral interstitial And alveolar infiltrates. Slow improvement in his oxygenation. Prednisone 40 mg p.o. q.day. Continue Levaquin, started 11 25. Patient has been afebrile since 11/27. The patient tolerated the tolerated BiPAP poorly last night and I would only use BiPAP if he fails high-flow nasal cannula. Prednisone 40 given. 12/02 Patient went without BiPAP last night. Continues to slowly improve. Currently is on high-flow nasal cannula 35 L and 40% FiO2 with saturations 90%. White blood cell count 10.8, creatinine 0.6, chest x-ray with unchanged diffuse interstitial alveolar infiltrates bilaterally. Prednisone 40 today. . slow improvement in his oxygenation. Will continue prednisone 40 mg q.day while monitoring for improvement. the literature suggests that the patient will likely require weeks to months of prednisone. 12/03 Patient went without BiPAP last night. was stable until 2:00 a.m. this morning when his high-flow nasal cannula settings were increased to 45 L and 60%. This morning he had a coughing paroxysm and on 40 L and 50% his saturations were in the mid to high 80s. Overall clinically there is no change from yesterday. White blood cell count is 11.4, creatinine is 0.5. CMV, urine Legionella, and urine pneumococcal antigen tests are negative. Avi day 9 and will DC Continue prednisone 40 mg p.o. today. Will monitor his clinical response to oral steroids. 12/04 patient was stable until early this morning when he developed worsening hypoxia requiring increase in high-flow nasal cannula oxygen and then he was found off his high flow with low
--- NOTE | 2021-12-05 15:38 | PCOTNOTE ---
Pt. displaying decreased rate of progression in therapy services, frequency of services decreased to 2-3 times /week
[2021-12-05 16:54] LABS: Glucose Point of Care 291 mg/dl (65-105)
--- NOTE | 2021-12-05 17:19 | PM.IMPN ---
Progress Note: A&P Assessment and Plan (1) Acute respiratory failure with hypoxia: Code(s): J96.01 - Acute respiratory failure with hypoxia Status: Acute (2) Sepsis: Qualifiers: Sepsis acute organ dysfunction status: unspecified Sepsis type: sepsis due to unspecified organism Qualified Code(s): A41.9 - Sepsis, unspecified organism Code(s): A41.9 - Sepsis, unspecified organism Status: Acute (3) Multifocal pneumonia: Code(s): J18.9 - Pneumonia, unspecified organism Status: Acute (4) Pneumonitis: Code(s): J18.9 - Pneumonia, unspecified organism Status: Acute (5) Anemia associated with chemotherapy: Code(s): D64.81 - Anemia due to antineoplastic chemotherapy; T45.1X5A - Adverse effect of antineoplastic and immunosuppressive drugs, initial encounter Status: Acute (6) Primary adenocarcinoma of esophagus with metastasis: Onset Date: 05/23/21 Code(s): C15.9 - Malignant neoplasm of esophagus, unspecified Status: Acute (7) Hypertension: Code(s): I10 - Essential (primary) hypertension Status: Acute (8) Paroxysmal supraventricular tachycardia: Code(s): I47.1 - Supraventricular tachycardia Status: Acute (9) Gastroesophageal reflux disease: Code(s): K21.9 - Gastro-esophageal reflux disease without esophagitis Status: Acute Plan 11/25/21 Hypotension appears resolved, hemodynamically stable today, cont vanc, cefepime and azithromycin for PNA, f/u mycoplasma, legionella, s pneumo ab, all pending. Blood and urine cx pending. Due to increasing leuk and worsening clinical picture, cefepime d/c in favor of zosyn, azithromycin d/c in favor of levaquin, MRSA swab pending. Vanc trough was subtherapeutic, MRSA not suspected at this time, vanc d/c. Sputum cx showed normal hill. Blood cx NGTD. Continue broad-spectrum antibiotics as above, follow-up blood and urine cultures Echocardiogram done several weeks ago showed normal systolic and diastolic function Continue supplemental oxygen, anticipate this to improve as his pneumonia resolved with antibiotic therapy The patient had a blood transfusion last Wednesday due to symptomatic anemia and he is stable above 8.5 at this time. Monitor. Continue pantoprazole. Status post palliative radiation, now receiving palliative chemotherapy per Dr. Marx though he has not received treatment for several weeks due to ongoing anemia. Continue to hold antihypertensives, patient somewhat hypotensive NSR, holding BP meds d/t hypotension, will restart when able 11/26/21 pt still febrile abx changed without improvement remains on Venti will consult pulm for expert consultation cont current care Tylenol for fever 11/27/21 pt for bronch today suspected chemo therapy related pneumonitis cont venti mask (overnight pt briefly placed on NRB mask) cont current care pulm recs appreciated 11/28/21 pt fair condition Bronch showing no erythema in the trachea or bronchial tree may require intubation cont abx cont steroids atypical infections workup pending cont resp support w HFNC 50L/60% pulm and cc managing 11/29/21 stable to return to IMU cont on 60L /60% cont steroids cont levaquin and bactrim dc bactrim when P carini negative anticipate slow recovery 11/30/21 pt in IMU status pending bed availability remains stable on HFNC 60L/50% cxr slightly improved today cont steroids cont Levaquin Bactrim discontinued P carini negative appears to be pneumonitis associated w chemotherapy 12/01/21 pt improving O2 down to 40/45% remains on steroids cont Levaquin today pulm following recs appreciated 12/02/21 Patient went without BiPAP last night. Continues to slowly improve. Currently is on high-flow nasal cannula 35 L and 40% FiO2 with saturations 90%. CXR with unchanged diffuse interstitial alveolar infiltrates bilaterally. dc morphine [place] -> Percocet q 6 hrs imelda
[2021-12-05 20:24] LABS: Glucose Point of Care 293 mg/dl (65-105)
[2021-12-06] VITALS (32 sets, daily range): BP systolic 105–129; BP diastolic 41–70; PULSE 61–92; RESP 14–26; TEMP 36–36.8; O2SAT 40–100
[2021-12-06] MEDS: traZODone HCL 50 MG TABLET PO ×2 (00:11→23:16)
[2021-12-06] MEDS: oxyCODONE/ACETAMINOPHEN (*CRX) 10-325 MG TABLET 1 TAB PO ×4 (02:16→21:04)
[2021-12-06 04:38] LABS: Hematocrit 26.2 % (42.0-52.0); Hemoglobin 7.8 g/dL (14.0-18.0); Mean Corpuscular HGB Conc 29.8 g/dl (32-36); Mean Corpuscular Hemoglobin 26.5 pg (26-34); Mean Corpuscular Volume 89.1 fl (80-100); Mean Platelet Volume 9.8 fl (7.4-10.4); Platelet Count Result 259 k/mm3 (150-375); Red Blood Count 2.94 M/mm3 (4.6-6.20); Red Cell Distribution Width 17.2 % (11.5-14.5); White Blood Count 20.9 K/mm3 (4.5-10.0)
[2021-12-06 04:56] LABS: Eosinophils Percent Manual 1 % (0-4); Lymphocytes Absolute Manual 1.04 K/mm3 (1.1-4.5); Lymphocytes Percent Manual 5 % (18-44); Monocytes Absolute Manual 1.88 K/mm3 (0.1-0.90); Monocytes Percent Manual 9 % (3-9); Neutrophils Percent Manual 85 % (46-73); Platelet Estimate Adequate (Adequate); Total Cells Counted 100
[2021-12-06 04:56] LABS: Alanine Aminotransferase 25 U/L (6-50); Alkaline Phosphatase 139 U/L (38-126); Anion Gap 9 mmol/L (8-16); Aspartate Amino Transferase 28 U/L (17-59); Bilirubin,Total 0.6 mg/dL (0.2-1.3); Blood Urea Nitrogen 13 mg/dL (9-20); Calcium 8.3 mg/dL (8.4-10.2); Carbon Dioxide 33 mmol/L (22-30); Chloride 94 mmol/L (98-107); Estimated CRCL calculation 135 ml/min; Estimated Glomerular Filt Rate > 60; Glucose 115 mg/dL (65-110); Magnesium 2.1 mg/dL (1.6-2.3); Phosphorus 2.8 mg/dL (2.5-4.5); Potassium 4.3 mmol/L (3.4-5.0); Sodium 136 mmol/L (137-145)
[2021-12-06 04:57] LABS: Anisocytosis 1+ (NORMAL)
[2021-12-06 07:50] LABS: Glucose Point of Care 92 mg/dl (65-105)
[2021-12-06] MEDS: PANTOPRAZOLE 40 MG TABLET PO (08:23)
[2021-12-06] MEDS: GABAPENTIN 300 MG CAPSULE PO ×2 (08:23→16:28)
[2021-12-06] MEDS: predniSONE 20 MG TABLET 40 MG PO (08:23)
[2021-12-06] MEDS: BENZONATATE 100 MG CAPSULE 200 MG PO ×3 (08:23→16:28)
[2021-12-06] MEDS: MAGNESIUM 13.5 MG TABLET (250 MG MAG GLUCONATE) PO ×2 (08:23→21:04)
[2021-12-06] MEDS: ENOXAPARIN 40 MG/0.4 ML SYRINGE SUB-Q (08:24)
[2021-12-06] MEDS: LIDOCAINE 5% PATCH 1 PATCH TRANSDERM (08:24)
[2021-12-06] MEDS: CENTRAL LINE FLUSH 10 ML IV PUSH ×3 (08:26→21:05)
[2021-12-06] MEDS: ALBUTEROL SULFATE (*SP) AEROSOL 1 PUFF 2 PUFF INHALATION ×2 (08:45→14:08)
--- NOTE | 2021-12-06 10:42 | PCPTNOTE ---
Attempt was made to see pt for physical therapy. Pt stated his morning was not good and asked that I check back later today. Will make second attempt this afternoon.
[2021-12-06 12:02] LABS: Glucose Point of Care 184 mg/dl (65-105)
[2021-12-06] MEDS: FUROSEMIDE INJ 40 MG/4 ML VIAL 20 MG IV PUSH (12:44)
--- NOTE | 2021-12-06 15:37 | PM.PNPUL ---
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 Patient has been on antibiotic for possible pneumonia with no improvement.? ? The patient's symptoms are not quite typical for acute pneumonia.? The chest CT shows characteristic pattern bilaterally, with diffuse ground-glass opacities and some interlobular septal thickening.? The patient's clinical picture in conjunction with the chest CT findings suggest possible? chemotherapy-induced pneumonitis. ? Pneumocystis? Jiroveci? is less likely. The patient? has received? the PD-L1 inhibitor pembrolizumab and also trastuzumab which both can cause interstitial lung disease,? especially pembrolizumab.? the patient underwent bronchoscopy with BAL. On bronchoscopy his bronchial tubes appeared normal with no evidence of erythema, edema or bronchial secretions.? BAL was obtained from the right upper lobe and right middle lobe.? Cell count analysis showed mostly neutrophilic lavage.? Pneumocystis jiroveci C negative by DFA.? BAL cultures negative so far.? Bactrim has been discontinued. ? Today's chest x-ray showed partial clearing of bilateral infiltrates. 11/30 Plan: ? ? ? Will continue with supportive care supplemental oxygen, BiPAP support at night.? Continue with levofloxacin for now.? Will start patient on oral steroids starting in a.m. okay to transfer patient to [facility]. Was on 60 L and 45% and goes on BiPAP support at night.? Medrol 60 mg IV q.day. 12/01 Patient tells me that he continues to improve. His dry cough is 80% better. His chest tightness is better. He is on high-flow nasal cannula oxygen at 40 L and 45% FiO2 with saturations 93%. He tolerated BiPAP last night poorly. chest x-ray today demonstrates no change in his bilateral interstitial And alveolar infiltrates. Slow improvement in his oxygenation. Prednisone 40 mg p.o. q.day. Continue Levaquin, started 11 25. Patient has been afebrile since 11/27. The patient tolerated the tolerated BiPAP poorly last night and I would only use BiPAP if he fails high-flow nasal cannula. Prednisone 40 given. 12/02 Patient went without BiPAP last night. Continues to slowly improve. Currently is on high-flow nasal cannula 35 L and 40% FiO2 with saturations 90%. White blood cell count 10.8, creatinine 0.6, chest x-ray with unchanged diffuse interstitial alveolar infiltrates bilaterally. Prednisone 40 today. . Slow improvement in his oxygenation. Will continue prednisone 40 mg q.day while monitoring for improvement. the literature suggests that the patient will likely require weeks to months of prednisone. 12/03 Patient went without BiPAP last night. was stable until 2:00 a.m. this morning when his high-flow nasal cannula settings were increased to 45 L and 60%. This morning he had a coughing paroxysm and on 40 L and 50% his saturations were in the mid to high 80s. Overall clinically there is no change from yesterday. White blood cell count is 11.4, creatinine is 0.5. CMV, urine Legionella, and urine pneumococcal antigen tests are negative. Levtheresauin day 9 and will DC Continue prednisone 40 mg p.o. today. Will monitor his clinical response to oral steroids. 12/04 patient was stable until early this morning when he developed worsening hypoxia requiring increase in high-flow nasal cannula oxygen and then he was found off his high flow with low saturations and placed on BiPAP. Cross coverage gave him Solu-Medrol 80 mg IV push. Patient wore the BiPAP from approximately 430-8 a.m.. Chest x-ray shows unchanged diffuse interstitial and alveolar infiltrates.When I saw him
[2021-12-06 17:05] LABS: Glucose Point of Care 310 mg/dl (65-105)
[2021-12-06] MEDS: INSULIN ASPART (*BKC) 100 UNITS/ML SUB-Q (17:20)
[2021-12-06 19:59] LABS: Glucose Point of Care 281 mg/dl (65-105)
[2021-12-07] VITALS (20 sets, daily range): BP systolic 106–123; BP diastolic 42–53; PULSE 70–101; RESP 18–22; TEMP 36.1–36.4; O2SAT 60–100
[2021-12-07] MEDS: CENTRAL LINE FLUSH 10 ML IV PUSH ×3 (05:20→21:16)
[2021-12-07 05:35] LABS: Basophils Percent Auto 0.1 % (0.2-1.2); Eosinophils Absolute Auto 0.1 K/mm3 (0-0.3); Eosinophils Percent Auto 0.4 % (0-4.4); Hematocrit 25.3 % (42.0-52.0); Hemoglobin 7.6 g/dL (14.0-18.0); Immature Granulocyte Absolute 0.23 K/mm3 (0.00-0.031); Immature Granulocyte Percent A 1.1 % (0-0.5); Lymphocytes Absolute Auto 0.39 K/mm3 (0.9-3.2); Lymphocytes Percent Auto 1.9 % (18.3-44.2); Mean Corpuscular Hemoglobin 26.7 pg (26-34); Mean Corpuscular Volume 88.8 fl (80-100); Mean Platelet Volume 10.3 fl (7.4-10.4); Monocytes Absolute Auto 0.8 K/mm3 (0.1-0.6); Neutrophils Percent Auto 92.5 % (45.5-73.1); Platelet Count Result 186 k/mm3 (150-375); Red Blood Count 2.85 M/mm3 (4.6-6.20); Red Cell Distribution Width 17.7 % (11.5-14.5); White Blood Count 20.6 K/mm3 (4.5-10.0)
[2021-12-07 06:00] LABS: Alanine Aminotransferase 23 U/L (6-50); Albumin Level 2.7 g/dL (3.5-5.1); Alkaline Phosphatase 167 U/L (38-126); Anion Gap 6 mmol/L (8-16); Aspartate Amino Transferase 24 U/L (17-59); Bilirubin,Total 0.5 mg/dL (0.2-1.3); Blood Urea Nitrogen 15 mg/dL (9-20); Carbon Dioxide 35 mmol/L (22-30); Chloride 94 mmol/L (98-107); Estimated CRCL calculation 135 ml/min; Estimated Glomerular Filt Rate > 60; Glucose 112 mg/dL (65-110); Potassium 4.2 mmol/L (3.4-5.0); Sodium 135 mmol/L (137-145)
[2021-12-07 08:20] LABS: Glucose Point of Care 97 mg/dl (65-105)
[2021-12-07] MEDS: oxyCODONE/ACETAMINOPHEN (*CRX) 10-325 MG TABLET 1 TAB PO ×3 (09:28→22:14)
[2021-12-07] MEDS: PANTOPRAZOLE 40 MG TABLET PO (09:30)
[2021-12-07] MEDS: LIDOCAINE 5% PATCH 1 PATCH TRANSDERM (09:30)
[2021-12-07] MEDS: BENZONATATE 100 MG CAPSULE 200 MG PO ×3 (09:31→16:29)
[2021-12-07] MEDS: GABAPENTIN 300 MG CAPSULE PO ×2 (09:31→16:28)
[2021-12-07] MEDS: predniSONE 20 MG TABLET 40 MG PO (09:32)
[2021-12-07] MEDS: ENOXAPARIN 40 MG/0.4 ML SYRINGE SUB-Q (09:32)
--- NOTE | 2021-12-07 09:47 | PM.IMPN ---
Progress Note: A&P Assessment and Plan (1) Acute respiratory failure with hypoxia: Code(s): J96.01 - Acute respiratory failure with hypoxia Status: Acute (2) Sepsis: Qualifiers: Sepsis acute organ dysfunction status: unspecified Sepsis type: sepsis due to unspecified organism Qualified Code(s): A41.9 - Sepsis, unspecified organism Code(s): A41.9 - Sepsis, unspecified organism Status: Acute (3) Multifocal pneumonia: Code(s): J18.9 - Pneumonia, unspecified organism Status: Acute (4) Pneumonitis: Code(s): J18.9 - Pneumonia, unspecified organism Status: Acute (5) Anemia associated with chemotherapy: Code(s): D64.81 - Anemia due to antineoplastic chemotherapy; T45.1X5A - Adverse effect of antineoplastic and immunosuppressive drugs, initial encounter Status: Acute (6) Primary adenocarcinoma of esophagus with metastasis: Onset Date: 05/23/21 Code(s): C15.9 - Malignant neoplasm of esophagus, unspecified Status: Acute (7) Paroxysmal supraventricular tachycardia: Code(s): I47.1 - Supraventricular tachycardia Status: Acute (8) Hypertension: Code(s): I10 - Essential (primary) hypertension Status: Acute Plan 11/25/21 Hypotension appears resolved, hemodynamically stable today, cont vanc, cefepime and azithromycin for PNA, f/u mycoplasma, legionella, s pneumo ab, all pending. Blood and urine cx pending. Due to increasing leuk and worsening clinical picture, cefepime d/c in favor of zosyn, azithromycin d/c in favor of levaquin, MRSA swab pending. Vanc trough was subtherapeutic, MRSA not suspected at this time, vanc d/c. Sputum cx showed normal hill. Blood cx NGTD. Continue broad-spectrum antibiotics as above, follow-up blood and urine cultures Echocardiogram done several weeks ago showed normal systolic and diastolic function Continue supplemental oxygen, anticipate this to improve as his pneumonia resolved with antibiotic therapy The patient had a blood transfusion last Wednesday due to symptomatic anemia and he is stable above 8.5 at this time. Monitor. Continue pantoprazole. Status post palliative radiation, now receiving palliative chemotherapy per Dr. Marx though he has not received treatment for several weeks due to ongoing anemia. Continue to hold antihypertensives, patient somewhat hypotensive NSR, holding BP meds d/t hypotension, will restart when able 11/26/21 pt still febrile abx changed without improvement remains on Venti will consult pulm for expert consultation cont current care Tylenol for fever 11/27/21 pt for bronch today suspected chemo therapy related pneumonitis cont venti mask (overnight pt briefly placed on NRB mask) cont current care pulm recs appreciated 11/28/21 pt fair condition Bronch showing no erythema in the trachea or bronchial tree may require intubation cont abx cont steroids atypical infections workup pending cont resp support w HFNC 50L/60% pulm and cc managing 11/29/21 stable to return to IMU cont on 60L /60% cont steroids cont levaquin and bactrim dc bactrim when P carini negative anticipate slow recovery 11/30/21 pt in IMU status pending bed availability remains stable on HFNC 60L/50% cxr slightly improved today cont steroids cont Levaquin Bactrim discontinued P carini negative appears to be pneumonitis associated w chemotherapy 12/01/21 pt improving O2 down to 40/45% remains on steroids cont Levaquin today pulm following recs appreciated 12/02/21 Patient went without BiPAP last night. Continues to slowly improve. Currently is on high-flow nasal cannula 35 L and 40% FiO2 with saturations 90%. CXR with unchanged diffuse interstitial alveolar infiltrates bilaterally. dc morphine [place] -> Percocet q 6 hrs 5 / 10 regimen lidocaine patch to back O2 requirements improving on steroids PT/OT pt is in IMU status pulm following 12/03/21 Patient we
[2021-12-07] MEDS: FUROSEMIDE INJ 40 MG/4 ML VIAL 20 MG IV PUSH (12:40)
[2021-12-07] MEDS: MAGNESIUM 13.5 MG TABLET (250 MG MAG GLUCONATE) PO ×2 (12:41→21:12)
[2021-12-07 12:49] LABS: Glucose Point of Care 275 mg/dl (65-105)
[2021-12-07] MEDS: INSULIN ASPART (*BKC) 100 UNITS/ML SUB-Q ×2 (13:07→17:19)
[2021-12-07 17:07] LABS: Glucose Point of Care 267 mg/dl (65-105)
--- NOTE | 2021-12-07 17:47 | PM.TDS ---
Transfer Discharge Sum: Prov Provider Date of admission: 11/24/21 14:24 Primary care physician: Myron Ward, Admitting clinician: Blayne Willams MD Consults: 11/26/21 Consult to Physician Routine Comment: Consulting Provider: Gurmeet Cordoba Reason for consultation: PNA resp failure Has provider been notified: No 11/27/21 Consult to Physician Routine Comment: Consulting Provider: Lucas Marte Reason for consultation: respiratory failure, icu admit Has provider been notified: Yes 11/28/21 Consult to Physician Routine Comment: Consulting Provider: Dean Marx Reason for consultation: CANCER PATIENT Has provider been notified: Yes 12/04/21 08:38 Consult Infectious Disease Pharmacist Routine Comment: BAL with aspirgillus species Attending physician on discharge: Tye Nichole Anticipated date of transfer: 12/07/21 Receiving physician/facility: [facility] DS: Admitting Diagnosis Discharge Date 12/07/21 Admitting Diagnosis 66yo male with hx of esophageal CA with mets to the liver undergoing XRT and chemo, anemia, and pSVT here for SOB, fever, and cough.?Please see H&P for details DS: Discharge Diagnosis Discharge Diagnosis (1) Acute respiratory failure with hypoxia: Code(s): J96.01 - Acute respiratory failure with hypoxia Status: Acute (2) Sepsis: Qualifiers: Sepsis acute organ dysfunction status: unspecified Sepsis type: sepsis due to unspecified organism Qualified Code(s): A41.9 - Sepsis, unspecified organism Code(s): A41.9 - Sepsis, unspecified organism Status: Acute (3) Multifocal pneumonia: Code(s): J18.9 - Pneumonia, unspecified organism Status: Acute (4) Pneumonitis: Code(s): J18.9 - Pneumonia, unspecified organism Status: Acute (5) Anemia associated with chemotherapy: Code(s): D64.81 - Anemia due to antineoplastic chemotherapy; T45.1X5A - Adverse effect of antineoplastic and immunosuppressive drugs, initial encounter Status: Acute (6) Primary adenocarcinoma of esophagus with metastasis: Onset Date: 05/23/21 Code(s): C15.9 - Malignant neoplasm of esophagus, unspecified Status: Acute (7) Paroxysmal supraventricular tachycardia: Code(s): I47.1 - Supraventricular tachycardia Status: Acute (8) Hypertension: Code(s): I10 - Essential (primary) hypertension Status: Acute Transfer Discharge Sum: Med Medications Active and Home Medications: Home Medications aspirin 81 mg tablet 81 mg PO DAILY 06/04/21 [History Confirmed 11/27/21] magnesium 250 mg tablet 250 mg PO BID 06/04/21 [History Confirmed 11/27/21] pantoprazole 40 mg tablet,delayed release 40 mg PO HS PRN Heartburn 06/04/21 [History Confirmed 11/27/21] atenolol 100 mg tablet 50 mg BID 11/23/21 [History Confirmed 11/27/21] diltiazem HCl 300 mg capsule,extended release 24 hr 300 mg PO DAILY 11/23/21 [History Confirmed 11/27/21] gabapentin 300 mg capsule 300 mg PO BID 11/23/21 [History Confirmed 11/27/21] hydrocodone 7.5 mg-acetaminophen 325 mg tablet 7.5 - 325 tablet PO TID 11/23/21 [History Confirmed 11/27/21] ondansetron 8 mg disintegrating tablet 4 mg PO Q8H PRN nausea 11/23/21 [History Confirmed 11/27/21] potassium chloride 20 mEq tablet,extended release(part/cryst) 20 meq PO DAILY 11/23/21 [History Confirmed 11/27/21] trazodone 50 mg tablet 50 mg PO HS 11/23/21 [History Confirmed 11/27/21] Active Medications Acetaminophen (Acetaminophen 325 Mg Tablet) 650 mg PO Q6H PRN PRN Reason: Mild Pain (1-3) or Fever Last Admin: 11/27/21 06:01 Dose: 650 mg Albuterol (Albuterol Sulfate (*Sp) Aerosol 1 Puff) 2 puff INHALATION QIDRT PRN PRN Reason: Shortness Of Breath Last Admin: 12/06/21 14:08 Dose: 2 puff Benzonatate (Benzonatate 100 Mg Capsule) 200 mg PO TID [facility] Last Admin: 12/07/21 16:29 Dose: 200 mg Dextrose (Dextrose 50% 25 Gm/50 Ml Syringe) 12.5 gm IV
--- NOTE | 2021-12-07 19:45 | PC.NURSE ---
I, Nelsy Nash ARCHITECT MARINE agree with all charting Shanelle Vo preceptee did on this patient.
[2021-12-07 19:48] LABS: Glucose Point of Care 234 mg/dl (65-105)
[2021-12-07] MEDS: traMADol HCL (*CRX) 25 MG TABLET PO (21:11)
--- NOTE | 2021-12-25 12:39 | PC.NURSE ---
Fungal cx is negative. Dr. Dionisio lambert.
--- NOTE | 2022-01-12 12:09 | PC.NURSE ---
AFB is negative. Dr. Dionisio lambert.
== END 2021-12-07 22:37 | disposition short-term general hospital (02) | DRG 871 ==
LOC: ANHED 12:33 → ANH2MED 13:01 → ANHIMU 11-27 12:58 → ANHICU 11-27 13:39 → ANHIMU 12-03 15:17
PROVIDERS: Internal Medicine; Internal Medicine Hematology & Oncology; Internal Medicine Pulmonary Disease; Physician Assistant; Student in an Organized Health Care Education/Training Program; Admitting Provider Chiropractor; Emergency Provider Emergency Medicine; PCP Internal Medicine; Visit Provider Internal Medicine
PROC: 0BJ08ZZ Inspection of Tracheobronchial Tree, Via Natural or Artificial Opening Endoscopic (ICD-10-PCS; CPT 31622; principal; 2021-11-27 10:30)
DX: A41.9 Sepsis, unspecified organism (principal); J18.9 Pneumonia, unspecified organism; J96.01 Acute respiratory failure with hypoxia; B44.9 Aspergillosis, unspecified; C15.9 Malignant neoplasm of esophagus, unspecified; C78.7 Secondary malignant neoplasm of liver and intrahepatic bile duct; I47.1 Supraventricular tachycardia; D84.9 Immunodeficiency, unspecified; D64.81 Anemia due to antineoplastic chemotherapy; T45.1X5A Adverse effect of antineoplastic and immunosuppressive drugs, initial encounter; R73.9 Hyperglycemia, unspecified; I10 Essential (primary) hypertension; Z20.822 Contact with and (suspected) exposure to COVID-19; F41.9 Anxiety disorder, unspecified; M54.9 Dorsalgia, unspecified; E78.5 Hyperlipidemia, unspecified; K21.9 Gastro-esophageal reflux disease without esophagitis; Z79.82 Long term (current) use of aspirin; Z95.0 Presence of cardiac pacemaker; Z87.891 Personal history of nicotine dependence; Z93.1 Gastrostomy status
CPT/HCPCS: 36415; 36600; 71045; 71046; 71275; 80053; 80202; 82375; 82607; 82728; 82746; 82805; 82948; 83036; 83050; 83540; 83550; 83605; 83615; 83735; 83880; 84100; 84145; 84484; 85025; 85610; 85730; 85999; 86140; 86738; 87015; 87040; 87070; 87081; 87102; 87116; 87186; 87205; 87206; 87281; 87449; 87497; 87899; 88108; 88184; 88305; 93005; 93970; 94002; 94003; 94640; 94660; 96365; 96366; 96367; 96372; 96375; 97110; 97161; 97165; 97530; 97535; 99285; A9270; C9113; C9803; G0378; J0131; J0171; J0456; J0692; J0696; J1642; J1650; J1756; J1815; J1940; J1956; J2270; J2405; J2543; J2704; J2930; J3370; J3465; J7040; J7060; J7120; J7512; Q9967; U0003; U0005